=== PATIENT | female | born 1965 | race Caucasian/White ===

== ENCOUNTER 2024-04-13 14:38 | Outpatient (CLI) | payer MEDICARE, OTHER, SELFPAY ==
--- NOTE | ~2024-04-13 | XR_ITS ---
XR abdomen/kub 1V DATE: 04/13/2024 15:11 INDICATION: Calcium kidney stone TECHNIQUE: 2 AP supine views COMPARISON: None FINDINGS: Approximately 5 mm calcification overlies the mid right kidney. At least 2 pinpoint calcifi cations also overlie the lower right renal silhouette. These may be renal calcified calculi or these could be within overlying bowel or other structures. Noncontrast CT abdomen pelvis with the more accu rate and sensitive for detection of urinary tract calculi. Probable splenic calcifications overlie the left upper quadrant. The psoas shadows are intact. No visceromegaly is evident. The bowel gas pattern is unremarkable, without evidence of obstruction. Status post bilateral total hip arthroplasty. IMPRESSION: Cannot exclude right renal calcified calculi; noncontrast CT abdomen pelvis with be more accurate and sensitive for detection of urinary tract calculi. Reviewed, dictated and finalized at [facility]. Reviewed, dictated and finalized at [facility]. PRINT ENGINEER IMPRESSION: Cannot exclude right renal calcified calculi; noncontrast CT abdome n pelvis with be more accurate and sensitive for detection of urinary tract darren culi.
== END 2024-04-13 14:39 | disposition home or self-care (01) ==
PROVIDERS: PCP Family Medicine; Visit Provider Urology
DX: N20.0 Calculus of kidney (principal)
CPT/HCPCS: 74018

== ENCOUNTER 2024-04-17 00:20 | Day surgery (SDC) | payer OTHER, MEDICARE, SELFPAY ==
[2024-04-16 08:49] VITALS: BMI 25.1
--- NOTE | 2024-04-16 08:58 | PC.NURSE ---
Report to the Outpatient Waiting Room, entrance under the green pavilion located off [facility], at time _1045_ on date _[id number]_. Planned Procedure Time: _1245_.? Time changes happen often and if your time is changed the preop area will call you the afternoon before. - You and your visitor will be asked to self-screen and do not enter if you have any COVID symptoms. Please call surgeon if you need to reschedule. - A mask is optional within the hospital at this time. Patients may have clear liquids (water, carbonated beverages, clear teas, apple juice) until 3 hours prior to surgery with a maximum of 20 ounces. - No food from midnight until time of surgery and no smoking. This includes no chewing gum, candy or mints. Take only the following medications with a SIP of water on the morning of surgery: ___Alprazolam and Fluoxetine DO NOT STOP ANY OF YOUR OTHER PRESCRIPTION MEDICATIONS PRIOR TO SURGERY EXCEPT THE FOLLOWING Medications to discontinue per physician Vitamins Date to take last dose____Stop now Please no make-up, nail nepali, hairspray, perfume, deodorant, or body powder the day of surgery.? No jewelry (including any body piercings) or valuables the day of surgery, leave them at home.? Please take a shower or bath the night before, or the morning of, surgery with an antibacterial soap.? Wear comfortable, loose fitting clothing.? - Jewelry must be removed prior to entering the operating room.? Rings and piercings that are not removed may be cut off. - The hospital will not accept responsibility for valuables.? - Please leave all valuables, including medications, at home the day of surgery. If you are going home after surgery, a licensed regional company flatbed truck driver must drive you home.? - NO public transportation without another adult if you receive anesthesia. - We recommend that an adult stay with you for 24 hours following discharge. - We also recommend that you do not drive, make important decision, drink alcoholic beverages, or take any drugs that were not prescribed by your health care provider for at least 24 hours after your discharge time. Follow any additional instructions given to you from your surgeon. Telephone instructions given to _Sri___and asked if any additional questions and then verbalized understanding. Patient advised to call surgeon office or pre surgery nurse liaison [phone] if any additional questions.
[2024-04-17] VITALS (10 sets, daily range): BP systolic 106–138; BP diastolic 66–95; PULSE 60–77; RESP 12–20; TEMP 36.2; O2SAT 92–100; BMI 25.6
--- NOTE | ~2024-04-17 | XR_ITS ---
EXAMINATION: XR retrograde pyelo w/stent RT DATE: 04/17/2024 13:00 ACADEMIC SUPPORT ASSISTANT INDICATION: RIGHT RETRO/STENT . TECHNIQUE: 5 fluoroscopic images of the abdomen and pelvis were obtained during right retrograde pyel ography with stent placement, performed by Kali Mcgee MD. I was not present during the pr ocedure. Fluoroscopy exposure time was 23.3 seconds. Air Kerma 7.39 mGy. DAP 0.60182 mGym2. COMPARISON: X-ray abdomen 04/13/2024 FINDINGS/IMPRESSION: Fluoroscopic documentation of right retrograde pyelography with stent placement. Please refer to the operative note for complete procedural details . Reviewed, dictated and finalized at [facility]. EMIC SUPPORT ASSISTANT
--- NOTE | 2024-04-17 10:46 | ECG_ITS ---
Test Date: 2024-04-17 11:17:45 Measurements Intervals [place] Rate: 61 P: 49 MA: 188 QRS: 0 QRSD: 78 T: 55 QT: 393 QTc: 397 Interpretive Statements SINUS RHYTHM POSSIBLE LEFT ATRIAL ENLARGEMENT [-0.1mV P-WAVE IN V1/V2] LOW QRS VOLTAGE IN PRECORDIAL LEADS [QRS DEFLECTION < 1.0 mV IN CHEST LEADS] No previous ECG available for comparison Electronically Signed On 04-17-2024 15:00:13 WASHERETTE MACHINE OPERATOR by Libby Wong M.D.
[2024-04-17 10:59] LABS: Add Urine Microscopic? YES; Appearance Urine Cloudy (Clear); Bacteria Urine None Seen /hpf; Bilirubin Urine Negative (Negative); Blood Urine 3+ (Negative); Color Urine Yellow (Yellow); Glucose Urine UA Negative (Negative); Ketones Urine Negative (Negative); Leukocyte Esterase Ur 2+ LEU/UL (Negative); Nitrate Urine Negative (Negative); Non Pathogenic Casts 0-2; Protein Urine 2+ mg/dL (Negative); RBC Urine >100 /hpf (0-2); Specific Grav Ur 1.022 (1.001-1.035); Squamous Epithelial Cell Urine Occasional /hpf (Few); Urobilinogen Urine 0.2 mg/dL (<2.0); WBC Urine 51-100 /hpf (0-3)
[2024-04-17] MEDS: LACTATED RINGERS 1,000 ML 30 ML IV CONT (11:00)
--- NOTE | 2024-04-17 11:47 | P.PNAN_ITS ---
Anes - Initial Pre Proc Eval Procedure: Operation Date: 04/17/24 12:45 Proposed Procedures p Cystoscopy, Right Ureteroscopy, Possible Right Retrograde Pyelogram, Possible Right Stone Extraction, Possible Right Stent Placement, Possible Holmium Laser - Kali Mcgee MD Date/Time: 04/17/24 11:47 Surgeon: Kali Mcgee MD Pre Op Diagnosis: right renal stone Patient Data Age: 59 Gender: F Height: 1.73 m Weight: 75 kg Allergies Allergy/AdvReac Type Severity Reaction Status Date / Time No Known Allergies Allergy Verified 04/16/24 08:40 Home Medications ?Medication ?Instructions ?Recorded ?Confirmed ?Type alprazolam 1 mg tablet 1 mg PO TID 04/16/24 04/16/24 History atorvastatin 40 mg tablet 40 mg PO QPM 04/16/24 04/16/24 History calcium 600 mg capsule 600 mg PO DAILY 04/16/24 04/16/24 History cholecalciferol (vitamin D3) 25 25 mcg PO DAILY 04/16/24 04/16/24 History mcg (1,000 unit) capsule (Vitamin D3) estradiol 0.05 mg/24 hr semiweekly 0.05 mg topical 2XW 04/16/24 04/16/24 History transdermal patch fluoxetine 20 mg capsule 20 mg PO DAILY 04/16/24 04/16/24 History lamotrigine 200 mg tablet 200 mg PO HS 04/16/24 04/16/24 History pjjunsdq-mbuu-bhf-folic acid 18 1 tablet PO DAILY 04/16/24 04/16/24 History mg-0.4 mg tablet (One Daily For Women) olanzapine 20 mg tablet 20 mg PO HS 04/16/24 04/16/24 History progesterone micronized 100 mg 100 mg PO HS 04/16/24 04/16/24 History capsule sumatriptan succinate 100 mg tablet 100 mg PO DAILY PRN Migraine 04/16/24 04/16/24 History Headache tamsulosin 0.4 mg capsule 0.4 mg PO QPM 04/16/24 04/16/24 History Laboratory Tests 04/17/24 10:46 Urine Color Yellow (Yellow) Urine Appearance Cloudy H (Clear) Urine pH 6.0 (5.0-9.0) Ur Specific [place] 1.022 (1.001-1.035) Urine Protein 2+ H mg/dL (Negative) Urine Glucose (UA) Negative mg/dL (Negative) Urine Ketones Negative mg/dL (Negative) Ur Blood (Man) 3+ H (Negative) Urine Nitrate Negative (Negative) Urine Bilirubin Negative (Negative) Urine Urobilinogen 0.2 mg/dL (<2.0) Ur Leukocyte Esterase 2+ H [place]/UL (Negative) Urine RBC >100 H /hpf (0-2) Urine WBC 51-100 /hpf (0-3) Ur Squamous Epith Cells Occasional /hpf (Few) Urine Bacteria None seen /hpf Urine Casts 0-2 Patient hx anesthesia problems: none Family hx anesthesia problems: none Results Review: All pre-operative results and documents have been reviewed as part of the pre- operative evaluation. [facility] Social History Social History Smoking status: Never smoker Alcohol intake: current Living arrangements: with family Spiritual care concerns: No Anes - Eval Final PreProcedure Day of Procedure 04/17/24 11:47 Patient weight: normal Heart: regular rate and rhythm Lungs: clear to auscultation Airway: Mallampati scale class II Neurological: alert and oriented Last oral intake: >/= 8 hours ASA classification: III Emergent: no Anesthetic plan: proceed Anesthesia type and monitoring: general LMA and standard monitoring Results Review: All pre-operative results and documents have been reviewed as part of the pre- operative evaluation. Informed Consent: The patient's anesthetic plan and its attendant risks and benefits were discussed with the patient/family/POA. Questions were solicited and answers provided to the satisfaction of the patient/family/POA.
[2024-04-17] MEDS: fentaNYL CITRATE INJ (*CRX) 100 MCG/2 ML VIAL 50 MCG IV PUSH (12:17)
--- NOTE | 2024-04-17 12:36 | WPDHPUPDATE1 ---
History and Physical Update Update Date/Time: 04/17/24 12:36 History and Physical has been reviewed, including an updated exam of the patient. There are NO changes in the patient's condition. Risks, benefits, and alternatives have been discussed and questions answered. Patient agrees to proceed with procedure. Proceed with cystoscopy, right retrograde, right ureteroscopy with stone extraction, possible laser, stent placement
--- NOTE | 2024-04-17 12:49 | PM.IMHP ---
H&P: HPI History of Present Illness Date/Time: 04/17/24 12:49 Chief Complaint: 6 mm right upj calculus Narrative: 59 yr old with 6mm right upj calculus. Here for right ureteroscopy Review of Systems Review of Systems: All systems reviewed & are unremarkable except as noted in HPI and below [facility] Social History Social History Smoking status: Never smoker Alcohol intake: current Living arrangements: with family Spiritual care concerns: No Meds Home Medications and Allergies Home Medications ?Medication ?Instructions ?Recorded ?Confirmed ?Type alprazolam 1 mg tablet 1 mg PO TID 04/16/24 04/17/24 History atorvastatin 40 mg tablet 40 mg PO QPM 04/16/24 04/16/24 History calcium 600 mg capsule 600 mg PO DAILY 04/16/24 04/16/24 History cholecalciferol (vitamin D3) 25 25 mcg PO DAILY 04/16/24 04/16/24 History mcg (1,000 unit) capsule (Vitamin D3) estradiol 0.05 mg/24 hr semiweekly 0.05 mg topical 2XW 04/16/24 04/16/24 History transdermal patch fluoxetine 20 mg capsule 20 mg PO DAILY 04/16/24 04/17/24 History lamotrigine 200 mg tablet 200 mg PO HS 04/16/24 04/16/24 History hprdesya-asds-frw-folic acid 18 1 tablet PO DAILY 04/16/24 04/16/24 History mg-0.4 mg tablet (One Daily For Women) olanzapine 20 mg tablet 20 mg PO HS 04/16/24 04/16/24 History progesterone micronized 100 mg 100 mg PO HS 04/16/24 04/16/24 History capsule sumatriptan succinate 100 mg tablet 100 mg PO DAILY PRN Migraine 04/16/24 04/16/24 History Headache tamsulosin 0.4 mg capsule 0.4 mg PO QPM 04/16/24 04/16/24 History Allergies Allergy/AdvReac Type Severity Reaction Status Date / Time No Known Allergies Allergy Verified 04/17/24 12:00 Vital Signs Vital Signs - 24 hr 04/17/24 09:05 Temperature 36.2 C L Pulse Rate 70 Respiratory Rate 16 Blood Pressure 138/86 Pulse Oximetry 96 Oxygen Delivery Room Air Exam Const: General: cooperative; No comfortable Resp: Effort & Inspection: normal respiratory effort Cardio: Rate: regular rate Rhythm: regular rhythm H&P: Results Labs Labs: Urine 04/17/24 Range/Units 10:46 Urine Color Yellow (Yellow) Urine Appearance Cloudy H (Clear) Urine pH 6.0 (5.0-9.0) Ur Specific [place] 1.022 (1.001-1.035) Urine Protein 2+ H (Negative) mg/dL Urine Glucose (UA) Negative (Negative) mg/dL Assessment and Plan Assessment and plan (1) Right renal stone: Code(s): N20.0 - Calculus of kidney Status: Acute Assessment and Plan: Cystoscopy, right retrograde, right ureteroscopy with laser, stent placement.
[2024-04-17] MEDS: ceFAZolin 2 GM/D5W 50 ML 2 GM/50 ML BAG IVPB (12:55)
--- NOTE | 2024-04-17 13:32 | P.OP_ITS ---
Procedure Note - Detailed Date of Procedure 04/17/24 Pre-op Diagnosis right renal stone-6 mm Post-op Diagnosis Same Procedure Performed Cystoscopy, right retrograde, right ureteroscopy with stone extraction, right ureteral stent placement 4.8 [place] contour Surgeon Kali Mcgee MD Anesthesia General Description of Procedure Patient was taken to the operative suite correctly identified. Once anesthesia was obtained she was placed in dorsal lithotomy position and prepped and draped usual sterile fashion. Nineteen [place] scope was inserted into the urethra. Right ureteral orifice was cannulated with a guidewire. I dilated the orifice with an 810 dilator. Access sheath was then placed. Mini flexible ureteral scope was inserted. The stone was in the renal pelvis. Using escape basket was removed retrieved in 1 piece. Pyelogram was then performed to confirm placement of the stent. 4.8 [place] contour stent was placed with the proximal end coiled in the renal pelvis and the distal in the bladder. 2% viscous lidocaine was inserted urethra patient is taken recovery stable condition. She will follow-up in a week's time for stent removal. We will discuss and schedule lithotripsy of the left renal stones at that time. This completes dictation. Please send a copy of op note to my office Estimated Blood Loss 0 Drains Yes Packing No Pathology Yes Complications No immediate complications Condition Stable Disposition PACU
[2024-04-17] MEDS: oxyCODONE HCL (*CRX) 5 MG TAB IR PO (15:10)
== END 2024-04-17 15:47 | disposition home or self-care (01) ==
PROVIDERS: PCP Family Medicine; Visit Provider Urology
PROC: (CPT 52352; principal; 2024-04-17 12:45)
DX: N20.0 Calculus of kidney (principal)
CPT/HCPCS: 52356; 74420; 81001; 82365; 88300; 93005; A9270; C1758; C1769; C2617; J0690; J2250; J3010; J7120; Q9966

== ENCOUNTER 2024-05-29 13:58 | Outpatient (CLI) | payer OTHER, MEDICARE, SELFPAY ==
--- NOTE | ~2024-05-29 | XR_ITS ---
Exam: Abdomen 2V HISTORY: CALCIUM KIDNEY STONE. F/U. LITHO X 1 MO AGO RT SIDE COMPARISON: 04/13/2024 TECHNIQUE: Supine images of the abdomen and pelvis. FINDINGS: Bowel gas pattern is non-obstructive. There is no free air or deep sulci. Multiple stones are identified within the bilateral kidneys. The larger of many stones which were present in the right kidney are no longer seen on today's examin ation. Remaining stones persists. Lung bases are unremarkable. Bones and soft tissues are unremarkable. IMPRESSION: Nonspecific, nonobstructive bowel gas pattern. Interval resolution of the largest of the right-sided renal calculi, detected on previous examination . Reviewed, dictated and finalized at location [facility]. THESIOLOGY FELLOW IMPRESSION: Nonspecific, nonobstructive bowel gas pattern. Interval resolution of the largest of the right-sided renal calculi, detected o n previous examination.
--- OUTSIDE RECORDS SUMMARY | 2024-05-31 18:41 | XMS_ITS | Referral Summary ---
Author Organization [facility] Address [address] [place] [id number] Care Team Providers Care Director Of Accounts Receivable Name Role Phone Philip Vergara MD Primary Care Provider [phone] Safia Romano MD Unavailable [phone] Allergies Active Allergy Reactions Criticality Noted Date Comments Amitriptyline Hcl Unknown High 11/23/2010 Auditory and visual hallucinations Clindamycin Cough,Hives,Itching, Rash Medium 01/26/2016 Amitriptyline Unknown 08/26/2011 Polysorbate Rash Medium 11/23/2010 Quetiapine Unknown 07/04/2008 Ziprasidone Unknown 10/03/2014 Ziprasidone Hcl Unknown 07/04/2008 Sertraline Unknown 07/04/2008 Medications ALPRAZolam (XANAX) 1 mg tablet Take 1 tablet (1 mg total) by mouth 3 (three) times a day as needed 5 9 Active cholecalciferol (VITAMIN D-3) 2,000 unit tablet Take 1 tablet (2,000 Units total) by mouth incising machine operator before breakfast 9 Active lamoTRIgine (LaMICtal) 200 mg tabletIndicatio ns:Depression associated with Bipolar Disorder Take 1 tablet (200 mg total) by mouth nightly at bedtime. 1 9 Active FLUoxetine (PROzac) 20 mg capsule Take 1 capsule (20 mg total) by mouth incising machine operator before breakfast Active atorvastatin (LIPITOR) 40 mg tablet Take 1 tablet (40 mg total) by mouth nightly 0 Active melatonin tablet Take 20 tablets (20 mg total) by mouth nightly 1 Active pramipexole (MIRAPEX) 1 mg tabletIndicatio ns:Restless Legs Syndrome Take 1 tablet (1 mg total) by mouth 2 (two) times a day with lunch and bedtime 1 Active SUMAtriptan (IMITREX) 100 mg tablet Take 1 tablet (100 mg total) by mouth as needed 1 Active OLANZapine (ZyPREXA) 20 mg tablet Take 1 tablet (20 mg total) by mouth nightly 1 Active amoxicillin 500 mg capsule Take 1 tablet/capsule (500 mg total) by mouth For dental procedures 2 Active HYDROcodone-john taminophen (NORCO) 5-325 mg per tablet Take 1 tablet by mouth 2 Active acetaminophen (TYLENOL) 500 mg tablet Take 1 tablet (500 mg total) by mouth every 6 (six) hours as needed for pain Active dorzolamide-zohra oloL (COSOPT) 22.3-6.8 mg/mL ophthalmic solution 1 drop 2 (two) times a day 3 Active hydrOXYzine (VISTARIL) 50 mg capsule hydroxyzine pamoate 50 mg capsule TAKE 1 CAPSULE (50 MG TOTAL) BY MOUTH EVERY 6 (SIX) HOURS Active montelukast (SINGULAIR) 10 mg tablet Take 1 tablet (10 mg total) by mouth every evening 3 Active phentermine (ADIPEX-P) 37.5 mg tablet Take 1 tablet (37.5 mg total) by mouth daily before breakfast 3 Active predniSONE (DELTASONE) 20 mg tablet TAKE 1 TABLET BY MOUTH TWICE A DAY FOR 5 DAYS AND THEN 1 TABLET DAILY FOR 5 DAYS 3 Active rivaroxaban (Xarelto) 10 mg tablet Xarelto 10 mg tablet TAKE 1 TABLET BY MOUTH EVERY DAY Active terbinafine (LamiSIL) 250 mg tablet terbinafine HCl 250 mg tablet TAKE 1 TABLET (250 MG) BY MOUTH ONCE DAILY Active meloxicam (MOBIC) 15 mg tablet Take 1 tablet (15 mg total) by mouth daily 90 tablet 3 Active Active Problems Problem Noted Date Diagnosed Date Anxiety 06/10/2021 Asthma 06/10/2021 History of migraine headaches 06/10/2021 At risk for obstructive sleep apnea 06/10/2021 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 Overview (05/26/2021): Added automatically from request for surgery [id number] Acute glaucoma of right eye 02/09/2021 Acute kidney injury 02/09/2021 Depression 02/09/2021 Borderline type 2 diabetes mellitus 02/09/2021 Closed dislocation of left hip 02/09/2021 Controlled restless legs syndrome 02/09/2021 Diabetes mellitus with stage 1 chronic kidney disease ([facility]/HCC) 02/09/2021 Fall injury while running 02/09/2021 History of total right hip replacement Hyperleukocytosis 02/09/2021 Increasing frequency of seizure activity 021 Migraine without status migrainosus, not intract able 02/09/2021 Neuropathy of left hand 02/09/2021 Normocytic anemia 02/09/2021 Opioid use 02/09/2021 Well child examination 02/09/2021 Hip joint instability, left 10/27/2020 Overview (10/27/2020): Added automatically from request for surgery [id number] Osteoarthritis of left hip 06/08/2018 Bilateral groin pain 05/04/2018 Myalgia, other site 05/04/2018 CKD (chronic kidney disease) stage 3, GFR 30-59 ml/min 02/27/2018 Serum creatinine raised 09/21/2017 Cellulitis, gluteal, left 09/12/2017 Multiple melanocytic nevi 09/09/2016 Costochondritis 10/09/2015 Dysuria 10/09/2015 Seborrheic keratosis, inflamed 02/21/2015 Compound nevus 02/21/2015 History of malignant melanoma 02/21/2015 Bipolar disorder 10/03/2014 Contact dermatitis 10/03/2014 Viral exanthem 07/22/2014 Actinic keratosis 06/06/2014 Hyperlipidemia 01/11/2012 Benign neoplasm of skin 11/30/2010 Malignant melanoma of skin 11/30/2010 Immunizations Name Administration Dates Next Due Influenza, Quadrivalent, Spl it, Preservative Free, Intramuscular 01/08/2021,01/18/2020 Social History Tobacco Use Types Packs/Day Years Used Date Smoking Tobacco: Never Smokeless Tobacco: Never Tobacco Cessation:Counseling Given: Not Answered Alcohol Use Standard Drinks/Week Comments Yes 0 (1 standard drink = 0.6 oz pur e alcohol) AUDIT-C Answer Date Recorded Q1: How often do you have a drink containing alc ohol? Monthly or less 06/17/2021 Average Number of Drinks Not on file 022 Frequency of Binge Drinking Not on file 01/2022 Comments No Sex and Gender Information Value Date Recorded Sex Assigned at Not on file Legal Sex Female 2:28 AM ENERGY CONTROL OFFICER Gender Identity Female 05/27/2021 1:46 PM ENERGY CONTROL OFFICER Sexual Orientation Not on file Occupation Industry Job Start Date Job End Date disabled Not on file Not on file Not on file Last Filed Vital Signs Vital Sign Reading Time Taken Comments Blood Pressure 127/79 06/18/2021 4:56 PM ENERGY CONTROL OFFICER Pulse 90 06/18/2021 4:56 PM ENERGY CONTROL OFFICER Temperature 36.4 ??C (97.5 ??F) 06/18/2021 4:56 PM CS T Respiratory Rate 16 06/18/2021 4:56 PM ENERGY CONTROL OFFICER Oxygen Saturation 94% 06/18/2021 4:56 PM ENERGY CONTROL OFFICER Inhaled Oxygen Concentration - - Weight 85.8 kg (189 lb 3.2 oz) 06/17/2021 8:08 A M ENERGY CONTROL OFFICER Height 175.3 cm (5' 9 ) 06/17/2021 8:08 AM ENERGY CONTROL OFFICER Body Mass Index 27.94 06/17/2021 8:08 AM ENERGY CONTROL OFFICER Plan of Treatment Not on file Medical Devices Implanted Type Area Big Data Solutions Architect Device Identifier Shelf Expiration Date Model / Serial / Lot Hip Bilateral : Hip Wrist Left: Wrist Description:Screws [employer]/ Ortho [id number] 40mm 22mm 2 Mobility Insert Acetabular Xlpe - [id number] Implanted:Qty: 1 on 06/17/2021 by Nate Little MD at [facility] Left: Hip [employer]/Or tho [id number] 09/30/2030 [id number] / / [id number] [employer]/ Ortho [id number] Or3o 40mm 2 Mobility Liner Acetabular - [id number] Implanted:Qty: 1 on 06/17/2021 by Nate Little MD at [facility] Left: Hip [employer]/Or tho [id number] 10/06/2030 [id number] / / [id number] [employer]/ Ortho [id number] 22mm Hip +8mm 12/14 Head Femoral Oxinium - [id number] Implanted:Qty: 1 on 06/17/2021 by Nate Little MD at [facility] Left: Hip [employer]/Or tho [id number] 01/03/2031 [id number] / / [id number] Procedures Procedure Name Priority Date/Time Associated Diagnosis Comments SCREENING MAMMOGRAM BILATERAL W KP Schedule Routine, Read Routine (OP Routine) 02/20/2024 2:55 PM CDT Encounter for screening mammogram for malignant neoplasm of breast EGFR Routine 06/18/2021 3:01 AM ENERGY CONTROL OFFICER HEMOGLOBIN A1C Routine 10/01/2020 7:34 AM CDT LIPID PANEL Routine 10/01/2020 7:34 AM CDT from Last 3 Months or Most Recently Relevant to Health Maintenance Results * Screening Mammogram Bilateral W Kp (02/20/2024 2:55 PM CDT) Anatomical Region Laterality Modality Breast Bilateral Mammography Impressions 02/20/2024 3:06 PM CDT BI-RADS?? ATLAS category (overall): 1 - Negative There is no mammographic evidence of malignancy. A 1 year screening mammogram is recommended. The patient has been or will be contacted. We recommend annual screening mammography for women at average risk of breast cancer beginning at age 40, based on guidelines of the [place] [employer] (ACR Practice Parameter for the Performance of Screening and Diagnostic Mammography) and [place] [employer]. For women with and elevated risk of breast cancer, please refer to the ACR Practice Parameter for specific screening recommendations. The patient will be entered into a reminder system with a target due date of 1 year for her next screening exam. Narrative 02/20/2024 3:06 PM CDT Screening Mammogram Bilateral W Kp: 02/20/24 The study was acquired using full field digital technology and interpreted from soft copy. 2D digital mammographic views, as well as 3D digital tomosynthesis were performed in the CC and MLO projections. CLINICAL: ??Encounter for screening mammogram for malignant neoplasm of breast. ??No relevant medical history has been documented for this patient. History of breast cancer in Neg Hx. COMPARISONS: 02/15/2023 Screening Mammogram Bilateral W Kp 11/13/2021 Diagnostic Mammogram Right W Kp 10/06/2021 Screening Mammogram Bilateral W Kp 09/25/2020 Screening Mammogram Bilateral W Kp 08/23/2018 Screening Mammogram Bilateral W Kp 08/17/2017 Screening Mammogram Bilateral W Kp BREAST TISSUE: The breasts are heterogeneously dense, which may obscure small masses. FINDINGS: No suspicious masses, suspicious calcifications, or other suspicious findings are seen within either breast. There has been no suspicious change. us Aleshia Winston MD IMG MAMMO PROCEDURES Final Res ult * eGFR (06/18/2021 3:01 AM ENERGY CONTROL OFFICER) eGFR 75 mL/min/1. 73 m2 [facility] Comment: Interpretive Data Reference Interval Normal ?>/= 90 mL/min/1.73m2 Mildly decreased* ? 60 - 89 mL/min/1.73m2 Mildly to moderately decreased ?45 - 59 mL/min/1.73m2 Moderately to severely decreased ??30 - 44 mL/min/1.73m2 Severely decreased ?15 - 29 mL/min/1.73m2 Kidney Failure ?< 15 ??mL/min/1.73m2 *Relative to young adult level Estimated glomerular filtration rate is determined by the 2020 CKD-EPI equation recommended by the National Kidney Foundation (A Unifying Approach to GFR Estimation: Recommendations of the NKF-ASK Task Force on Reassessing the Inclusion of Race in Diagnosing Kidney Disease, JASN 2020). The CKD-EPI equation should not be used for patients with unstable renal function and has not been validated in children and those over 70. Current interpretive data was last reviewed 2021. Blood 06/18/2021 3:01 AM ENERGY CONTROL OFFICER 06/18/2021 3:03 AM ENERGY CONTROL OFFICER us Rik San MD LAB BLOOD ORDERABLES Final Result Performing Organization Address [facility]/ZIP Co de Phone Number [facility] [id number] [facility]. Department [place] [address] * (ABNORMAL) Hemoglobin A1c (10/01/2020 7:34 AM CDT) Pathologist [facility] Hemoglobin A1c % 5.7(H) 4.0 - 5.6 % [facility] Comment: ADA 2016 GUIDELINES: ??Initial Diagnostic Criteria ? HbA1c Result: ?Interpretation: ?<5.7% ? Normal ?5.7-6.4% ?At risk for diabetes mellitus ?>=6.5% ?Consistent with diabetes mellitus ??Diabetes monitoring ? Target value (ADA Recommended) ?? <7% 10/01/2020 7:34 AM CDT 10/01/2020 7:44 AM CDT Narrative Resulting Agency Comment IN us Jaun Evangelista MD LAB BLOOD ORDERABLES Final Result Performing Organization Address [facility]/ZIP Co de Phone Number [facility] [address] [place] [address], [facility] [phone] * Lipid panel (10/01/2020 7:34 AM CDT) Pathologist [facility] Triglycerides 106 0 - 149 mg/dL [facility] Comment: National Lipid Association/NCEP Guidelines: ?? Normal ?< 150 mg/dL ?? Borderline high ?? 150-199 mg/dL ?? High ?200-499 mg/dL ?? Very High ? >=500 mg/dL Cholesterol 133 0 - 199 mg/dL [facility] Comment: National Lipid Association/NCEP Guidelines: Desirable ? < 200 mg/dL Borderline high: ??200-239 mg/dL High Risk: ?>=240 mg/dL HDL Cholesterol 44 mg/dL [facility] Comment: Reference Ranges: ? Males: >=40 mg/dL ? Females: >=50 mg/dL LDL Cholesterol, Calc 68 0 - 129 mg/dL [facility] Comment: National Lipid Association/NCEP Guidelines: ??Optimal ? < 100 mg/dL ??Near Optimal ?100-129 mg/dL ??Borderline high 130-159 mg/dL ??High ?>=160 mg/dL Cholesterol/HDL Ratio 3.0 [facility] Comment: Optimal ??< 3.5:1 High ? > 5:1 10/01/2020 7:34 AM CDT 10/01/2020 7:44 AM CDT Narrative Resulting Agency Comment IN us Jaun Evangelista MD LAB BLOOD ORDERABLES Final Result [facility] [address] [place], [place] [id number] [place] [address] from Last 3 Months or Most Recently Relevant to Health Maintenance Insurance MEDICARE [facility]O Address: [address] [address] [place] [address] MEDICARE [facility]O Address: [address] [address] [place] [address] MEDICARE [facility]O Address: [address] [address] [place] [address] Advance Directives For more information, please contact: [phone] * Full Code (Latest Code Status on File) Date Activated Date Inactivated Comments 06/17/2021 12:53 PM 06/18/2021 9:57 PM Care Teams Director Of Accounts Receivable Relationship Specialty Start Date End Date Philip Vergara MD [phone] [address] PCP - General Family Medicine 10/18/18 Safia Romano MD [address] [address] Consulting Physician Obstetrics and Gynecology 10/06/21
--- OUTSIDE RECORDS SUMMARY | 2024-05-31 18:41 | XMS_ITS | Data Portability ---
Author Organization [facility] , [facility] Address [address] [place] [address] Assessment No assessment recorded. Plan of Treatment Reminders Order Date Submit Date Provider Last Modified By Organization Details Last Modified Time Details Appointments None recorded. Lab HPV E6+E7 mRNA, qualitative PCR, cervix 2021 022 [facility], [address] [place], [address], 2 15:47:18 pap, LB 2021 022 [facility], [address] [place], [address], 2 17:53:52 pap, LB 2023 024 [facility], [address] [place], [address], 4 15:52:32 HPV E6+E7 mRNA, qualitative PCR, cervix 2023 024 [facility] [facility], [address] [place], [address], 4 09:20:56 Referral None recorded. Procedures None recorded. Surgeries None recorded. Imaging MAMMO, screening, digital, bilateral 2021 [facility] Central Counts Include [facility], [address] [place], [address], 2 13:43:56 MAMMO, screening, digital, bilateral [address] [facility] Central Counts Include [address] [facility], [address] [place], [address], 4 16:10:06 Medication Orders Estrace 0.01% (0.1 mg/gram) vaginal cream 2023 024 [id number], [address], [place], [address], 4 15:43:42 Prometrium 100 mg capsule 2023 024 [id number], [address], [place], [address], 4 15:43:41 Vivelle-Dot 0.05 mg/24 hr transdermal patch 2023 024 [id number] [address], [place], [address], 4 15:43:43 Patient TargetsNo targets recorded. Patient Instructions Encounter Date Encounter Id Patient Instructions Last Modified By Organization Details Last Modified Time 03/18/2022 [id number] A healthy lifestyle: care instructions Not available 03/18/2022 13:54:44 substance use disorder: care instructions Not available 03/18/2022 13:54:44 tobacco cessation Not availabl e 03/18/2022 13:54:44 calcium and vitamin D combination Not available 03/18/2022 13:54:44 depression (wome n only) Not available 03/18/2022 13:54:44 eating healthy foods: care instructions Not available 03/18/2022 13:54:44 exercise program : getting started Not available 03/18/2022 13:54:44 12/27/2023 [id number] body mass index: care instructions Not available 12/27/2023 13:57:44 mammogram: about this test Not available 12/27/2023 13:57:44 Reason for Referral None Reported. Results Created Date Observation Date Name Description Value Unit Range Abnormal Flag Note LastModifiedBy Organization Detail LastModifiedTime 03/18/20 22 03/19/2022 HPV HIGH RISK HPV high risk Negati ve negati ve normal The HPV High Risk assay is inten ded for use as co-te sting with cytol ogy and not as a subst itute for regul ar cervi darren cytol ogy scree alayna. This assay is not inten ded for use as a scree alayna devic e for women under age 30 with lawrence l cervi darren cytol ogy. Not Available [facility] [address] [place], [address], 03/19/2022 15:47:18 03/18/2003/23/2022 THINP REP TIS PAP clinical information: normal None given Not Available [facility] [address] [place], [address], 03/23/2022 17:53:52 03/18/20 22 03/23/2022 THINP REP TIS PAP LMP: normal NONE GIVEN Not Available [facility] [address], [address], 03/23/2022 17:53:52 03/18/20 22 03/23/2022 THINP REP TIS PAP prev. Pap: normal NONE GIVEN Not Available [facility] [address] [place], [address], 03/23/2022 17:53:52 03/18/20 22 03/23/2022 THINP REP TIS PAP prev. BX: normal NONE GIVEN Not Available [facility] [address] [place], [address], 03/23/2022 17:53:52 03/18/20 22 03/23/2022 THINP REP TIS PAP source: normal Cervi x Not Available [facility] [address] [place], [address], 03/23/2022 17:53:52 03/18/20 22 03/23/2022 THINP REP TIS PAP statement of adequacy: normal SATIS FACTO RY FOR EVALU ATION Not Available [address] [address] [place], [address], 03/23/2022 17:53:52 03/18/20 22 03/23/2022 THINP REP TIS PAP interpretati on/result: Negat blue for intra epith elial lesio n or malbelen sernacy . [place] boss rn; predo amina galan parab ronda cells Not Available [address] [address] [place], [address], 03/23/2022 17:53:52 03/18/20 22 03/23/2022 THINP REP TIS PAP comment: normal This Pap test has been evalu ated with compu ter jose ramiro techn ology . Not Available [address] [address] [place], [address], 03/23/2022 17:53:52 03/18/20 22 03/23/2022 THINP REP TIS PAP cytotechnolo gist: normal XUAN, CT( CP) CT scree alayna locat ion: [address] [address] [place] [address] Not Available [address] [address] [place], [address], 03/23/2022 17:53:52 03/18/20 22 03/23/2022 THINP REP TIS PAP comment EXPLA NATOR Y NOTE: The Pap is a scree alayna test for cervi darren cance r. It is not a diagn ostic test and is subje ct to false negat blue and false posit blue resul ts. It is most relia ble when a satis facto ry sampl e, regul wilma obtai mnapreet, is submi tted with relev ant clini darren findi ngs and histo ry, and when the Pap resul t is evalu ated along with histo nita and curre nt clini darren infor dilcia n. Not Available [address] [place], [address], 03/23/2022 17:53:52 12/27/19 24 01/01/2024 THINP REP TIS PAP clinical information: normal None given Not Available [address], [address], 01/01/2024 15:52:32 12/27/19 24 01/01/2024 THINP REP TIS PAP LMP: normal NONE GIVEN Not Available [address], [address], 01/01/2024 15:52:32 12/27/19 24 01/01/2024 THINP REP TIS PAP prev. Pap: normal NONE GIVEN Not Available [address], [address], 01/01/2024 15:52:32 12/27/19 24 01/01/2024 THINP REP TIS PAP prev. BX: normal NONE GIVEN Not Available [address], [address], 01/01/2024 15:52:32 12/27/19 24 01/01/2024 THINP REP TIS PAP source: normal None given Not Available [address], [address], 01/01/2024 15:52:32 12/27/19 24 01/01/2024 THINP REP TIS PAP statement of adequacy: normal Satis facto ry for evalu ation . Endoc ervic al/tr ansfo rmati on zone compo nent absen t. Not Available [address] [place], [address], 01/01/2024 15:52:32 12/27/19 24 01/01/2024 THINP REP TIS PAP interpretati on/result: normal Cytol ogy Resul ts: Negat blue for intra epith elial lesio n or malbelen beltran . Not Available [facility] [address] [place], [address], 01/01/2024 15:52:32 12/27/19 24 01/01/2024 THINP REP TIS PAP comment: normal This Pap test has been evalu ated with compu ter jose ramiro techn ology . Not Available [facility] [address] [address], [place], [address], 01/01/2024 15:52:32 12/27/19 24 01/01/2024 THINP REP TIS PAP cytotechnolo gist: normal ESW, CT( CP) CT Scree alayna Locat ion: [facility] [place] [address] [place] [address] Not Available [address] [address] [address], [place], [address], 01/01/2024 15:52:32 12/27/19 24 01/01/2024 THINP REP TIS PAP comment EXPLA NATOR Y NOTE: The Pap is a scree alayna test for cervi darren cance r. It is not a diagn ostic test and is subje ct to false negat blue and false posit blue resul ts. It is most relia ble when a satis facto ry sampl e, regul wilma obtai manpreet, is submi tted with relev ant clini darren findi ngs and histo ry, and when the Pap resul t is evalu ated along with histo nita and curre nt clini darren infor matio n. Not Available [facility] [address] [address], [place], [address], 01/01/2024 15:52:32 12/27/19 24 01/03/2024 HPV HIGH RISK HPV high risk Negati ve negati ve normal The HPV High Risk assay is inten ded for use as co-te sting with cytol ogy and not as a subst itute for regul ar cervi darren cytol ogy scree alayna. This assay is not inten ded for use as a scree alayna devic e for women under age 30 with lawrence l cervi darren cytol ogy. Not Available [facility] [address] [place], [address], 01/04/2024 09:20:56 02/17/20 23 02/15/2023 MAMMO , scree alayna, digit al, bilat eral No observ ation record ed. [address] [facility] [address] [facility], [place], [address], 02/16/2023 09:26:03 02/20/20 24 02/20/2024 MAMMO , scree alayna, digit al, bilat eral No observ ation record ed. [address], [address], 02/20/2024 22:37:33 Result Notes None recorded. Problems Name Problem SNOMED Code Status Onset Date Resolution Date Notes Provider Name and Address Organization Details Recorded Time Breast neoplasm screenin g NOS Completed 201610/01/2016 Screenin g for breast cancer, unspecif ied; Location : None Severity : Moderate Progress : Stable Added By: Samaria Ocampo Add to Current Problems : YES ProblemS tatus: Resolve Not Available [facility] 1 20:40:09 Finding of menstrua l bleeding Completed 201509/29/2015 Oligomen orrhea, unspecif ied; Progress : Stable Added By: Samaria Ocampo Add to Current Problems : NO ProblemS tatus: Resolve Not Available [facility] 2 21:40:[address] Concept Completed 201607/17/2017 Encounte r for follow-u p examinat ion after complete d treatmen t for conditio ns other than malignan t neoplasm ; Progress : Stable Added By: Cris Lin Add to Current Problems : NO ProblemS tatus: Resolve Not Available [facility] 2 21:40:06 Surgical follow-u p - normal [id number] Completed 201607/17/2017 Follow-u p exam followin g surgery; Location : None Severity : Moderate Progress : Stable Added By: Cris Lin Add to Current Problems : YES ProblemS tatus: Resolve Not Available [facility] 1 20:40:09 Breast neoplasm screenin g status [id number] Completed 201610/01/2016 Encounte r for other screenin g for malignan t neoplasm of breast; Progress : Stable Added By: Samaria Ocampo Add to Current Problems : NO ProblemS tatus: Resolve Screenin g for breast cancer, unspecif ied; Location : None Progress : Stable Added By: Samaria Ocampo Add to Current Problems : YES ProblemS tatus: Resolve Not Available [facility] 2 21:40:06 Menometr orrhagia [id number] Completed 201610/02/2017 Menometr orrhagia ; Location : None Progress : Stable Added By: Jackeline Soto Add to Current Problems : YES ProblemS tatus: Resolve Not Available [facility] 2 21:40:05 Oligomen orrhea 16669291 Completed 201509/29/2015 Oligomen orrhea; Location : None Progress : Stable Added By: Samaria Ocampo Add to Current Problems : YES ProblemS tatus: Resolve Not Available [facility] 2 21:40:05 Finding of menstrua l bleeding Completed 201610/02/2017 Excessiv e and frequent menstrua tion with regular cycle; Progress : Stable Added By: Jackeline Soto Add to Current Problems : NO ProblemS tatus: Resolve Not Available [facility] 2 21:40:05 Family planning educatio n done [id number] Completed 201409/20/2014 Family planning advice; Location : None Severity : Moderate Progress : Stable Added By: Fang Huizar Add to Current Problems : YES ProblemS tatus: Resolve Not Available [facility] 1 20:40:10 Herpes simplex 22828489 Completed 201409/20/2014 Herpes simplex, without complica tion; Location : None Progress : Stable Added By: Meckfess el, Fang A Add to Current Problems : YES ProblemS tatus: Resolve Not Available [facility] 21:40:05 Postoper ative follow-u p visit Completed 201607/17/2017 Follow-u p exam followin g surgery; Location : None Progress : Stable Added By: Cris Lin Add to Current Problems : YES ProblemS tatus: Resolve Not Available [facility] 21:40:05 Problem Notes None recorded. Procedures Surgical History Date Name Laterality Status Provider Name and Address Organization Details Recorded Time 02/16/20 23 Most Recent Mammogram completed Safia Romano MD [address] [facility], [place], [address], [facility] 02/16/2023 09:25:43 03/18/20 22 Date of Last [facility] 10/25/2023 15:15:31 05/09/19 14 Date of Last Colonoscopy completed [facility] 03/18/2022 13:40:01 tonsillectomy completed Isabel [facility] 03/18/2022 13:41:08 hernia repair completed [facility] 03/18/2022 13:41:19 total replacement of right hip joint completed Isabel [facility] [facility] IV 03/18/2022 13:41:45 total replacement of left hip joint completed [facility] IV 11/21/2023 15:11:07 Imaging Results Imaging Date Name Status LastModified by Organiz ation Details LastModified Time 02/15/2023 MAMMO, screening, digital, bilateral completed [address] [facility] [address] [facility], [place], [address], 02/16/2023 09:26:03 02/20/2024 MAMMO, screening, digital, bilateral completed [address], [address], 02/20/2024 22:37:33 Procedure Notes None recorded. Medical Equipment None Reported. Allergies No known drug allergies Medications Name Sig Start Date Stop Date Status Note LastModified by Organization Details LastModified Time amoxicill in 500 mg capsule TAKE 4 CAPSULES BY MOUTH 1 HOUR PRIOR TO DENTAL APPOINTM ENT 11/20 completed Not Available Not Available Not Available pramipexo le 1 mg tablet TAKE 1 TABLET BY MOUTH THREE TIMES A DAY active Not Available Not Available No t Available atorvasta tin 40 mg tablet TAKE 1 TABLET BY MOUTH EVERY DAY active Not Available Not Available No t Available metformin 500 mg tablet 1 po BID 03/18 completed metFORMI N 500 mg oral tablet RxNorm: 064263 Allow Substitu tion: True Refill Denied: No Refill DateOccu rred: 07/23/19 15 Edited by: Anabel Rahman) on 02/18/20 21 Stopped by: Anabel Rahman) on Not Available Not Available Not Available lamotrigi ne 200 mg tablet TAKE 1 TABLET BY MOUTH EVERYDAY AT BEDTIME active Not Available Not Available No t Available azithromy db 250 mg tablet TAKE 1 TABLET (250 MG) BY MOUTH ONCE DAILY 03/18 completed Not Available Not Available Not Available Prozac 40 mg capsule Take 2 capsule( s) by mouth qam 12/26 completed Prozac 40 mg oral capsule RxNorm: 019061 Allow Substitu tion: True Refill Denied: No Refill DateOccu rred: 07/23/19 15 Edited by: Anabel Rahman) on 02/18/20 21 Stopped by: nAabel Rahman) on Not Available Not Available Not Available alprazola m 1 mg tablet TAKE 1 TABLET BY MOUTH THREE TIMES A DAY active Not Available Not Available No t Available fluconazo le 150 mg tablet TAKE 1 TABLET BY MOUTH NOW AND MAY REPEAT IN 3 TO 5 DAYS IF NEEDED 11/20 completed Not Available Not Available Not Available Xanax 2 mg tablet Take 1 tablet(s ) by mouth tid prn 2014 active Xanax 2 mg oral tablet RxNorm: 964813 Allow Substitu tion: True Refill Denied: No Refill DateOccu rred: 07/23/19 15 Edited by: Anabel Rahman) on 02/18/20 21 Stopped by: Anabel Rahman) on Not Available Not Available Not Available sumatript an 100 mg tablet PLEASE SEE ATTACHED FOR DETAILED DIRECTIO NS active Not Available Not Available No t Available hydrocodo ne 5 mg-acetam inophen 325 mg tablet TAKE 1 TABLET BY MOUTH EVERY 6 TO 8 HOURS NEEDED FOR PAIN 03/18 completed Not Available Not Available Not Available meloxicam 15 mg tablet TAKE 1 TABLET (15 MG) BY MOUTH DAILY. 11/20 completed Not Available Not Available Not Available prednison e 20 mg tablet TAKE 2 TABLETS BY MOUTH EVERY DAY FOR 5 DAYS 11/20 completed Not Available Not Available Not Available permethri n 5 % topical cream APPLY TOPICALL Y FROM NECK TO FEET AT NIGHT AND RINSE OFF IN MORNING AND REPEAT IN 1 WEEK 11/20 completed Not Available Not Available Not Available sumatript an 50 mg tablet PRN 03/18 completed SUMAtrip freeman succinat e 50 mg oral tablet RxNorm: 454121 Allow Substitu tion: True Refill Denied: No Refill DateOccu rred: 07/31/19 16 Edited by: Anabel Rahman) on 02/18/20 21 Stopped by: Anabel Rahman) on Not Available Not Available Not Available hydroxyzi ne pamoate 50 mg capsule TAKE 1 CAPSULE (50 MG TOTAL) BY MOUTH EVERY 6 (SIX) HOURS 11/20 completed Not Available Not Available Not Available phentermi ne 37.5 mg tablet TAKE 1 TABLET BY MOUTH EVERY DAY BEFORE BREAKFAS T 11/20 completed Not Available Not Available Not Available acyclovir 400 mg tablet 1 p.o. qd 08/15 completed Acyclovi r 400mg Tablet RxNorm: 206565 Allow Substitu tion: True Refill Denied: No For Problem: Herpes simplex, without complica tion Not Available Not Available Not Available estradiol 0.05 mg/24 hr semiweekl y transderm al patch APPLY 1 PATCH TO SKIN TWICE WEEKLY DIRECTED active Not Available Not Available No t Available sulfameth oxazole 800 mg-trimet hoprim 160 mg tablet TAKE 1 TABLET BY ORAL ROUTE TWICE A DAY FOR TEN DAYS 12/26 completed Not Available Not Available Not Available ciclopiro x 8 % topical solution APPLY TO THE AFFECTED AREA(S) TOPICALL Y ONCE DAILY PREFERAB LY AT BEDTIME OR 8 HOURS BEFORE WASHING 11/20 completed Not Available Not Available Not Available oxycodone -acetamin ophen 5 mg-325 mg tablet TAKE 1 TABLET BY MOUTH EVERY 6 HOURS NEEDED FOR PAIN 03/18 completed Not Available Not Available Not Available terbinafi ne HCl 250 mg tablet TAKE 1 TABLET (250 MG) BY MOUTH ONCE DAILY 11/20 completed Not Available Not Available Not Available imiquimod 5 % topical cream packet APPLY THIN LAYER TO AFFECTED AREAS ON RIGHT PRETIBIA L REGION 5X/WEEK X6 WEEKS. 11/20 completed Not Available Not Available Not Available dorzolami de 22.3 mg-timolo l 6.8 mg/mL eye drops INSTILL 1 DROP INTO BOTH EYES TWICE A DAY active Not Available Not Available No t Available monteluka st 10 mg tablet TAKE 1 TABLET BY MOUTH EVERY DAY IN THE EVENING 11/20 completed Not Available Not Available Not Available hydroxyzi ne HCl 25 mg tablet TAKE ONE TABLET NIGHTLY FOR ITCHING. 11/20 completed Not Available Not Available Not Available mupirocin 2 % topical ointment APPLY A SMALL AMOUNT TO AFFECTED AREA 3 TIMES A DAY 11/20 completed Not Available Not Available Not Available estradiol 0.01% (0.1 mg/gram) vaginal cream INSERT 1 GRAM BY VAGINAL ROUTE TWICE A WEEK DIRECTED . active Not Available Not Available No t Available albuterol sulfate HFA 90 mcg/actua tion aerosol inhaler INHALE 1 TO 2 PUFFS BY MOUTH EVERY 4 HOURS NEEDED 11/20 completed Not Available Not Available Not Available fexofenad ine 60 mg-pseudo ephedrine ER 120 mg tablet,ex t.release ,12 hr take 1 tablet by oral route 2 times per day 03/18 completed fexofena dine-pse udoephed rine 60-120 mg oral Tablet, Extended Release 12 hr RxNorm: 300392 Refill Denied: No Refill DateOccu rred: 02/18/20 Edited by: Anabel Rahman) on 02/18/20 21 Stopped by: [email or web address]( Anabel Borrero) on Not Available Not Available Not Available fluoxetin e 20 mg capsule TAKE 1 CAPSULE BY MOUTH EVERY DAY active Not Available Not Available No t Available olanzapin e 20 mg tablet TAKE 1 TABLET BY MOUTH EVERY DAY active Not Available Not Available No t Available progester one micronize d 100 mg capsule TAKE 1 CAPSULE BY MOUTH EVERY DAY active Not Available Not Available No t Available amoxicill in 875 mg-potass ium clavulana te 125 mg tablet TAKE 1 TABLET BY MOUTH TWICE A DAY 11/20 completed Not Available Not Available Not Available cyclobenz aprine 5 mg tablet TAKE 1 TABLET BY MOUTH THREE TIMES A DAY NEEDED FOR MUSCLE SPASMS 03/18 completed Not Available Not Available Not Available Jolivette 0.35 mg tablet Take 1 tablet(s ) by mouth daily as directed . 09/06 completed Jolivett e 0.35mg Tablet Allow Substitu tion: True Refill Denied: No Not Available Not Available Not Available metformin ER 1,000 mg tablet,ex tended release 24hr (osmotic) 1 po BID 11/20 completed Metformi n HCl 500mg Tablet RxNorm: 568675 Allow Substitu tion: True Refill Denied: No Refill DateOccu rred: 07/23/19 15 Not Available Not Available Not Available sumatript an PRN 03/18 completed Sumatrip freeman 50mg Tablet RxNorm: 198051 Allow Substitu tion: True Refill Denied: No Refill DateOccu rred: 07/31/19 16 Not Available Not Available Not Available acyclovir 1 p.o. qd 07/22 completed Acyclovi r 400mg Tablet RxNorm: 597077 Allow Substitu tion: True Refill Denied: No Not Available Not Available Not Available Zyprexa Take 1 tablet(s ) by mouth daily 2014 active Zyprexa 20mg Tablet RxNorm: 034483 Allow Substitu tion: True Refill Denied: No Refill DateOccu rred: 07/23/19 15 Not Available Not Available Not Available Prozac Take 2 capsule( s) by mouth qam 2014 active Prozac 40mg Capsules RxNorm: 496357 Allow Substitu tion: True Refill Denied: No Refill DateOccu rred: 07/23/19 15 Not Available Not Available Not Available Lamictal Take 1 tablet(s ) by mouth daily 2014 active Lamictal 200mg Tablet RxNorm: 076646 Allow Substitu tion: True Refill Denied: No Refill DateOccu rred: 07/23/19 15 Not Available Not Available Not Available Xanax Take 1 tablet(s ) by mouth tid prn 12/26 completed Xanax 2mg Tablet RxNorm: 897763 Allow Substitu tion: True Refill Denied: No Refill DateOccu rred: 07/23/19 15 Edited by: Migdalia Nix) on 07/31/19 16 Stopped by: cr pedraza(Migdalia Lopez) on Not Available Not Available Not Available Cedric 07/08 completed Sarah Beth muñiz 0.35mg Tablet Allow Substitu tion: True Refill Denied: No Not Available Not Available Not Available Xarelto 10 mg tablet TAKE 1 TABLET BY MOUTH EVERY DAY 11/20 completed Not Available Not Available Not Available Vitals Date Recorded Body height Provider Name an d Address Organization Details Last Updated DateTime 03/18/2022 175.26 cm [facility] [employer] 03/18/2022 13:38:47 Date Recorded Body mass index (BMI) Body weight Provider Name and Address Organization Details Last Updated DateTime 03/18/2022 28.2 kg/m2 56588.86 g [facility] [employer] [place] [employer] 03/18/2022 13:38:52 Date Recorded Body height Provider Name an d Address Organization Details Last Updated DateTime 11/21/2023 172.72 cm [facility] [employer] [employer] 11/21/2023 15:12:35 Date Recorded Body mass index (BMI) Provider Name and Address Organization Details Last Updated DateTime 11/21/2023 24.3 kg/m2 [facility] 11/21/2023 15:12:41 Date Recorded Body weight Provider Name an d Address Organization Details Last Updated DateTime 11/21/2023 34433.78 g [facility]a [place] [facility] 11/21/2023 15:12:42 Date Recorded Body temperature Provider Name a nd Address Organization Details Last Updated DateTime 11/21/2023 94.9 [degF] Pippa [place] [employer] [facility] 11/21/2023 15:12:49 Date Recorded Body height Provider Name an d Address Organization Details Last Updated DateTime 12/27/2023 172.72 cm [facility]alexx Lemons [facility] 12/27/2023 13:34:34 Date Recorded Body mass index (BMI) Body weight Provider Name and Address Organization Details Last Updated DateTime 12/27/2023 24.8 kg/m2 94786.84 g Isabel Lemons [facility] [employer] [employer] [facility] 12/27/2023 13:34:52 Date Recorded Systolic blood pressure Diastolic blood pressure Provider Name and Address Organization Details Last Updated DateTime 11/21/2023 104 mm[Hg] 64 mm[Hg] Pippa [facility] [facility] 11/21/2023 15:12:30 Date Recorded Systolic blood pressure Diastolic blood pressure Provider Name and Address Organization Details Last Updated DateTime 12/27/2023 110 mm[Hg] 70 mm[Hg] Isabelalexx Lemons [facility] [employer] 12/27/2023 13:34:43 Social History Question Answer Notes LastModified by Organizat ion Details LastModified Time Tobacco Smoking Status Never Smoker Isabel Lemons [facility] 03/18/2022 13:40:50 What Is Your Level Of Alcohol Consumption? Occasional [email or web address] Information not available 03/18/2022 How Many Times Per Week Do You Consume Alcohol? 1-2 Times Per Week [email or web address] Information not available 11/21/2023 Are You Blind Or Do You Have Difficulty Seeing? No [email or web address] Information not available 03/18/2022 Are You Deaf Or Do You Have Serious Difficulty Hearing? No [email or web address] Information not available 03/18/2022 What Type Of Diet Are You Following? REGULAR [email or web address] Information not available 03/18/2022 How Many Children Do You Have? 0 [email or web address] Information not available 11/21/2023 What Is Your Relationship Status? 30 Years [email or web address] Information not available 11/21/2023 Are You Sexually Active? Yes [email or web address] Information not available 03/18/2022 Do You Use Any Illicit Or Recreational Drugs? No [email or web address] Information not available 03/18/2022 Do You Or Have You Ever Used Any Other Forms Of Tobacco Or Nicotine? No [email or web address] Information not available 03/18/2022 Sex: Unknown Functional Status Question Answer Note LastModified by Organization D etails LastModified Time What is your exercise level? None [email or web address] Information not available 11/21/2023 Mental Status None recorded. Family History Relationship Description Onset Age of this Age Resolved Age Notes LastModified by Organization Details LastModified Time Father No current problems or disability [email or web address] Not available 03/09 13:40:19 Mother No current problems or disability [email or web address] Not available 03/09 13:40:19 Medical History Condition Response Other Cancer N High Blood Pressure N Colon Cancer N Cytomegalovirus N Hyperthyroidism N Breast Cancer N Herpes (HSV) N Blood Transfusion N MRSA N Lung Cancer N Hypothyroidism N Depression N Incontinence N Panic Attacks N Neurological Disorder N Deep Vein Thrombosis N Anxiety Disorder N Autoimmune disease N Arthritis N Tuberculosis/Positive PPD N Shingles N Polycystic Ovarian Syndrome N Cervical Cancer N Hematuria N Chlamydia N Varicosities N Stroke N Crohn's Disease N Seasonal allergies N Alzheimer's/Dementia N COPD/Emphysema N HPV/Genital Warts N Endometriosis N IBS (Irritable Bowel Syndrome) N History of Abnormal Pap N High Cholesterol N Liver Disease N Kidney Infection N Fibromyalgia N Ulcer N Kidney Disease N HIV N Gallbladder disease N Sickle Cell Disease/Trait N Von Willebrand disease N ADD/ADHD N Eating Disorder N Diabetes Mellitus (non-insulin dependent ) N Anemia N Ovarian Problems N Multiple Sclerosis N Gonorrhea N Frequent Urinary Tract infections N Osteopenia N Headaches/migraines N GERD (reflux) N Ovarian Cancer N Diabetes (insulin dependent) N Seizures/Epilepsy N Fibroids N Asthma N Heart Attack N Lupus N Endometrial Cancer N Rubella N Blood Clotting Disorder N Bipolar Disorder N Diabetes Mellitus (during ) N Ulcerative Colitis N Hepatitis N Heart Disease N Pulmonary Embolism N RPR N Chicken Pox N Osteoporosis N Gynecological History Statement/Question Response If Post Menopausal, Age at Menopause 49 Date of last HPV 03/19/2022 Date of Last Colonoscopy 05/09/2013 Date of Last Pap Smear 03/18/2022 Most Recent Mammogram 02/15/2023 Current Control Method Menopause Obstetrics History GPAL:G 0 P 0 0 0 0 Type Value Living 0 Total 0 Past Encounters Encounter ID Performer Location Encounter Start Date Encounter Closed Date Diagnosis/Indication Diagnosis SNOMED-CT Code Diagnosis ICD10 Code Diagnosis Note [id number] Safia Romano MD [address] [address] 03/18/2022 13:22:21 03/18/2022 14:06:05 Gynecologic examination 15383036 Z01.419 Screening for malignant neoplasm of cervix 113272472 Z12.4 Screening for malignant neoplasm of breast 398576265 Z12.39 [id number] Jesús Fagan MD [address] [address] 11/21/2023 14:07:05 11/21/2023 15:52:07 Menopausal symptom 03011923 N95.1 discussed any form of transderma l estrogen and prometrium 100mg daily orally or proogester one 50mg transderma lly daily or prometrium 200mg days 1-10 q 1 to 4th month or no progestron e and us in 6 months x 2 then yearly after unoppsed HRT aswell as possibly osphena and vagifem... .can do any combinatio n and will call [facility] pharmacy for any hormone regimen if desires to [facility] in [facility] for estrogen cream vaginally or E,P,and or Testostero ne cream combinatio n and we would use estriol only as a form of estrogen for least amt of stimulatio n to the breast if desiresFOL LOW-UP: Schedule follow-up appointmen ts on a p.r.n. basis. .Additiona l diagnosis detail: Menopausal symptoms Atrophic vaginitis 52665 000 N95.2 [id number] Safia Romano MD [facility] [address] [place] [address] 12/27/2023 13:12:53 12/27/2023 13:59:29 Gynecologic examination 23348713 Z01.419 Screening for malignant neoplasm of cervix 351722945 Z12.4 Screening for malignant neoplasm of breast 267630318 Z12.31 Depression screening 171 020675 Z13.31 refer to intake screening Health Concerns Section Related Observation LastModified by Organization Detai ls LastModified Time None Recorded Concern Status LastModified by Organization Details LastModified Time None Recorded Advance Directives Directive None Recorded Payers Encounter Date Sequence Insurance Name Policy Number Policy Dobson Covered Member ID Dobson Member ID Guarantor Name 03/18/2022 2 [place] Abby E Mert [id number] Abby Rudd Mert 03/18/2022 2 [facility] [employer] [id number] Abby Rudd Mert 11/21/2023 2 [place] Abby E Mert [id number] Abby Rudd Mert 12/27/2023 2 [place] Abby E Mert [id number] Abby Rudd Mert Notes Date Note Type Note Provider Name and Address Organization Details Recorded Time 03/18/2022 text/html Annual Cytology Technologist Post-MenopausalRep orted bypatient.Menopaus al Symptoms:no menopausal symptoms Vaginal Bleeding:history of menopause having occurred Urinary Symptoms:no hematuria; no incontinence; no nocturia; no urinary frequency Vulva:no genital lesion; no vulvar atrophy Vagina:normal vaginal discharge; no vaginal atrophy Breast:no breast lump; no nipple discharge; no breast pain Sexual Complaints:no sexual complaints Psychological Symptoms:no depression; no anxiety Preventive Measures:encourage self breast examination; encourage regular exercise; mammogram performed within the past year; history of recent colonoscopy Sri here for annual well women visit Safia Romano MD [address] [facility], [place], [address], [facility] [place] 03/18/2022 13:55:06 11/21/2023 text/html Annual GYNReport ed bypatient.Menstrua l cycle:Normal menses Urinary symptoms:No hematuria; No incontinence Vulva:No genital lesion Vagina:Normal vaginal discharge Breast:No breast pain; No breast lump; No nipple discharge Sexual complaints:No sexual complaints; No pain during intercourse; Normal libido Menopausal Symptoms:No menopausal symptoms; Normal vaginal lubrication Psychological symptoms:No depression; No anxiety; No PMDD hot flashes in the past and had been on HRT Jesús Fagan MD [facility] [place], [address], [facility] [place] 11/21/2023 15:50:37 12/27/2023 text/html Annual Cytology Technologist Post-MenopausalRep orted bypatient.Menopaus al Symptoms:hot flashes Vaginal Bleeding:history of menopause having occurred Urinary Symptoms:no hematuria; no incontinence; no nocturia; no urinary frequency Vulva:no genital lesion Vagina:normal vaginal discharge Breast:no breast lump; no nipple discharge; no breast pain Sexual Complaints:no sexual complaints Preventive Measures:encourage self breast examination; encourage regular exercise; needs to schedule mammogram; needs to schedule colonoscopy Sri 58 y/o here for annual well women visit, she is post menopausal, Last WWE 11/20/2022, Last pap 03/18/2022, Last mammogram 02/15/2023, Last colonoscopy 2013 Safia Romano MD [address] [place] [address], [place], [address], [facility] 12/27/2023 13:58:56 OBGyn Episode No OBEpisode recorded.
--- OUTSIDE RECORDS SUMMARY | 2024-05-31 18:41 | XMS_ITS | Clinical Summary ---
Author Organization [facility] Care Team Providers Care Sas Programmer Remote Name Role Phone Unavailable Primary Care Provider Unavailabl e Social History Tobacco Use Types Packs/Day Years Used Date Smoking Tobacco: Never Assessed Comments Unknown Sex and Gender Information Value Date Recorded Sex Assigned at Not on file Legal Sex Female 8:41 PM CDT Gender Identity Not on file Sexual Orientation Not on file Plan of Treatment Health Maintenance Due Date Last Done Comments Hepatitis C Virus (HCV) Screening 1965 TdaP Immunization 1965 Pap Smear 01/21/1985 Cervical Cancer Screening (CCS) 01/21/1994 HPV/Cotest 01/21/1994 Colonoscopy 01/21/2009 Colorectal Cancer Screening 01/21/2009 Cologuard 01/21/2014 Immunochemical Fecal Occult Blood 01/21/2014 Mammogram 01/21/2014 Pneumococcal Immunization (5 0+ years) (1 of 1 - PCV) 01/21/2014 Zoster Immunization (1 of 2) 01/21/2014 Influenza Immunization (#1) 2024 SARS-COV-2 Immunization ( - 2023-25 season) 2024 Respiratory Syncytial Virus (RSV) Immunization (Adult) (1 - 1-dose 75+ series) 01/21/2039 Hepatitis B Immunization Aged Out No longer eligible based on patient's age to complete this topic Meningococcal Immunization (ACWY) Aged Out No longer eligible based on patient's age to complete this topic Pneumococcal Immunization Combined Aged Out No longer eligible based on patient's age to complete this topic Rotavirus Immunization Aged Out No lo nger eligible based on patient's age to complete this topic
--- OUTSIDE RECORDS SUMMARY | 2024-05-31 18:41 | XMS_ITS | Clinical Summary ---
Author Organization [facility] Address [facility] [place] [address] [place] [address] Care Team Providers Care Theatre Arts Professor Name Role Phone Aleshia Winston MD Primary Care Provider Allergies Active Allergy Reactions Criticality Noted Date Comments Clindamycin Cough,Hives,Itching,Rash Low 01/26/2016 Polysorbate Rash Medium 11/23/2010 Quetiapine Unknown 10/03/2014 Sertraline Unknown 10/03/2014 Ziprasidone Unknown 10/03/2014 Medications SUMATRIPTAN 100 MG tabletIndications: Migraine TAKE 1 TABLET AT ONSET OF MIGRAINE HEADACHE. MAY REPEAT IN 2 HOURS IF NEEDED. 9 tablet 3 04/13/20 18 Active cetirizine-pseudoe phedrine ER (ZYRTEC-D ALLERGY & CONGESTION) 5mg-120mg 12 hr tablet Take 1 tablet by mouth 2 (two) times daily. 10/06/19 18 Active lamoTRIgine 200 MG tablet TAKE 1 TABLET BY MOUTH AT EVERY BEDTIME 1 01/26/20 18 Active fluoxetine 40 MG capsule Take 40 mg by mouth daily. 1 01/26/20 18 Active metFORMIN 500 MG tablet Take 500 mg by mouth 2 (two) times daily. 1 12/15/19 18 Active OLANZapine 20 MG tablet TAKE 1 TABLET BY MOUTH AT EVERY BEDTIME 1 01/14/20 18 Active ALPRAZolam 1 MG tablet Take 1 tablet by mouth 3 (three) times daily as needed. 5 06/07/19 19 Active meloxicam 7.5 MG tablet Take 7.5 mg by mouth daily. Tuesday Active meloxicam 7.5 MG tabletIndications: Hip pain, right,Hip pain, acute, left TAKE 1 TABLET BY MOUTH ON TUESDAY, TUESDAY AND TUESDAY 20 tablet 3 08/29/19 19 Active azelastine (AZELASTINE) 0.1 % nasal sprayIndications:N on-seasonal allergic rhinitis, unspecified trigger 1 spray by Nasal route 2 (two) times daily. Use in each nostril as directed 30 mL 3 09/21/19 19 Active gabapentin 300 MG capsuleIndications :Bilateral groin pain Take one capsule po bid 60 capsule 1 09/28/19 19 Active atorvastatin 40 MG tabletIndications: Mixed hyperlipidemia Take 1 tablet (40 mg total) by mouth nightly at bedtime. 90 tablet 1 10/15/19 20 Active HYDROcodone-acetam inophen (NORCO) 5-325 MG tabletIndications: Acute Pain < 3 Day Supply Take 1 tablet by mouth every 6 (six) hours as needed (pain not relieved by naproxen). Indications: Acute Pain < 3 Day Supply 10 tablet 04/14/20 24 Active naloxone (NARCAN) 4 MG/0.1ML nasal spray 1 spray by Nasal route as needed for Opioid reversal. may repeat every 2 to 3 minutes in alternating nostrils until medical assistance becomes available 1 each 04/14/20 24 025 Active naproxen (NAPROSYN) 500 MG tablet Take 1 tablet (500 mg total) by mouth 2 (two) times daily with meals. 20 tablet 04/14/20 24 Active Active Problems Problem Noted Date Diagnosed Date Primary localized osteoarthritis of left hip Primary osteoarthritis of right hip 05/25/2018 Left hip pain 05/18/2018 Myalgia, other site 05/04/2018 Bilateral groin pain 05/04/2018 CKD (chronic kidney disease) stage 3, GFR 30-59 ml/min ([facility]) 02/27/2018 Hip pain, right 11/30/2017 Serum creatinine raised 09/21/2017 Cellulitis, gluteal, left 09/12/2017 Costochondritis 10/09/2015 Dysuria 10/09/2015 Bipolar disorder ([facility]) 10/03/2014 Contact dermatitis 10/03/2014 Hyperlipidemia 01/11/2012 Encounters Date Type Department Care Team Description 04/13/2024 9:51 PM MARKETING CAMPAIGN ANALYST - 04/14/2024 1:49 AM MARKETING CAMPAIGN ANALYST Emergency [facility] [place] [address] Demetrius Todd MD,PHD Flank Pain Discharge Disposition: Home or Self Care (Routine Discharge) 04/13/2024 Travel 03/19/2024 5:15 PM MARKETING CAMPAIGN ANALYST - 03/19/2024 10:15 PM MARKETING CAMPAIGN ANALYST Emergency [facility] [place] [address] Cindy John PA Abdominal Pain Discharge Disposition: Home or Self Care (Routine Discharge) 03/19/2024 Travel from Last 3 Months Immunizations Name Administration Dates Next Due Flucelvax 6 Months+ (Prefilled Syringe) 01/30/20 18,02/17/2017 Influenza (Generic) 02/06/2017,03/23/2015,2012 Influenza Adult (Generic) 02/06/2017 Tdap (Generic) 12/12/2016 Family History Medical History Relation Comments Diabetes Brother Relation Status Comments Brother Social History Tobacco Use Types Packs/Day Years Used Date Smoking Tobacco: Never Smokeless Tobacco: Never Alcohol Use Standard Drinks/Week Comments Yes 0 (1 standard drink = 0.6 oz pur e alcohol) rare Comments No Sex and Gender Information Value Date Recorded Sex Assigned at Not on file Legal Sex Female 5:20 PM CDT Gender Identity Not on file Sexual Orientation Not on file Last Filed Vital Signs Vital Sign Reading Time Taken Comments Blood Pressure 139/98 04/14/2024 1:46 AM MARKETING CAMPAIGN ANALYST Pulse 89 04/14/2024 1:46 AM MARKETING CAMPAIGN ANALYST Temperature 36.8 ??C (98.2 ??F) 04/13/2024 9:27 PM CS T Respiratory Rate 16 04/13/2024 9:27 PM MARKETING CAMPAIGN ANALYST Oxygen Saturation 94% 04/14/2024 1:46 AM MARKETING CAMPAIGN ANALYST Inhaled Oxygen Concentration - - Weight 74.4 kg (164 lb) 04/13/2024 9:27 PM MARKETING CAMPAIGN ANALYST Height 172.7 cm (5' 8 ) 04/13/2024 9:27 PM MARKETING CAMPAIGN ANALYST Body Mass Index 24.94 04/13/2024 9:27 PM MARKETING CAMPAIGN ANALYST Plan of Treatment Health Maintenance Due Date Last Done Comments Cervical Cancer Screening Pap Smear (Age 30 to 64) Every 3 Years 1964 Annual Physical 01/21/1967 Hepatitis C 01/21/1982 Cervical Cancer Screening Pap with HPV Testing (Age 30 to 64) Every 5 Years 01/21/1994 Cervical Cancer Screening with HPV 01/21/1994 Zoster Vaccines (1 of 2) 01/21/2014 COVID-19 Vaccine ( - season) 2024 Influenza Adult (#1) 2024 01/08/2021, 01/18/2020, 01/29/2018, Additional history exists Mammogram Screening 02/19/2026 02/20/2024, 02/15/2023, 11/13/2021, Additional history exists DTaP, Tdap and Td Vaccines (2 - Td or Tdap) 12/12/2026 12/12/2016 Colorectal Cancer Screening Colonoscopy (10 Years) 10/18/2027 10/17/2017, RSV Immunization or 60+ Years (1 - 1-dose 75+ series) 01/21/2039 Meningococcal Vaccine Aged Out No terry abelino eligible based on patient's age to complete this topic Pneumococcal Vaccine: Pediatrics (0 to 5 Years) and At-Risk Patients (6 to 64 Years) Aged Out No longer eligible based on patient's age to complete this topic RSV Immunizations Under 20 Months Aged Out No longer eligible based on patient's age to complete this topic Procedures Procedure Name Priority Date/Time Associated Diagnosis Comments COMPREHENSIVE METABOLIC PANEL STAT 04/13/2024 10:24 PM MARKETING CAMPAIGN ANALYST CBC W/DIFF AUTOMATED STAT 04/13/2024 10:24 [address]ING [address]PAIGN [address] ABD+PEL KIDNEY STONE STAT 04/13/2024 10:23 PM MARKETING CAMPAIGN ANALYST HC URINALYSIS AUTO W/O MICRO STAT 04/13/2024 10:23 PM MARKETING CAMPAIGN ANALYST XR ABD KUB STAT 03/19/2024 9:25 PM MARKETING CAMPAIGN ANALYST URINE BACTERIA CULTURE Routine 8:00 PM MARKETING CAMPAIGN ANALYST HC URINALYSIS AUTO W/O MICRO STAT 03/19/2024 8:00 PM MARK[address]ING CAMPAIGN A[address]LYST CT ABD+PEL W CON STAT 03/19/2024 7:04 PM MARKETING CAMPAIGN ANALYST LIPASE STAT 03/19/2024 5:23 PM MARKETING CAMPAIGN ANALYST COMPREHENSIVE METABOLIC PANEL STAT 03/19/2024 5:23 PM MARKETING CAMPAIGN ANALYST CBC W/DIFF AUTOMATED STAT 03/19/2024 5:23 PM MARKETING CAMPAIGN ANALYST COLONOSCOPY GENERIC (SCAN ORDER) Routine 10/17/2017 MAMMOGRAM GENERIC (SCAN ORDER) Routine 08/17/2017 from Last 3 Months or Most Recently Relevant to Health Maintenance Results * (ABNORMAL) COMPREHENSIVE METABOLIC PANEL (04/13/2024 10:24 PM MARKETING CAMPAIGN ANALYST) Only the most recent of2 resultswithin the time period is included. GLUCOSE 97 70 - 99 MG/DL 04/13/2024 11:02 PM MARKETING CAMPAIGN ANALYST [facility] BUN 15 7 - 18 MG/DL 04/13/2024 11:02 PM MARKETING CAMPAIGN ANALYST [facility] CREATININE S/P/B 0.92 0.55 - 1.02 MG/DL 04/13/2024 11:02 PM MARKETING CAMPAIGN ANALYST [facility] SODIUM S/P/B 138 136 - 145 MMOL/L 04/13/2024 11:02 PM MARKETING CAMPAIGN ANALYST [facility] POTASSIUM S/P/B 3.7 3.5 - 5.1 MMOL/L 04/13/2024 11:02 PM MARKETING CAMPAIGN ANALYST [facility] CHLORIDE S/P/B 106 97 - 115 MMOL/L 04/13/2024 11:02 PM MARKETING CAMPAIGN ANALYST [facility] CO2 28.4 21 - 32 MMOL/L 04/13/2024 11:02 PM MARKETING CAMPAIGN ANALYST [facility] CALCIUM S/P/B 9.4 8.5 - 10.1 MG/DL 04/13/2024 11:02 PM [facility] BILIRUBIN TOTAL S/P/B 1.3(H) 0.2 - 1.2 MG/DL 04/13/2024 11:02 PM [facility] Comment: THIS ASSAY IS NOT RECOMMENDED FOR PATIENTS UNDERGOING TREATMENT WITH ELTROMBOPAG DUE TO THE POTENTIAL FOR FALSELY ELEVATED RESULTS. TOTAL PROTEIN S/P/B 7.4 6.4 - 8.2 G/DL 04/13/2024 11:02 PM [facility] ALBUMIN S/P/B 4.1 3.4 - 5.0 G/DL 04/13/2024 11:02 PM [facility] AST 20 15 - 37 U/L 04/13/2024 11:02 PM [facility] ALT 23 14 - 55 U/L 04/13/2024 11:02 PM [facility] ALKALINE PHOSPHATASE S/P/B 66 50 - 136 U/L 04/13/2024 11:02 PM [facility] ANION GAP 3.6 2 - 10 MMOL/L 04/13/2024 11:02 PM [facility] BUN CREATININE RATIO 16.3 6 - 26 04/13/2024 11:02 PM [facility] A/G RATIO 1.2 1.0 - 2.0 RATIO 04/13/2024 11:02 PM [facility] GFR ESTIMATE 71(L) >90 ML/MIN/1.7 3 M2 04/13/2024 11:02 PM [facility] Comment: NOTE: eGFR is not calculated for patients <18 years of age or gender unknown. This is an estimated GFR calculation using the new CKD EPI creatinine equation without race and so does not require a correction factor for race. This estimated GFR should not be used for calculating drug doses. 04/13/2024 10:2 4 PM MARKETING CAMPAIGN ANALYST us Demetrius Todd MD,PHD LABORATORY Final Resu lt [facility] [address] [place] [address], [place] [phone] * (ABNORMAL) CBC W/DIFF AUTOMATED (04/13/2024 10:24 PM MARKETING CAMPAIGN ANALYST) Only the most recent of2 resultswithin the time period is included. WBC 14.64(H) 4.5 - 11.0 x10'3/uL 04/13/2024 10:46 PM MARKETING CAMPAIGN ANALYST [facility] RBC 4.64 4.20 - 5.40 x10'6/uL 04/13/2024 10:46 PM MARKETING CAMPAIGN ANALYST [facility] HGB 14.3 12.0 - 16.0 G/DL 04/13/2024 10:46 PM MARKETING CAMPAIGN ANALYST [facility] HCT 43.7 38.0 - 48.0 % 04/13/2024 10:46 PM MARKETING CAMPAIGN ANALYST [facility] MCV 94.2 81.0 - 99.0 FL 04/13/2024 10:46 PM MARKETING CAMPAIGN ANALYST [facility] MCH 30.8 27.0 - 31.0 PG 04/13/2024 10:46 PM MARKETING CAMPAIGN ANALYST [facility] MCHC 32.7 32.0 - 36.0 G/DL 04/13/2024 10:46 PM MARKETING CAMPAIGN ANALYST [facility] RDW 13.2 11.5 - 14.5 % 04/13/2024 10:46 PM MARKETING CAMPAIGN ANALYST [facility] PLT 284 130 - 400 x10'3/uL 04/13/2024 10:46 PM MARKETING CAMPAIGN ANALYST [facility] MPV 10.6 9.3 - 12.2 FL 04/13/2024 10:46 PM MARKETING CAMPAIGN ANALYST [facility] DIFFERENTIAL TYPE AUTOMATED DIFFERENTIAL 04/13/2024 10:46 PM MARKETING CAMPAIGN ANALYST [facility] NEUTROPHILS % 72.3 % 04/13/2024 10:46 PM MARKETING CAMPAIGN ANALYST [facility] LYMPHOCYTES % 19.8 % 04/13/2024 10:46 PM [facility] MONOCYTES % 5.9 % 04/13/2024 10:46 PM MARKETING CAMPAIGN ANALYST [facility] EOSINOPHILS 1.0 % 04/13/2024 10:46 PM [facility] BASOPHILS 0.6 % 04/13/2024 10:46 PM [facility] IMMATURE GRANS % 0.4 % 04/13/20 24 10:46 PM [facility] ABS. NEUTROPHILS 10.58(H) 1.80 - 7.70 x10'3/uL 04/13/2024 10:46 PM [facility] ABS. LYMPHOCYTES 2.90 1.00 - 4.80 x10'3/uL 04/13/2024 10:46 PM MARKETING CAMPAIGN ANALYST [facility] ABS. MONOCYTES 0.87(H) 0.24 - 0.86 x10'3/uL 04/13/2024 10:46 PM [facility] ABS. EOSINOPHILS 0.14 0.04 - 0.36 x10'3/uL 04/13/2024 10:46 PM [facility] ABS. BASOPHILS 0.09(H) 0.01 - 0.08 x10'3/uL 04/13/2024 10:46 PM [facility] ABS. IMMATURE GRANULOCYTES 0.06 0.00 - 0.49 x10'3/uL 04/13/2024 10:46 PM [facility] 04/13/2024 10:2 4 PM MARKETING CAMPAIGN ANALYST us Demetrius Todd MD,PHD LABORATORY Final Resu lt [facility] [address] [place] [address], * CT ABD+PEL KIDNEY STONE (04/13/2024 10:23 PM MARKETING CAMPAIGN ANALYST) Anatomical Region Laterality Modality Abdomen Computed Tomogra phy 04/13/2024 11:1 4 PM MARKETING CAMPAIGN ANALYST Impressions 04/13/2024 11:23 PM MARKETING CAMPAIGN ANALYST IMPRESSION: Obstructing 6 mm calculus at the right renal pelvis resulting in mild calyectasis, no interval transit when compared to prior exam of 03/19/2024. ??Additional bilateral sub-9 mm nonobstructing renal calculi. Referred By: ?? Interpreted By: Inge Guzman MD, 04/13/2024 11:14 PM Narrative 04/13/2024 11:23 PM MARKETING CAMPAIGN ANALYST [facility] [address] [place], [place] [address] EXAMINATION: CT Abdomen/Pelvis without INDICATION: Patient complains of right flank pain. COMPARISON: CT abdomen/pelvis 03/19/2024. TECHNIQUE: Axial images were obtained through the abdomen and pelvis without intravenous and oral contrast. Additional images were reconstructed in the coronal and sagittal planes. DOSE OPTIMIZATION: This facility uses dose optimization techniques as appropriate to perform exams, including at least one of the following techniques: 1. Automated exposure control. 2. Adjustment of the mA and/or kV according to patient size (this includes techniques or standardized protocols for targeted exams where dose is matched to the indication/reason for exam, i.e. extremities or head). 3. Use of iterative reconstructive technique. FINDINGS: Lung Bases: Bibasilar atelectatic changes. ??Coronary atherosclerosis. Liver: Within normal limits given noncontrast technique. Gallbladder: Normal. Pancreas: Within normal limits given noncontrast technique. Spleen: Hypoattenuating and slightly exophytic splenic lesion is again noted, indeterminate. Adrenal Glands: Normal. Kidneys: Obstructing 6 mm calculus at the right renal pelvis resulting in mild calyectasis. ??Additional bilateral sub-9 mm nonobstructing renal calculi. Abdominal Wall: Normal. Stomach: Normal. Large and Small Bowel: No abnormally distended loops of bowel to suggest bowel obstruction. ??Overall mild-moderate stool burden. Appendix: Normal. Mesentery: Normal. Free Fluid: None. Lymph Nodes: No adenopathy by imaging size criteria. Vasculature: Aortobiiliac atherosclerosis without aneurysmal dilatation. Urinary Bladder: Normal. Uterus and Adnexa: Beam hardening artifact from hip prostheses limits evaluation. ??No gross abnormality. Visualized Osseous Structures: Prior bilateral total hip arthroplasties with hardware producing beam hardening artifact limiting evaluation of adjacent structures. ??Vertebral body hemangiomas at T10 and T12. Procedure Note Inge Guzman MD - 04/13/[address] [address] EXAMINATION: CT Abdomen/Pelvis without INDICATION: Patient complains of right flank pain. COMPARISON: CT abdomen/pelvis 03/19/2024. TECHNIQUE: Axial images were obtained through the abdomen and pelviswithout intravenous and oral contrast. Additional images werereconstructed in the coronal and sagittal planes. DOSE OPTIMIZATION: This facility uses dose optimization techniques asappropriate to perform exams, including at least one of the followingtechniques: 1. Automated exposure control. 2. Adjustment of the mA and/or kV according to patient size (this includestechniques or standardized protocols for targeted exams where dose ismatched to the indication/reason for exam, i.e. extremities or head). 3. Use of iterative reconstructive technique. FINDINGS: Lung Bases: Bibasilar atelectatic changes. Coronary atherosclerosis. Liver: Within normal limits given noncontrast technique. Gallbladder: Normal. Pancreas: Within normal limits given noncontrast technique. Spleen: Hypoattenuating and slightly exophytic splenic lesion is againnoted, indeterminate. Adrenal Glands: Normal. Kidneys: Obstructing 6 mm calculus at the right renal pelvis resulting inmild calyectasis. Additional bilateral sub-9 mm nonobstructing renalcalculi. Abdominal Wall: Normal. Stomach: Normal. Large and Small Bowel: No abnormally distended loops of bowel to suggestbowel obstruction. Overall mild-moderate stool burden. Appendix: Normal. Mesentery: Normal. Free Fluid: None. Lymph Nodes: No adenopathy by imaging size criteria. Vasculature: Aortobiiliac atherosclerosis without aneurysmal dilatation. Urinary Bladder: Normal. Uterus and Adnexa: Beam hardening artifact from hip prostheses limitsevaluation. No gross abnormality. Visualized Osseous Structures: Prior bilateral total hip arthroplastieswith hardware producing beam hardening artifact limiting evaluation ofadjacent structures. Vertebral body hemangiomas at T10 and T12. IMPRESSION: Obstructing 6 mm calculus at the right renal pelvis resultingin mild calyectasis, no interval transit when compared to prior exam of03/19/2024. Additional bilateral sub-9 mm nonobstructing renal calculi. Referred By: Interpreted By: Inge Guzman MD, 04/13/2024 11:14 PM us Demetrius Todd MD,PHD CT Final Resu lt * (ABNORMAL) URINALYSIS (04/13/2024 10:23 PM MARKETING CAMPAIGN ANALYST) Only the most recent of2 resultswithin the time period is included. SPECIMEN TYPE URINE CLEAN CATCH 04/13/2024 10:23 PM MARKETING CAMPAIGN ANALYST [facility] COLOR (U) LIGHT YELLOW 04/13/2024 10:48 PM [facility] TRANSPARENCY CLEAR 04/13/2024 10:48 PM [facility] SPECIFIC GRAVITY (U) 1.013 1.001 - 1.030 04/13/2024 10:48 PM [facility] U PH 7.0 5.0 - 9.0 04/13/2024 10:48 PM [facility] LEUKOCYTES (U) 250(A) NEGATIVE 04/13/2024 10:48 PM [facility] NITRITES NEGATIVE NEGATIVE 04/13/2024 10:48 PM MARKETING CAMPAIGN ANALYST [facility] PROTEIN RANDOM (U) NEGATIVE <30 MG/DL 04/13/2024 10:48 PM MARKETING CAMPAIGN ANALYST [facility] GLUCOSE (U) NORMAL NORMAL MG/DL 04/13/2024 10:48 PM MARKETING CAMPAIGN ANALYST [facility] KETONES MG/DL (U) NEGATIVE NEGATIVE MG/DL 04/13/2024 10:48 PM MARKETING CAMPAIGN ANALYST [facility] UROBILINOGEN NORMAL NORMAL MG/DL 04/13/2024 10:48 PM MARKETING CAMPAIGN ANALYST [facility] BILIRUBIN (U) NEGATIVE NEGATIVE MG/DL 04/13/2024 10:48 PM MARKETING CAMPAIGN ANALYST [facility] BLOOD (U) TRACE(A) NEGATIVE 04/13/2024 10:48 PM MARKETING CAMPAIGN ANALYST [facility] MUCUS RARE /LPF 04/13/2024 10:48 PM MARKETING CAMPAIGN ANALYST [facility] WBC/HPF 19(H) <6 /HPF 04/13/2024 10:48 PM MARKETING CAMPAIGN ANALYST [facility] RBC/HPF 10(H) <6 /HPF 04/13/2024 10:48 PM MARKETING CAMPAIGN ANALYST [facility] SQUAMOUS EPITHELIALS RARE /HPF 04/13/2024 10:48 PM MARKETING CAMPAIGN ANALYST [facility] URINE SPECIMEN OBTAINED BY CLEAN CATCH PROCEDURE / Unknown 04/13/2024 10:23 PM MARKETING CAMPAIGN ANALYST us Demetrius Todd MD,PHD URINE ORDERABLES Final Res ult [facility] [address] [place] [address], [place] [phone] * XR ABD KUB (03/19/2024 9:25 PM MARKETING CAMPAIGN ANALYST) Anatomical Region Laterality Modality Abdomen Radiographic Angelica ging 03/19/2024 9:45 PM MARKETING CAMPAIGN ANALYST Impressions 03/19/2024 9:47 PM MARKETING CAMPAIGN ANALYST IMPRESSION: Negative for hydronephrosis. Referred By: ?? Interpreted By: Thom Bunch MD, 03/19/2024 9:45 PM Narrative 03/19/2024 9:47 PM MARKETING CAMPAIGN ANALYST [address] [address] KUB abdomen single view INDICATION: Abdominal pain. COMPARISON: Abdomen CT performed today, March 19, 2024. TECHNIQUE: Single AP abdomen view. FINDINGS: Contrast is seen throughout the urinary tract following the CT study. ??This film does not show any evidence of hydronephrosis, despite the right renal pelvis calculus shown on the CT study. ??Calculi are not visible due to the presence of the contrast material. ??There is mild bladder trabeculation. ??Abdominal bowel gas pattern is unremarkable. ??Bilateral hip replacements noted. Procedure Note Thom Bunch MD - 03/19/[address] [address] KUB abdomen single view INDICATION: Abdominal pain. COMPARISON: Abdomen CT performed today, March 19, 2024. TECHNIQUE: Single AP abdomen view. FINDINGS: Contrast is seen throughout the urinary tract following the CTstudy. This film does not show any evidence of hydronephrosis, despitethe right renal pelvis calculus shown on the CT study. Calculi are notvisible due to the presence of the contrast material. There is mildbladder trabeculation. Abdominal bowel gas pattern is unremarkable.Bilateral hip replacements noted. IMPRESSION: Negative for hydronephrosis. Referred By: Interpreted By: Thom Bunch MD, 03/19/2024 9:45 PM us [facility] Final Result * CULTURE URINE (03/19/2024 8:00 PM MARKETING CAMPAIGN ANALYST) SPEC DESCRIPTION URINE CLEAN CATCH 03/19/2024 9:16 PM MARKETING CAMPAIGN ANALYST [facility] SPECIAL REQUESTS NO SPECIAL REQUEST 03/19/2024 9:16 PM MARKETING CAMPAIGN ANALYST [facility] CULTURE RESULT POLYMICROBIAL GROWTH CONSISTENT WITH NORMAL GENITAL ARNEL. ?? SUSCEPTIBILITIES NOT ROUTINELY PERFORMED. 03/21/2024 6:55 AM MARKETING CAMPAIGN ANALYST [facility] URINE SPECIMEN OBTAINED BY CLEAN CATCH PROCEDURE / Unknown 03/19/2024 8:00 PM MARKETING CAMPAIGN ANALYST 03/19/2024 10:16 PM MARKETING CAMPAIGN ANALYST us [facility] - GENERAL ORDERAB LES Final Result [facility] [address] [place] [address], * CT ABD+PEL W IV CON ONLY (03/19/2024 7:04 PM MARKETING CAMPAIGN ANALYST) Anatomical Region Laterality Modality Abdomen Computed Tomogra phy 03/19/2024 7:20 PM MARKETING CAMPAIGN ANALYST Impressions 03/19/2024 7:29 PM MARKETING CAMPAIGN ANALYST IMPRESSION: ?? 1. ??No CT evidence of bowel obstruction or acute appendicitis. 2. ??Mild right hydronephrosis, likely secondary to partially obstructing 6 mm renal pelvic stone. Complete evaluation of the distal right ureteral is limited due to streak artifact from the hip arthroplasty hardware. 3. ??Bilateral nonobstructing renal stones measuring up to 7 mm. Ordered By: CINDY JOHN Interpreted By: Dex Mary MD, 03/19/2024 7:20 PM Narrative 03/19/2024 7:29 PM MARKETING CAMPAIGN ANALYST [facility] [address] [place], [place] [address] PROCEDURE: ??CT ABD+PEL W CON HISTORY: ??Right upper quadrant and right lower quadrant pain. TECHNIQUE: ??Helical CT of the abdomen and pelvis was performed using non-ionic intravenous contrast. No oral contrast was administered. A dose lowering technique was used for this procedure, which may include, but is not limited to, dose reduction technique, automated exposure control, the use of iterative reconstruction, and ALARA (As Low As Reasonably Achievable) / Image Gently techniques.. ?? COMPARISON: ??None. FINDINGS CT ABDOMEN/PELVIS: Lower thorax: ??There is subsegmental atelectasis in the lower lobes. The heart is normal in size. Liver: The liver is normal in size. There is no intrahepatic mass. Biliary tree: The gallbladder is present. There is no biliary ductal dilatation. Spleen: The spleen is normal in size. There is a nonspecific 2.1 cm hypodense posterior splenic lesion (series 2, image 29) which represent a splenic hemangioma. Pancreas: ??The pancreas is normal in size and enhances homogenously. Adrenal glands: ??Unremarkable. Kidneys: ??There is mild right hydronephrosis with a 6 mm right renal pelvic stone. Multiple bilateral nonobstructing renal stones measuring up to 7 mm PET there is no left hydronephrosis Small low density foci in the kidneys are too small to characterize. There is bilateral renal cortical atrophy. Lymph nodes: Abdomen: There is no abdominal adenopathy. Pelvis: There is no pelvic adenopathy. Vasculature: ??There is no abdominal aortic aneurysm. Atherosclerotic calcification is seen. Peritoneum/mesentery/omentum: ??There is no free fluid or free air. GI tract: ??There is no bowel obstruction. The appendix is normal. There is no abnormal bowel wall thickening to suggest acute inflammation. The rectosigmoid colon is underdistended. Pelvic urogenital structures:The bladder is grossly unremarkable within limitation of streak artifact from the hip arthroplasty hardware.. ??The uterus is present. There is no adnexal mass within limitation of streak artifact from the hip arthroplasty hardware.. Body wall: ??There are degenerative changes in the spine. No aggressive osseous lesions identified. Partially imaged bilateral imaged hip arthroplasty hardware. T10 and T12 vertebral body hemangiomas. Small fat-containing paraumbilical hernia. Hunter: (S/I) = series number / image number Procedure Note Dex Mary MD - 03/19/2024 [facility] [address] [place], [place] [address] PROCEDURE: CT ABD+PEL W CON HISTORY: Right upper quadrant and right lower quadrant pain. TECHNIQUE: Helical CT of the abdomen and pelvis was performed usingnon-ionic intravenous contrast. No oral contrast was administered. A dose lowering technique was used for this procedure, which may include,but is not limited to, dose reduction technique, automated exposurecontrol, the use of iterative reconstruction, and ALARA (As Low AsReasonably Achievable) / Image Gently techniques.. COMPARISON: None. FINDINGS CT ABDOMEN/PELVIS: Lower thorax: There is subsegmental atelectasis in the lower lobes. Theheart is normal in size. Liver: The liver is normal in size. There is no intrahepatic mass. Biliary tree: The gallbladder is present. There is no biliary ductaldilatation. Spleen: The spleen is normal in size. There is a nonspecific 2.1 cmhypodense posterior splenic lesion (series 2, image 29) which represent asplenic hemangioma. Pancreas: The pancreas is normal in size and enhances homogenously. Adrenal glands: Unremarkable. Kidneys: There is mild right hydronephrosis with a 6 mm right renalpelvic stone. Multiple bilateral nonobstructing renal stones measuring upto 7 mm PET there is no left hydronephrosis Small low density foci in thekidneys are too small to characterize. There is bilateral renal corticalatrophy. Lymph nodes: Abdomen: There is no abdominal adenopathy. Pelvis: There is no pelvic adenopathy. Vasculature: There is no abdominal aortic aneurysm. Atheroscleroticcalcification is seen. Peritoneum/mesentery/omentum: There is no free fluid or free air. GI tract: There is no bowel obstruction. The appendix is normal. There isno abnormal bowel wall thickening to suggest acute inflammation. Therectosigmoid colon is underdistended. Pelvic urogenital structures:The bladder is grossly unremarkable withinlimitation of streak artifact from the hip arthroplasty hardware.. Theuterus is present. There is no adnexal mass within limitation of streakartifact from the hip arthroplasty hardware.. Body wall: There are degenerative changes in the spine. No aggressiveosseous lesions identified. Partially imaged bilateral imaged hiparthroplasty hardware. T10 and T12 vertebral body hemangiomas. Smallfat-containing paraumbilical hernia. Hunter: (S/I) = series number / image number IMPRESSION: 1. No CT evidence of bowel obstruction or acute appendicitis. 2. Mild right hydronephrosis, likely secondary to partially obstructing 6mm renal pelvic stone. Complete evaluation of the distal right ureteral islimited due to streak artifact from the hip arthroplasty hardware. 3. Bilateral nonobstructing renal stones measuring up to 7 mm. Ordered By: CINDY JOHN Interpreted By: Dex Mary MD, 03/19/2024 7:20 PM us Cindy [facility] Final Result * LIPASE (03/19/2024 5:23 PM MARKETING CAMPAIGN ANALYST) LIPASE 52 13 - 75 UNITS/L 03/19/2024 5:53 PM MARKETING CAMPAIGN ANALYST [facility] 03/19/2024 5:23 PM MARKETING CAMPAIGN ANALYST us [facility] Final Result [facility] [address] [place] [address], [place] [phone] * COLONOSCOPY (10/17/2017) us Documents Scanned SCANNING Final Result * MAMMOGRAM (08/17/2017) Anatomical Region Laterality Modality Other us Documents Scanned SCANNING Final Result from Last 3 Months or Most Recently Relevant to Health Maintenance Insurance MEDICARE [facility] Care Teams Theatre Arts Professor Relationship Specialty Start Date End Date Aleshia Winston MD [address] [address] PCP - General FAMILY PRACTICE 03/19/24
--- OUTSIDE RECORDS SUMMARY | 2024-05-31 18:41 | XMS_ITS | Clinical Summary ---
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 Active atorvastatin (LIPITOR) [...] (05/26/2021): Added automatically from request for surgery [id number] Acute glaucoma of right eye 02/09/2021 Acute kidney injury 02/09/2021 Depression 02/09/2021 Borderline type 2 diabetes mellitus 02/09/2021 Closed dislocation of left hip 02/09/2021 Controlled restless legs syndrome 02/09/2021 Diabetes mellitus with stage 1 chronic kidney disease ([facility]/HCC) 02/09/2021 Fall injury while running 02/09/2021 History of total right hip replacement Hyperleukocytosis 02/09/2021 Increasing frequency of seizure activity 021 Migraine without status migrainosus, not intract able 02/09/2021 Neuropathy of left hand 02/09/2021 Normocytic anemia 02/09/2021 Opioid use 02/09/2021 Well child examination 02/09/2021 Hip joint instability, left 10/27/2020 Overview (10/27/2020): Added automatically from request for surgery [id number] Osteoarthritis of left hip 06/08/2018 Bilateral groin [...] Quadrivalent, Spl it, Preservative Free, Intramuscular 01/08/2021,01/18/2020 Surgical History Surgery Date Site/Laterality Comments WRIST FRACTURE SURGERY HERNIA REPAIR TONSILLECTOMY SKIN CANCER EXCISION HIP SURGERY 11/07/2019 - 12/07/2019 Left TOTAL HIP ARTHROPLASTY 07/09/2019 Right Medical History Medical History Date Comments Personal history of malignan t melanoma of skin History of malignant melanom a of skin - (Added by TW Conv) Asthma Cancer (CMS/HCC) (HCC) Depression Hypercholesteremia Hypertension Migraines Osteoarthritis Closed nondisplaced fracture of fifth left metatarsal bone 03/2021 Family History Medical History Relation Name Comments Cancer Father Arthritis Mother Clotting disorder Mother Anesthesia problems Neg Hx Breast cancer Neg Hx Relation Name Status Comments Father Mother Alive Social History Tobacco Use Types Packs/Day Years [...] on file Legal Sex Female 2:28 AM BLEACHER LARD Gender Identity Female 05/27/2021 1:46 PM BLEACHER LARD Sexual Orientation Not on file Occupation Industry Job Start Date Job End Date disabled Not on file Not on file Not on file Obstetrics History Para Term AB IAB SAB Ectopic Multiple Livin g Live Births 0 0 0 0 0 0 0 0 0 0 0 Last Filed Vital Signs Vital Sign Reading Time Taken Comments Blood Pressure 127/79 06/18/2021 4:56 PM BLEACHER LARD Pulse 90 06/18/2021 4:56 PM BLEACHER LARD Temperature 36.4 ??C (97.5 ??F) 06/18/2021 4:56 PM CS T Respiratory Rate 16 06/18/2021 4:56 PM BLEACHER LARD Oxygen Saturation 94% 06/18/2021 4:56 PM BLEACHER LARD Inhaled Oxygen Concentration - - Weight 85.8 kg (189 lb 3.2 oz) 06/17/2021 8:08 A M BLEACHER LARD Height 175.3 cm (5' 9 ) 06/17/2021 8:08 AM BLEACHER LARD Body Mass Index 27.94 06/17/2021 8:08 AM BLEACHER LARD Plan of Treatment Health Maintenance Due Date Last Done Comments Albumin Creatinine Ratio, Urine 1964 Cervical Cancer Screening 1964 Colon Cancer Screening-Colonoscopy 1964 Depression Screening 1964 Hepatitis C Screening 1964 Dilated Eye Exam 1964 Foot Exam 1964 Pneumococcal vaccine <65 (1 of 2 - PCV) 01/21/1970 DTaP/Tdap/Td Vaccine (1 - Tdap) 01/21/1975 Hepatitis B Screening 01/21/1982 Regular Well Visit/Exam 18-64 01/21/1982 Zoster Vaccine (1 of 2) 01/21/2014 Hemoglobin A1C 04/03/2021 10/01/2020, 10/2019, 09/07/2015 Lipid Panel 10/01/2021 10/01/2020, 02/08, 09/07/2015 eGFR 06/18/2022 06/18/2021, 06/04/2021 Covid-19 Vaccine (2023-2 5 season) 2024 05/19/2021, 09/01/2020, 08/11/2020 Influenza Vaccine (#1) 2024 01/08/2021, 2019 Breast Cancer Screening-Mammogram 02/19/2025 02/20/2024, 02/15/2023, 10/06/2021, Additional history exists Medical Devices Implanted Type Area Issuer Device Identifier Shelf Expiration Date Model / Serial / Lot Hip Bilateral : Hip Wrist Left: Wrist Description:Screws [employer]/ Ortho [id number] 40mm 22mm 2 Mobility Insert Acetabular Xlpe - [id number] Implanted:Qty: 1 on 06/17/2021 by Nate Little MD at [facility] Left: Hip [employer]/Or tho [id number] 09/30/2030 [id number] / / [id number] [employer]/ Ortho [id number] Or3o 40mm 2 Mobility Liner Acetabular - [id number] Implanted:Qty: 1 on 06/17/2021 by Nate Little MD at [facility] Left: Hip [employer]/Or tho [id number] 10/06/2030 [id number] / / [id number] [employer]/ Ortho [id number] 22mm Hip +8mm 04/21 Head Femoral Oxinium - [id number] Implanted:Qty: 1 on 06/17/2021 by Nate Little MD at [facility] Left: Hip [employer]/Or tho [id number] 01/03/2031 [id number] / / [id number] Procedures Procedure Name Priority Date/Time Associated Diagnosis Comments SCREENING MAMMOGRAM BILATERAL W KP Schedule Routine, Read Routine (OP Routine) 02/20/2024 2:55 PM CDT Encounter for screening mammogram for malignant neoplasm of breast EGFR Routine 06/18/2021 3:01 AM BLEACHER LARD HEMOGLOBIN A1C Routine 10/01/2020 7:34 AM CDT [...] age 40, based on guidelines of the [place] [employer] (ACR Practice Parameter for the Performance of Screening and Diagnostic Mammography) and [place] [employer]. For women [...] Res ult * eGFR (06/18/2021 3:01 AM BLEACHER LARD) eGFR 75 mL/min/1. 73 m2 [facility] Comment: Interpretive Data Reference Interval Normal ?>/= [...] last reviewed 2021. Blood 06/18/2021 3:01 AM BLEACHER LARD 06/18/2021 3:03 AM BLEACHER LARD us Rik San MD LAB BLOOD ORDERABLES Final Result Performing Organization Address City/[facility]/ZIP Co de Phone Number [facility] [address] [facility]. [place] [address] * (ABNORMAL) Hemoglobin A1c (10/01/2020 7:34 AM CDT) Hemoglobin A1c % 5.7(H) 4.0 - 5.6 % [facility] Comment: ADA 2016 GUIDELINES: ??Initial Diagnostic Criteria ? HbA1c Result: ?Interpretation: ?<5.7% ? Normal ?5.7-6.4% ?At risk for diabetes mellitus ?>=6.5% ?Consistent with diabetes mellitus ??Diabetes monitoring ? Target value (ADA Recommended) ?? <7% 10/01/2020 7:34 AM CDT 10/01/2020 7:44 AM CDT Narrative Resulting Agency Comment IN us Jaun Evangelista MD LAB BLOOD ORDERABLES Final Result Performing Organization Address [facility] Co de Phone Number [facility] [address] [place] [address], [facility] [phone] * Lipid panel (10/01/2020 7:34 AM CDT) Triglycerides 106 0 - 149 mg/dL [facility] Comment: National Lipid Association/NCEP Guidelines: ?? Normal ?< 150 mg/dL ?? Borderline high ?? 150-199 mg/dL ?? High ?200-499 mg/dL ?? Very High ? >=500 mg/dL Cholesterol 133 0 - 199 mg/dL [facility] Comment: National Lipid Association/NCEP Guidelines: Desirable ? < 200 mg/dL Borderline high: ??200-239 mg/dL High Risk: ?>=240 mg/dL HDL Cholesterol 44 mg/dL [facility] Comment: Reference Ranges: ? Males: >=40 mg/dL ? Females: >=50 mg/dL LDL Cholesterol, Calc 68 0 - 129 mg/dL [facility] Comment: National Lipid Association/NCEP Guidelines: ??Optimal ? < 100 mg/dL ??Near Optimal ?100-129 mg/dL ??Borderline high 130-159 mg/dL ??High ?>=160 mg/dL Cholesterol/HDL Ratio 3.0 [facility] Comment: Optimal ??< 3.5:1 High ? > 5:1 10/01/2020 7:34 AM CDT 10/01/2020 7:44 AM CDT Narrative Resulting Agency Comment IN Jaun Evangelista MD LAB BLOOD ORDERABLES Final Result [facility] [address] [place] [address], [facility] [phone] from Last 3 Months or Most Recently Relevant to Health Maintenance Insurance MEDICARE [facility] CHOICE PLUS MEDICARE [facility] CHOICE PLUS MEDICARE [facility] CHOICE PLUS Advance Directives For more information, please contact: [phone] * Full Code (Latest Code Status on File) Date Activated Date Inactivated Comments 06/17/2021 12:53 PM 06/18/2021 9:57 PM Care Teams Utility Bill Collection Clerk Relationship Specialty Start Date End Date Philip Vergara MD [address] [address] PCP - General Family Medicine 10/18/18 Safia Romano MD [address] [address] Consulting Physician Obstetrics and Gynecology 10/06/21
== END 2024-05-29 13:59 | disposition home or self-care (01) ==
PROVIDERS: PCP Family Medicine; Visit Provider Urology
DX: N20.0 Calculus of kidney (principal)
CPT/HCPCS: 74018

== ENCOUNTER 2024-06-29 12:25 | Outpatient (CLI) | payer OTHER, MEDICARE, SELFPAY ==
--- OUTSIDE RECORDS SUMMARY | 2024-06-29 12:32 | XMS_ITS | Data Portability ---
Author Organization [employer] , [facility] Address [address] [place] [address] Assessment No assessment recorded. Plan of Treatment Reminders Order Date Submit Date Provider Last Modified By Organization Details Last Modified Time Details Appointments None recorded. Lab pap, LB 2023 024 [facility], [address] [place], [address], 4 15:52:32 HPV E6+E7 mRNA, qualitative PCR, cervix 2023 024 [facility], [address] [place], [address], 4 09:20:56 HPV E6+E7 mRNA, qualitative PCR, cervix 2021 022 [facility], [address] [place], [address], 2 15:47:18 pap, LB 2021 022 [facility], [address] [place], [address], 2 17:53:52 Referral None recorded. Procedures None recorded. Surgeries None recorded. Imaging MAMMO, screening, digital, bilateral 2023 024 [facility], [address] [place], [address], 4 16:10:06 MAMMO, screening, digital, bilateral [address] [facility] [place] [facility], [address] , [place], [address], 13:43:56 Medication Orders Estrace 0.01% (0.1 mg/gram) vaginal cream 2023 024 [id number], [address], [place], [address], 4 15:43:42 Prometrium 100 mg capsule 2023 024 [id number], [address], [place], [address], 4 15:43:41 Vivelle-Dot 0.05 mg/24 hr transdermal patch 2023 024 [id number], [address], [place], [address], 4 15:43:43 Patient TargetsNo targets recorded. Patient Instructions Encounter Date Encounter Id Patient Instructions Last Modified By Organization Details Last Modified Time 03/18/2022 [id number] A healthy lifestyle: care instructions Not available 03/18/2022 13:54:44 substance use disorder: care instructions Not available 03/18/2022 13:54:44 tobacco cessation Not availabl e 03/18/2022 13:54:44 calcium and vitamin D combination Not available 03/18/2022 13:54:44 depression (wome n only) Not available 03/18/2022 13:54:44 eating healthy foods: care instructions Not available 03/18/2022 13:54:44 exercise program : getting started Not available 03/18/2022 13:54:44 12/27/2023 [id number] body mass index: care instructions Not available [...] l cervi darren cytol ogy. Not Available [facility] [address] [place], [address], 03/19/2022 15:47:18 03/18/2003/23/2022 THINP REP TIS PAP clinical information: normal None given Not Available [employer] [address] [place], [address], 03/23/2022 17:53:52 03/18/20 22 03/23/2022 THINP REP TIS PAP LMP: normal NONE GIVEN Not Available [employer] [address], [address], 03/23/2022 17:53:52 03/18/20 22 03/23/2022 THINP REP TIS PAP prev. Pap: normal NONE GIVEN Not Available [facility] [address] [place], [address], 03/23/2022 17:53:52 03/18/20 22 03/23/2022 THINP REP TIS PAP prev. BX: normal NONE GIVEN Not Available [facility] [address] [place], [address], 03/23/2022 17:53:52 03/18/20 22 03/23/2022 THINP REP TIS PAP source: normal Cervi x Not Available [facility] [address] [place], [address], 03/23/2022 17:53:52 03/18/20 22 03/23/2022 THINP REP TIS PAP statement of adequacy: normal SATIS FACTO RY FOR EVALU ATION Not Available [address] [address] [place], [address], 03/23/2022 17:53:52 03/18/20 22 03/23/2022 THINP REP TIS PAP interpretati on/result: Negat blue for intra epith elial lesio n or malbelen sernacy . Atrop [place] boss rn; predo amina galan parab ronda cells Not Available [address] [address] [place], [address], 03/23/2022 17:53:52 03/18/20 22 03/23/2022 THINP REP TIS PAP comment: normal This Pap test has been evalu ated with compu ter jose ramiro techn ology . Not Available [address] [address] [place], [address], 03/23/2022 17:53:52 03/18/20 22 03/23/2022 THINP REP TIS PAP cytotechnolo gist: normal XUAN, CT( CP) CT scree alayna locat ion: [address] [address] [place] [address] Not Available [address] [address] [place], [address], 03/23/2022 17:53:52 03/18/20 22 03/23/2022 THINP REP [...] clini darren infor dilcia n. Not Available [address] [place], [address], 03/23/2022 17:53:52 12/27/19 24 01/01/2024 THINP REP TIS PAP clinical information: normal None given Not Available [address], [address], 01/01/2024 15:52:32 12/27/19 24 01/01/2024 THINP REP TIS PAP LMP: normal NONE GIVEN Not Available [address], [address], 01/01/2024 15:52:32 12/27/19 24 01/01/2024 THINP REP TIS PAP prev. Pap: normal NONE GIVEN Not Available [address], [address], 01/01/2024 15:52:32 12/27/19 24 01/01/2024 THINP REP TIS PAP prev. BX: normal NONE GIVEN Not Available [address], [address], 01/01/2024 15:52:32 12/27/19 24 01/01/2024 THINP REP TIS PAP source: normal None given Not Available [address], [address], 01/01/2024 15:52:32 12/27/19 24 01/01/2024 THINP REP TIS PAP statement of adequacy: normal Satis facto ry for evalu ation . Endoc ervic al/tr ansfo rmati on zone compo nent absen t. Not Available [address] [place], [address], 01/01/2024 15:52:32 12/27/19 24 01/01/2024 THINP REP TIS PAP interpretati on/result: normal Cytol ogy Resul ts: Negat blue for intra epith elial lesio n or malbelen beltran . Not Available [facility] [address] [place], [address], 01/01/2024 15:52:32 12/27/19 24 01/01/2024 THINP REP TIS PAP comment: normal This Pap test has been evalu ated with compu ter jose ramiro techn ology . Not Available [facility] [address], [place], [address], 01/01/2024 15:52:32 12/27/19 24 01/01/2024 THINP REP TIS PAP cytotechnolo gist: normal ESW, CT( CP) CT Scree alayna Locat ion: [facility] [place] [address] [place] [address] Not Available [address], [place], [address], 01/01/2024 15:52:32 12/27/19 24 01/01/2024 THINP REP [...] clini darren infor matio n. Not Available [facility] [address], [place], [address], 01/01/2024 15:52:32 12/27/19 24 01/03/2024 HPV HIGH [...] l cervi darren cytol ogy. Not Available [facility] [address] [place], [address], 01/04/2024 09:20:56 02/17/20 23 02/15/2023 MAMMO , scree alanya, digit al, bilat eral No observ ation record ed. [address] [facility] [address] [facility], [place], [address], 02/16/2023 09:26:03 02/20/20 24 02/20/2024 MAMMO , scree alayna, digit al, bilat eral No observ ation record ed. [address], [address], 02/20/2024 22:37:33 Result Notes None recorded. Problems Name Problem SNOMED Code Status Onset Date Resolution Date Notes Provider Name and Address Organization Details Recorded Time Breast neoplasm screenin g NOS Completed 201610/01/2016 Screenin g for breast cancer, unspecif ied; Location : None Severity : Moderate Progress : Stable Added By: Samaria Ocampo Add to Current Problems : YES ProblemS tatus: Resolve Not Available [facility] 1 20:40:09 Finding of menstrua l bleeding Completed 201509/29/2015 Oligomen orrhea, unspecif ied; Progress : Stable Added By: Samaria Ocampo Add to Current Problems : NO ProblemS tatus: Resolve Not Available [facility] 2 21:40:[address] Concept Completed 201607/17/2017 Encounte r for follow-u p examinat ion after complete d treatmen t for conditio ns other than malignan t neoplasm ; Progress : Stable Added By: Cris Lin Add to Current Problems : NO ProblemS tatus: Resolve Not Available [facility] 2 21:40:06 Surgical follow-u p - normal 191683858 Completed 201607/17/2017 Follow-u p exam followin g surgery; Location : None Severity : Moderate Progress : Stable Added By: Cris Lin Add to Current Problems : YES ProblemS tatus: Resolve Not Available [facility] 1 20:40:09 Breast neoplasm screenin g status 577641223 Completed 201610/01/2016 Encounte r for other screenin g for malignan t neoplasm of breast; Progress : Stable Added By: Samaria Ocampo Add to Current Problems : NO ProblemS tatus: Resolve Screenin g for breast cancer, unspecif ied; Location : None Progress : Stable Added By: Samaria Ocampo Add to Current Problems : YES ProblemS tatus: Resolve Not Available [facility] 2 21:40:06 Menometr orrhagia 574149260 Completed 201610/02/2017 Menometr orrhagia ; Location : None Progress : Stable Added By: Jackeline Soto Add to Current Problems : YES ProblemS tatus: Resolve Not Available [facility] 2 21:40:05 Oligomen orrhea 32600082 Completed 201509/29/2015 Oligomen orrhea; Location : None Progress : Stable Added By: Samaria Ocampo Add to Current Problems : YES ProblemS tatus: Resolve Not Available [facility] 2 21:40:05 Finding of menstrua l bleeding Completed 201610/02/2017 Excessiv e and frequent menstrua tion with regular cycle; Progress : Stable Added By: Jackeline Soto Add to Current Problems : NO ProblemS tatus: Resolve Not Available [facility] 2 21:40:05 Family planning educatio n done [id number] 9104 Completed 201409/20/2014 Family planning advice; Location : None Severity : Moderate Progress : Stable Added By: Fang Huizar Add to Current Problems : YES ProblemS tatus: Resolve Not Available [facility] 1 20:40:10 Herpes simplex 98267631 Completed 201409/20/2014 Herpes simplex, without complica tion; Location : None Progress : Stable Added By: Meckfess el, Fang A Add to Current Problems : YES ProblemS tatus: Resolve Not Available [facility] 21:40:05 Postoper ative follow-u p visit Completed 201607/17/2017 Follow-u p exam followin g surgery; Location : None Progress : Stable Added By: Cris Lin Add to Current Problems : YES ProblemS tatus: Resolve Not Available [facility] 21:40:05 Problem Notes None recorded. Procedures Surgical History Date Name Laterality Status Provider Name and Address Organization Details Recorded Time 02/16/20 23 Most Recent Mammogram completed Safia Romano MD [address] [facility], [place], [address], [facility] 02/16/2023 09:25:43 03/18/20 22 Date of [facility] 10/25/2023 15:15:31 05/09/19 14 Date of Last Colonoscopy completed [facility] 03/18/2022 13:40:01 tonsillectomy completed Isabel [facility] [employer] [facility] IV 03/18/2022 13:41:08 hernia repair completed [facility] 03/18/2022 13:41:19 total replacement of right hip joint completed Isabel [facility] [employer] [facility] IV 03/18/2022 13:41:45 total replacement of left hip joint completed Pipp[facility] [employer] [facility] IV 11/21/2023 15:11:07 Imaging Results Imaging Date Name Status LastModified by Organiz ation Details LastModified Time 02/15/2023 MAMMO, screening, digital, bilateral completed [address] [facility] [address] [facility], [place], [address], 02/16/2023 09:26:03 02/20/2024 MAMMO, screening, digital, bilateral completed [address], [address], 02/20/2024 22:37:33 Procedure Notes None recorded. Medical [...] metFORMI N 500 mg oral tablet RxNorm: 026412 Allow Substitu tion: True Refill Denied: No [...] completed Prozac 40 mg oral capsule RxNorm: 766761 Allow Substitu tion: True Refill Denied: No [...] active Xanax 2 mg oral tablet RxNorm: 671606 Allow Substitu tion: True Refill Denied: No [...] succinat e 50 mg oral tablet RxNorm: 336711 Allow Substitu tion: True Refill Denied: No [...] 08/15 completed Acyclovi r 400mg Tablet RxNorm: 438773 Allow Substitu tion: True Refill Denied: No [...] oral Tablet, Extended Release 12 hr RxNorm: 214946 Refill Denied: No Refill DateOccu rred: 02/18/20 [...] completed Metformi n HCl 500mg Tablet RxNorm: 150549 Allow Substitu tion: True Refill Denied: No Refill DateOccu rred: 07/23/19 15 Not Available Not Available Not Available sumatript an PRN 03/18 completed Sumatrip freeman 50mg Tablet RxNorm: 147233 Allow Substitu tion: True Refill Denied: No Refill DateOccu rred: 07/31/19 16 Not Available Not Available Not Available acyclovir 1 p.o. qd 07/22 completed Acyclovi r 400mg Tablet RxNorm: 429858 Allow Substitu tion: True Refill Denied: No Not Available Not Available Not Available Zyprexa Take 1 tablet(s ) by mouth daily 2014 active Zyprexa 20mg Tablet RxNorm: 878991 Allow Substitu tion: True Refill Denied: No Refill DateOccu rred: 07/23/19 15 Not Available Not Available Not Available Prozac Take 2 capsule( s) by mouth qam 2014 active Prozac 40mg Capsules RxNorm: 404429 Allow Substitu tion: True Refill Denied: No Refill DateOccu rred: 07/23/19 15 Not Available Not Available Not Available Lamictal Take 1 tablet(s ) by mouth daily 2014 active Lamictal 200mg Tablet RxNorm: 756436 Allow Substitu tion: True Refill Denied: No Refill DateOccu rred: 07/23/19 15 Not Available Not Available Not Available Xanax Take 1 tablet(s ) by mouth tid prn 12/26 completed Xanax 2mg Tablet RxNorm: 145618 Allow Substitu tion: True Refill Denied: No Refill DateOccu rred: 07/23/19 15 Edited by: Migdalia Nix) on 07/31/19 16 Stopped by: cr pedraza(Migdalia Lopez) on Not Available Not Available Not Available Cedric 07/08 completed Sarah Beth e 0.35mg Tablet Allow Substitu tion: True Refill Denied: No Not Available Not Available Not Available Xarelto 10 mg tablet TAKE 1 TABLET BY MOUTH EVERY DAY 11/20 completed Not Available Not Available Not Available Vitals Date Recorded Body height Body mass index (BMI) Body weight Provider Name and Address Organization Details Last Updated DateTime 03/18/2022 175.26 cm 28.2 kg/m2 46725.86 g Isabel Lemons [facility] [employer] IV 03/18/2022 13:38:52 Date Recorded Body height Body mass index (BMI) Body weight Body temperature Systolic blood pressure Diastolic blood pressure Provider Name and Address Organization Details Last Updated DateTime 4 172.72 cm 24.3 kg/m2 64355.7 8 g 94.9 [degF] 104 mm[Hg] 64 mm[Hg] Pippa Cliff [facility] [employer] [facility] 4 15:12:30 Date Recorded Body height Body mass index (BMI) Body weight Systolic blood pressure Diastolic blood pressure Provider Name and Address Organization Details Last Updated DateTime 12/27/2023 172.72 cm 24.8 kg/m2 49737.84 g 110 mm[Hg] 70 mm[Hg] Isabel Lemons [employer] [facility] 13:34:43 Social History Question Answer Notes LastModified by Organizat ion Details LastModified Time Tobacco Smoking Status Never Smoker Isabel Lemons null, [employer] [facility] 03/18/2022 13:40:50 What Is Your Level Of Alcohol Consumption? Occasional [email or web address] Information not available 03/18/2022 How Many Times Per Week Do You Consume Alcohol? 1-2 Times Per Week [email or web address] Information not available 11/21/2023 Are You Blind Or Do You Have Difficulty Seeing? No [email or web address] Information not available 03/18/2022 Are You Deaf Or Do You Have Serious Difficulty Hearing? No [email or web address] Information not available 03/18/2022 What Type Of Diet Are You Following? REGULAR [email or web address] Information not available 03/18/2022 How Many Children Do You Have? 0 [email or web address] Information not available 11/21/2023 What Is Your Relationship Status? 30 Years [email or web address] Information not available 11/21/2023 Are You Sexually Active? Yes [email or web address] Information not available 03/18/2022 Do You Use Any Illicit Or Recreational Drugs? No Information not available 03/18/2022 Do You Or Have You Ever Used Any Other Forms Of Tobacco Or Nicotine? No [email or web address] Information not available 03/18/2022 Sex: Unknown Functional Status Question Answer Note LastModified by Organization D etails LastModified Time What is your exercise level? None [email or web address] Information not available 11/21/2023 Mental Status None recorded. Family History Relationship Description Onset Age of this Age Resolved Age Notes LastModified by Organization Details LastModified Time Father No current problems or disability [email or web address] Not available 03/09 13:40:19 Mother No current problems or disability [email or web address] Not available 03/09 13:40:19 Medical History Condition Response High Blood Pressure N Cytomegalovirus N Hyperthyroidism N MRSA N Blood Transfusion N Depression N Incontinence N Anxiety Disorder N Autoimmune disease N Arthritis N Polycystic Ovarian Syndrome N Hematuria N Varicosities N Stroke N Seasonal allergies N Crohn's Disease N Alzheimer's/Dementia N COPD/Emphysema N History of Abnormal Pap N Fibromyalgia N Kidney Infection N Kidney Disease N Gallbladder disease N Von Willebrand disease N Eating Disorder N Diabetes Mellitus (non-insulin dependent ) N Ovarian Problems N Frequent Urinary Tract infections N Osteopenia N GERD (reflux) N Diabetes (insulin dependent) N Heart Attack N Asthma N Endometrial Cancer N Hepatitis N Pulmonary Embolism N RPR N Chicken Pox N Other Cancer N Colon Cancer N Herpes (HSV) N Breast Cancer N Lung Cancer N Hypothyroidism N Panic Attacks N Neurological Disorder N Deep Vein Thrombosis N Shingles N Tuberculosis/Positive PPD N Cervical Cancer N Chlamydia N Endometriosis N HPV/Genital Warts N IBS (Irritable Bowel Syndrome) N High Cholesterol N Liver Disease N Ulcer N HIV N Sickle Cell Disease/Trait N ADD/ADHD N Anemia N Multiple Sclerosis N Gonorrhea N Headaches/migraines N Ovarian Cancer N Seizures/Epilepsy N Fibroids N Lupus N Rubella N Blood Clotting Disorder N Bipolar Disorder N Diabetes Mellitus (during ) N Ulcerative Colitis N Heart Disease N Osteoporosis N Gynecological History Statement/Question Response [...] SNOMED-CT Code Diagnosis ICD10 Code Diagnosis Note [id number] Safia Romano MD [facility] [address] [place] [address] 03/18/2022 13:22:21 03/18/2022 14:06:05 Gynecologic examination 46955521 Z01.419 Screening for malignant neoplasm of cervix 114333486 Z12.4 Screening for malignant neoplasm of breast 571242847 Z12.39 [id number] Jesús Fagan MD [address] [place] [address] 11/21/2023 14:07:05 11/21/2023 15:52:07 Menopausal symptom 60258830 N95.1 discussed any form of transderma l estrogen and prometrium 100mg daily orally or proogester one 50mg transderma lly daily or prometrium 200mg days 1-10 q 1 to 4th month or no progestron e and us in 6 months x 2 then yearly after unoppsed HRT aswell as possibly osphena and vagifem... .can do any combinatio n and will call [facility] pharmacy for any hormone regimen if desires to [facility] in [facility] for estrogen cream vaginally or E,P,and or Testostero ne cream combinatio n and we would use estriol only as a form of estrogen for least amt of stimulatio n to the breast if desiresFOL LOW-UP: Schedule follow-up appointmen ts on a p.r.n. basis. .Additiona l diagnosis detail: Menopausal symptoms Atrophic vaginitis 95231 000 N95.2 [id number] Safia Romano MD [facility] [address] [place] [address] 12/27/2023 13:12:53 12/27/2023 13:59:29 Gynecologic examination 76333915 Z01.419 Screening for malignant neoplasm of cervix 890961026 Z12.4 Screening for malignant neoplasm of breast 668102078 Z12.31 Depression screening 171 821823 Z13.31 refer to intake screening Health Concerns Section Related Observation LastModified by Organization Detai ls LastModified Time None Recorded Concern Status LastModified by Organization Details LastModified Time None Recorded Advance Directives Directive None Recorded Payers Encounter Date Sequence Insurance Name Policy Number Policy Dobson Covered Member ID Dobson Member ID Guarantor Name 03/18/2022 2 [place] Abby E Mert [id number] Abby Rudd Mert 03/18/2022 2 [facility] [employer] [id number] Abby Rudd Mert 11/21/2023 2 [place] Abby E Mert [id number] Abby Rudd Mert 12/27/2023 2 [place] Abby E Mert [id number] Abby Rudd Mert Notes Date Note Type Note Provider Name and Address Organization Details Recorded Time 03/18/2022 text/html Annual Electorate Officer Post-MenopausalRep orted bypatient.Menopaus al Symptoms:no menopausal symptoms [...] annual well women visit Safia Romano MD [address] [place] [address], [phone], [facility] [employer] [facility] 03/18/2022 13:55:06 11/21/2023 text/html Annual GYNReport ed [...] had been on HRT Jesús Fagan MD [address] [place] [address], [phone], [facility] 11/21/2023 15:50:37 12/27/2023 text/html Annual Electorate Officer Post-MenopausalRep orted bypatient.Menopaus al Symptoms:hot flashes Vaginal [...] 02/15/2023, Last colonoscopy 2013 Safia Romano MD [address] [place] [address], [phone], [facility] [facility] 12/27/2023 13:58:56 OBGyn Episode No OBEpisode recorded.
--- OUTSIDE RECORDS SUMMARY | 2024-06-29 12:32 | XMS_ITS | Clinical Summary ---
Author Organization [facility] Address [address] [place] [id number] Care Team Providers Care Restaurant Hospitality Manager Name Role Phone Safia Romano MD Unavailable [phone] Aleshia Winston MD Primary Care Provider [phone] Allergies Active Allergy Reactions Criticality Noted Date [...] 1 tablet (2,000 Units total) by mouth dental laboratory technology teacher before breakfast 9 Active lamoTRIgine (LaMICtal) 200 mg tabletIndicatio ns:Depression associated with Bipolar Disorder Take 1 tablet (200 mg total) by mouth nightly at bedtime. 1 9 Active FLUoxetine (PROzac) 20 mg capsule Take 1 capsule (20 mg total) by mouth dental laboratory technology teacher before breakfast Active atorvastatin (LIPITOR) 40 mg [...] (05/26/2021): Added automatically from request for surgery [id number] Acute glaucoma of right eye 02/09/2021 Acute kidney injury 02/09/2021 Depression 02/09/2021 Borderline type 2 diabetes mellitus 02/09/2021 Closed dislocation of left hip 02/09/2021 Controlled restless legs syndrome 02/09/2021 Diabetes mellitus with stage 1 chronic kidney disease ([facility]/HCC) 02/09/2021 Fall injury while running 02/09/2021 History of total right hip replacement Hyperleukocytosis 02/09/2021 Increasing frequency of seizure activity 021 Migraine without status migrainosus, not intract able 02/09/2021 Neuropathy of left hand 02/09/2021 Normocytic anemia 02/09/2021 Opioid use 02/09/2021 Well child examination 02/09/2021 Hip joint instability, left 10/27/2020 Overview (10/27/2020): Added automatically from request for surgery [id number] Osteoarthritis of left hip 06/08/2018 Bilateral groin [...] 11/30/2010 Malignant melanoma of skin 11/30/2010 Immunizations Immunization Administration Dates Next Due Influenza, Quadrivalent, Spl [...] on file Legal Sex Female 2:28 AM ROLL HAND Gender Identity Female 05/27/2021 1:46 PM ROLL HAND Sexual Orientation Not on file Occupation Industry Job Start Date Job End Date disabled Not on file Not on file Not on file Obstetrics History Para Term AB IAB SAB Ectopic Multiple Livin g Live Births 0 0 0 0 0 0 0 0 0 0 0 Last Filed Vital Signs Vital Sign Reading Time Taken Comments Blood Pressure 127/79 06/18/2021 4:56 PM ROLL HAND Pulse 90 06/18/2021 4:56 PM ROLL HAND Temperature 36.4 C (97.5 F) 06/18/2021 4:56 PM ROLL HAND Respiratory Rate 16 06/18/2021 4:56 PM ROLL HAND Oxygen Saturation 94% 06/18/2021 4:56 PM ROLL HAND Inhaled Oxygen Concentration - - Weight 85.8 kg (189 lb 3.2 oz) 06/17/2021 8:08 A M ROLL HAND Height 175.3 cm (5' 9 ) 06/17/2021 8:08 AM ROLL HAND Body Mass Index 27.94 06/17/2021 8:08 AM ROLL HAND Plan of Treatment Health Maintenance Due Date Last Done Comments Albumin Creatinine Ratio, Urine 1965 Cervical Cancer Screening 1965 Colon Cancer Screening-Colonoscopy 1965 Depression Screening 1965 Hepatitis C Screening 1965 Dilated Eye Exam 1964 Foot Exam 1965 DTaP/Tdap/Td Vaccine (1 - Tdap) 01/21/1975 Hepatitis B Screening 01/21/1982 Regular Well Visit/Exam 18-64 01/21/1982 Pneumococcal vaccine <65 (1 of 2 - PCV) 01/21/1983 Zoster Vaccine (1 of 2) 01/21/2014 Hemoglobin A1C 04/03/2021 10/01/2020, 020 10/2019, 09/07/2015 Lipid Panel 10/01/2021 10/01/2020, 02/08, 09/07/2015 eGFR 06/18/2022 06/18/2021, 06/04/2021 Covid-19 Vaccine (2023-2 5 season) 2024 05/19/2021, 09/01/2020, 08/11/2020 Influenza Vaccine (#1) 2024 01/08/2021, 2019 Breast Cancer Screening-Mammogram 02/19/2025 02/20/2024, 02/15/2023, 10/06/2021, Additional history exists Medical Devices Implanted Type Area Fabric Inspector Device Identifier Shelf Expiration Date Model / Serial / Lot Hip Bilateral : Hip Wrist Left: Wrist Description:Screws [employer]/ Ortho [id number] 40mm 22mm 2 Mobility Insert Acetabular Xlpe - [id number] Implanted:Qty: 1 on 06/17/2021 by Nate Little MD at [facility] Left: Hip [employer]/Or tho [id number] 09/30/2030 [id number] / / [id number] [employer]/ Ortho [id number] Or3o 40mm 2 Mobility Liner Acetabular - [id number] Implanted:Qty: 1 on 06/17/2021 by Nate Little MD at [facility] Left: Hip [employer]/Or tho [id number] 10/06/2030 [id number] / / [id number] [employer]/ Ortho [id number] 22mm Hip +8mm 12/14 Head Femoral Oxinium - [id number] Implanted:Qty: 1 on 06/17/2021 by Nate Little MD at [facility] Left: Hip [employer]Or tho [id number] 01/03/2031 [id number] / / [id number] Procedures Procedure Name Priority Date/Time Associated Diagnosis Comments SCREENING MAMMOGRAM BILATERAL W KP Schedule Routine, Read Routine (OP Routine) 02/20/2024 2:55 PM CDT Encounter for screening mammogram for malignant neoplasm of breast EGFR Routine 06/18/2021 3:01 AM ROLL HAND HEMOGLOBIN A1C Routine 10/01/2020 7:34 AM CDT LIPID PANEL Routine 10/01/2020 7:34 AM CDT from Last 3 Months or Most Recently Relevant to Health Maintenance Results * Screening Mammogram Bilateral W Kp (02/20/2024 2:55 PM CDT) Anatomical Region Laterality Modality Breast Bilateral Mammography Impressions 02/20/2024 3:06 PM CDT BI-RADS ATLAS category (overall): 1 - Negative There is no mammographic evidence of malignancy. A 1 year screening mammogram is recommended. The patient has been or will be contacted. We recommend annual screening mammography for women at average risk of breast cancer beginning at age 40, based on guidelines of the [place] [employer] (ACR Practice Parameter for the Performance of Screening and Diagnostic Mammography) and [place] [employer]. For women [...] in the CC and MLO projections. CLINICAL: Encounter for screening mammogram for malignant neoplasm of breast. No relevant medical history has been documented for [...] breast. There has been no suspicious change. Aleshia Winston MD IMG MAMMO PROCEDURES Final Res ult * eGFR (06/18/2021 3:01 AM ROLL HAND) eGFR 75 mL/min/1. 73 m2 [facility] Comment: Interpretive Data Reference Interval Normal >/= 90 mL/min/1.73m2 Mildly decreased* 60 - 89 mL/min/1.73m2 Mildly to moderately decreased 45 - 59 mL/min/1.73m2 Moderately to severely decreased 30 - 44 mL/min/1.73m2 Severely decreased 15 - 29 mL/min/1.73m2 Kidney Failure < 15 mL/min/1.73m2 *Relative to young adult level Estimated glomerular [...] last reviewed 2021. Blood 06/18/2021 3:01 AM ROLL HAND 06/18/2021 3:03 AM ROLL HAND us Rik San MD LAB BLOOD ORDERABLES Final Result [facility] [address] [facility] Department [place] [address] * (ABNORMAL) Hemoglobin A1c (10/01/2020 7:34 AM CDT) Hemoglobin A1c % 5.7(H) 4.0 - 5.6 % [facility] Comment: ADA 2016 GUIDELINES: Initial Diagnostic Criteria HbA1c Result: Interpretation: <5.7% Normal 5.7-6.4% At risk for diabetes mellitus >=6.5% Consistent with diabetes mellitus Diabetes monitoring Target value (ADA Recommended) <7% 10/01/2020 7:34 AM CDT 10/01/2020 7:44 AM CDT Narrative Resulting Agency Comment IN Jaun Evangelista MD LAB BLOOD ORDERABLES Final Result [place] [id number] [address] [phone] * Lipid panel (10/01/2020 7:34 AM CDT) Triglycerides 106 0 - 149 mg/dL [facility] Comment: National Lipid Association/NCEP Guidelines: Normal < 150 mg/dL Borderline high 150-199 mg/dL High 200-499 mg/dL Very High >=500 mg/dL Cholesterol 133 0 - 199 mg/dL [facility] Comment: National Lipid Association/NCEP Guidelines: Desirable < 200 mg/dL Borderline high: 200-239 mg/dL High Risk: >=240 mg/dL HDL Cholesterol 44 mg/dL [facility] Comment: Reference Ranges: Males: >=40 mg/dL Females: >=50 mg/dL LDL Cholesterol, Calc 68 0 - 129 mg/dL [facility] Comment: National Lipid Association/NCEP Guidelines: Optimal < 100 mg/dL Near Optimal 100-129 mg/dL Borderline high 130-159 mg/dL High >=160 mg/dL Cholesterol/HDL Ratio 3.[address] [facility] Comment: Optimal < 3.5:1 High > 5:1 10/01/2020 7:34 AM CDT 10/01/2020 7:44 AM CDT Narrative Resulting Agency Comment IN us Jaun Evangelista MD LAB BLOOD ORDERABLES Final Result [facility] [address] [place] [address], [facility] [phone] from Last 3 Months or Most Recently Relevant to Health Maintenance Insurance MEDICARE [facility] H[facility]/PPO Address: [address] [address] [place] [address] MEDICARE [facility] H[facility]/PPO Address: [address] [address] [place] [address] MEDICARE [facility] H[facility]/PPO Address: [facility] [address] [place] [address] Advance Directives For more information, please contact: [phone] * Full Code (Latest Code Status on File) Date Activated Date Inactivated Comments 06/17/2021 12:53 PM 06/18/2021 9:57 PM Care Teams Restaurant Hospitality Manager Relationship Specialty Start Date End Date Aleshia Winston MD [address] [address] PCP - General Family Medicine 06/14/24 Safia Romano MD Consulting Physician Obstetrics and Gynecology 10/06/21
--- OUTSIDE RECORDS SUMMARY | 2024-06-29 12:32 | XMS_ITS | Clinical Summary ---
Author Organization [facility] Address [address] [place] [address] Care Team Providers Care Mechanical Technologist Name Role Phone Aleshia Winston MD Primary Care Provider [phone] Allergies Active Allergy Reactions Criticality Noted Date [...] kidney disease) stage 3, GFR 30-59 ml/min ([facility]) 02/27/2018 Hip pain, right 11/30/2017 Serum creatinine raised 09/21/2017 Cellulitis, gluteal, left 09/12/2017 Costochondritis 10/09/2015 Dysuria 10/09/2015 Bipolar disorder ([facility]) 10/03/2014 Contact dermatitis 10/03/2014 Hyperlipidemia 01/11/2012 Encounters Date Type Department Care Team Description 04/13/2024 9:51 PM FOOTWEAR SALES LEADER - 04/14/2024 1:49 AM [facility] Emergency [facility] [place] [address] Demetrius Todd MD,PHD Flank Pain Discharge Disposition: Home or Self Care (Routine Discharge) 04/13/2024 Travel from Last 3 Months Immunizations Name [...] Comments Blood Pressure 139/98 04/14/2024 1:46 AM FOOTWEAR SALES LEADER Pulse 89 04/14/2024 1:46 AM FOOTWEAR SALES LEADER Temperature 36.8 C (98.2 F) 04/13/2024 9:27 PM FOOTWEAR SALES LEADER Respiratory Rate 16 04/13/2024 9:27 PM FOOTWEAR SALES LEADER Oxygen Saturation 94% 04/14/2024 1:46 AM FOOTWEAR SALES LEADER Inhaled Oxygen Concentration - - Weight 74.4 kg (164 lb) 04/13/2024 9:27 PM FOOTWEAR SALES LEADER Height 172.7 cm (5' 8 ) 04/13/2024 9:27 PM FOOTWEAR SALES LEADER Body Mass Index 24.94 04/13/2024 9:27 PM FOOTWEAR SALES LEADER Plan of Treatment Health Maintenance Due Date Last Done Comments Cervical Cancer Screening Pap Smear (Age 30 to 64) Every 3 Years 1964 Annual Physical 01/21/1967 Hepatitis C 01/21/1982 Cervical Cancer Screening Pap with HPV Testing (Age 30 to 64) Every 5 Years 01/21/1994 Cervical Cancer Screening with HPV 01/21/1994 Zoster Vaccines (1 of 2) 01/21/2014 COVID-19 Vaccine ( season) 2024 Influenza Adult (#1) 2024 01/08/2021, 01/18/2020, 01/29/2018, Additional history exists Mammogram Screening 02/19/2026 02/20/2024, 02/15/2023, 11/13/2021, Additional history exists DTaP, Tdap and Td Vaccines (2 - Td or Tdap) 12/12/2026 12/12/2016 Colorectal Cancer Screening Colonoscopy (10 Years) 10/18/2027 10/17/2017, RSV Immunization or 60+ Years (1 - 1-dose 75+ series) 01/21/2039 Meningococcal B Vaccine Aged Out No l onger eligible based on patient's age to complete this topic Meningococcal Vaccine Aged Out No terry abelino [...] COMPREHENSIVE METABOLIC PANEL STAT 04/13/2024 10:24 PM FOOTWEAR SALES LEADER CBC W/DIFF AUTOMATED STAT 04/13/2024 10:24 [address]AR SALES LE[address]ER [address] ABD+PEL KIDNEY STONE STAT 04/13/2024 10:23 PM FOOTWEAR SALES LEADER HC URINALYSIS AUTO W/O MICRO STAT 04/13/2024 10:23 PM FOOTWEAR SALES LEADER COLONOSCOPY GENERIC (SCAN ORDER) Routine 10/17/2017 MAMMOGRAM GENERIC (SCAN ORDER) Routine 08/17/2017 from Last 3 Months or Most Recently Relevant to Health Maintenance Results * (ABNORMAL) COMPREHENSIVE METABOLIC PANEL (04/13/2024 10:24 PM FOOTWEAR SALES LEADER) GLUCOSE 97 70 - 99 MG/DL 04/13/2024 11:02 PM FOOTWEAR SALES LEADER [facility] BUN 15 7 - 18 MG/DL 04/13/2024 11:02 PM FOOTWEAR SALES LEADER [facility] CREATININE S/P/B 0.92 0.55 - 1.02 MG/DL 04/13/2024 11:02 PM [facility] SODIUM S/P/B 138 136 - 145 MMOL/L 04/13/2024 11:02 PM [facility] POTASSIUM S/P/B 3.7 3.5 - 5.1 MMOL/L 04/13/2024 11:02 PM [facility] CHLORIDE S/P/B 106 97 - 115 MMOL/L 04/13/2024 11:02 PM [facility] CO2 28.4 21 - 32 MMOL/L 04/13/2024 11:02 PM [facility] CALCIUM S/P/B 9.4 8.5 - 10.1 MG/DL 04/13/2024 11:02 PM [facility] BILIRUBIN TOTAL S/P/B 1.3(H) 0.2 - 1.2 MG/DL 04/13/2024 11:02 PM [facility] Comment: THIS ASSAY IS NOT RECOMMENDED FOR PATIENTS UNDERGOING TREATMENT WITH ELTROMBOPAG DUE TO THE POTENTIAL FOR FALSELY ELEVATED RESULTS. TOTAL PROTEIN S/P/B 7.4 6.4 - 8.2 G/DL 04/13/2024 11:02 PM [facility] ALBUMIN S/P/B 4.1 3.4 - 5.0 G/DL 04/13/2024 11:02 PM [facility] AST 20 15 - 37 U/L 04/13/2024 11:02 PM [facility] ALT 23 14 - 55 U/L 04/13/2024 11:02 PM [facility] ALKALINE PHOSPHATASE S/P/B 66 50 - 136 U/L 04/13/2024 11:02 PM [facility] ANION GAP 3.6 2 - 10 MMOL/L 04/13/2024 11:02 PM FOOTWEAR SALES LEADER [facility] BUN CREATININE RATIO 16.3 6 - 26 04/13/2024 11:02 PM [facility] A/G RATIO 1.2 1.0 - 2.0 RATIO 04/13/2024 11:02 PM [facility] GFR ESTIMATE 71(L) >90 ML/MIN/1.7 3 M2 04/13/2024 11:02 PM [facility] Comment: NOTE: eGFR is not calculated for patients <18 years of age or gender unknown. This is an estimated GFR calculation using the new CKD EPI creatinine equation without race and so does not require a correction factor for race. This estimated GFR should not be used for calculating drug doses. 04/13/2024 10:2 4 PM FOOTWEAR SALES LEADER us Demetrius Todd MD,PHD LABORATORY Final Resu lt [facility] [address] [place] [address], [place] [phone] * (ABNORMAL) CBC W/DIFF AUTOMATED (04/13/2024 10:24 PM FOOTWEAR SALES LEADER) WBC 14.64(H) 4.5 - 11.0 x10'3/uL 04/13/2024 10:46 PM FOOTWEAR SALES LEADER [facility] RBC 4.64 4.20 - 5.40 x10'6/uL 04/13/2024 10:46 PM [facility] HGB 14.3 12.0 - 16.0 G/DL 04/13/2024 10:46 PM [facility] HCT 43.7 38.0 - 48.0 % 04/13/2024 10:46 PM [facility] MCV 94.2 81.0 - 99.0 FL 04/13/2024 10:46 PM [facility] MCH 30.8 27.0 - 31.0 PG 04/13/2024 10:46 PM [facility] MCHC 32.7 32.0 - 36.0 G/DL 04/13/2024 10:46 PM [facility] RDW 13.2 11.5 - 14.5 % 04/13/2024 10:46 PM [facility] PLT 284 130 - 400 x10'3/uL 04/13/2024 10:46 PM [facility] MPV 10.6 9.3 - 12.2 FL 04/13/2024 10:46 PM [facility] DIFFERENTIAL TYPE AUTOMATED DIFFERENTIAL 04/13/2024 10:46 PM [facility] NEUTROPHILS % 72.3 % 04/13/2024 10:46 PM [facility] LYMPHOCYTES % 19.8 % 04/13/2024 10:46 PM [facility] MONOCYTES % 5.9 % 04/13/2024 10:46 PM [facility] EOSINOPHILS 1.0 % 04/13/2024 10:46 PM [facility] BASOPHILS 0.6 % 04/13/2024 10:46 PM [facility] IMMATURE GRANS % 0.4 % 04/13/20 10:46 PM [facility] ABS. NEUTROPHILS 10.58(H) 1.80 - 7.70 x10'3/uL 04/13/2024 10:46 PM [facility] ABS. LYMPHOCYTES 2.90 1.00 - 4.80 x10'3/uL 04/13/2024 10:46 PM [facility] ABS. MONOCYTES 0.87(H) 0.24 - 0.86 x10'3/uL 04/13/2024 10:46 PM FOOTWEAR SALES LEADER [facility] ABS. EOSINOPHILS 0.14 0.04 - 0.36 x10'3/uL 04/13/2024 10:46 PM FOOTWEAR SALES LEADER [facility] ABS. BASOPHILS 0.09(H) 0.01 - 0.08 x10'3/uL 04/13/2024 10:46 PM FOOTWEAR SALES LEADER [facility] ABS. IMMATURE GRANULOCYTES 0.06 0.00 - 0.49 x10'3/uL 04/13/2024 10:46 PM FOOTWEAR SALES LEADER [facility] 04/13/2024 10:2 4 PM FOOTWEAR SALES LEADER us Demetrius Todd MD,PHD LABORATORY Final Resu lt [facility] [address] [place] [address], [place] [phone] * CT ABD+PEL KIDNEY STONE (04/13/2024 10:23 PM FOOTWEAR SALES LEADER) Anatomical Region Laterality Modality Abdomen Computed Tomogra phy 04/13/2024 11:1 4 PM FOOTWEAR SALES LEADER Impressions 04/13/2024 11:23 PM FOOTWEAR SALES LEADER IMPRESSION: Obstructing 6 mm calculus at the right renal pelvis resulting in mild calyectasis, no interval transit when compared to prior exam of 03/19/2024. Additional bilateral sub-9 mm nonobstructing renal calculi. Referred By: Interpreted By: Inge Guzman MD, 04/13/2024 11:14 PM Narrative 04/13/2024 11:23 PM FOOTWEAR SALES LEADER [facility] [address] [place], [place] [address] EXAMINATION: CT Abdomen/Pelvis without INDICATION: Patient complains [...] right renal pelvis resulting in mild calyectasis. Additional bilateral sub-9 mm nonobstructing renal calculi. Abdominal Wall: Normal. Stomach: Normal. Large and Small Bowel: No abnormally distended loops of bowel to suggest bowel obstruction. Overall mild-moderate stool burden. Appendix: Normal. Mesentery: Normal. Free Fluid: None. Lymph Nodes: No adenopathy by imaging size criteria. Vasculature: Aortobiiliac atherosclerosis without aneurysmal dilatation. Urinary Bladder: Normal. Uterus and Adnexa: Beam hardening artifact from hip prostheses limits evaluation. No gross abnormality. Visualized Osseous Structures: Prior bilateral total hip arthroplasties with hardware producing beam hardening artifact limiting evaluation of adjacent structures. Vertebral body hemangiomas at T10 and T12. Procedure Note Inge Guzman MD - 04/13/[address] [address] EXAMINATION: CT Abdomen/Pelvis without INDICATION: Patient complains [...] lt * (ABNORMAL) URINALYSIS (04/13/2024 10:23 PM FOOTWEAR SALES LEADER) SPECIMEN TYPE URINE CLEAN CATCH 04/13/2024 10:23 PM FOOTWEAR SALES LEADER [facility] COLOR (U) LIGHT YELLOW 04/13/2024 10:48 PM [facility] TRANSPARENCY CLEAR 04/13/2024 10:48 PM [facility] SPECIFIC GRAVITY (U) 1.013 1.001 - 1.030 04/13/2024 10:48 PM [facility] U PH 7.0 5.0 - 9.0 04/13/2024 10:48 PM [facility] LEUKOCYTES (U) 250(A) NEGATIVE 04/13/2024 10:48 PM [facility] NITRITES NEGATIVE NEGATIVE 04/13/2024 10:48 PM [facility] PROTEIN RANDOM (U) NEGATIVE <30 MG/DL 04/13/2024 10:48 PM [facility] GLUCOSE (U) NORMAL NORMAL MG/DL 04/13/2024 10:48 PM [facility] KETONES MG/DL (U) NEGATIVE NEGATIVE MG/DL 04/13/2024 10:48 PM [facility] UROBILINOGEN NORMAL NORMAL MG/DL 04/13/2024 10:48 PM [facility] BILIRUBIN (U) NEGATIVE NEGATIVE MG/DL 04/13/2024 10:48 PM [facility] BLOOD (U) TRACE(A) NEGATIVE 04/13/2024 10:48 PM [facility] MUCUS RARE /LPF 04/13/2024 10:48 PM [facility] WBC/HPF 19(H) <6 /HPF 04/13/2024 10:48 PM [facility] RBC/HPF 10(H) <6 /HPF 04/13/2024 10:48 PM [facility] SQUAMOUS EPITHELIALS RARE /HPF 04/13/2024 10:48 PM FOOTWEAR SALES LEADER [facility] URINE SPECIMEN OBTAINED BY CLEAN CATCH PROCEDURE / Unknown 04/13/2024 10:23 PM FOOTWEAR SALES LEADER us Demetrius Todd MD,PHD URINE ORDERABLES Final Res ult [facility] [address] [place] [address], * COLONOSCOPY (10/17/2017) us Documents Scanned SCANNING Final Result * MAMMOGRAM (08/17/2017) Anatomical Region Laterality Modality Other us Documents Scanned SCANNING Final Result from Last 3 Months or Most Recently Relevant to Health Maintenance Insurance MEDICARE [facility] Care Teams Mechanical Technologist Relationship Specialty Start Date End Date Aleshia Winston MD [address] [address] PCP - General FAMILY PRACTICE 03/19/24
--- OUTSIDE RECORDS SUMMARY | 2024-06-29 12:32 | XMS_ITS | Referral Summary ---
Author Organization [facility] Address [address] [place] [address] Care Team Providers Care Estate Agent Name Role Phone Safia Romano MD Unavailable [phone] Aleshia Winston MD Primary Care Provider [phone] Allergies Active Allergy Reactions Criticality Noted Date [...] 1 tablet (2,000 Units total) by mouth early childhood specialist before breakfast 9 Active lamoTRIgine (LaMICtal) 200 mg tabletIndicatio ns:Depression associated with Bipolar Disorder Take 1 tablet (200 mg total) by mouth nightly at bedtime. 1 9 Active FLUoxetine (PROzac) 20 mg capsule Take 1 capsule (20 mg total) by mouth early childhood specialist before breakfast Active atorvastatin (LIPITOR) 40 mg [...] (05/26/2021): Added automatically from request for surgery [id number] Acute glaucoma of right eye 02/09/2021 Acute kidney injury 02/09/2021 Depression 02/09/2021 Borderline type 2 diabetes mellitus 02/09/2021 Closed dislocation of left hip 02/09/2021 Controlled restless legs syndrome 02/09/2021 Diabetes mellitus with stage 1 chronic kidney disease ([facility]/HCC) 02/09/2021 Fall injury while running 02/09/2021 History of total right hip replacement Hyperleukocytosis 02/09/2021 Increasing frequency of seizure activity 021 Migraine without status migrainosus, not intract able 02/09/2021 Neuropathy of left hand 02/09/2021 Normocytic anemia 02/09/2021 Opioid use 02/09/2021 Well child examination 02/09/2021 Hip joint instability, left 10/27/2020 Overview (10/27/2020): Added automatically from request for surgery [id number] Osteoarthritis of left hip 06/08/2018 Bilateral groin [...] on file Legal Sex Female 2:28 AM EVP AND CHIEF OPERATING OFFICER Gender Identity Female 05/27/2021 1:46 PM EVP AND CHIEF OPERATING OFFICER Sexual Orientation Not on file Occupation Industry Job Start Date Job End Date disabled Not on file Not on file Not on file Last Filed Vital Signs Vital Sign Reading Time Taken Comments Blood Pressure 127/79 06/18/2021 4:56 PM EVP AND CHIEF OPERATING OFFICER Pulse 90 06/18/2021 4:56 PM EVP AND CHIEF OPERATING OFFICER Temperature 36.4 C (97.5 F) 06/18/2021 4:56 PM EVP AND CHIEF OPERATING OFFICER Respiratory Rate 16 06/18/2021 4:56 PM EVP AND CHIEF OPERATING OFFICER Oxygen Saturation 94% 06/18/2021 4:56 PM EVP AND CHIEF OPERATING OFFICER Inhaled Oxygen Concentration - - Weight 85.8 kg (189 lb 3.2 oz) 06/17/2021 8:08 A M EVP AND CHIEF OPERATING OFFICER Height 175.3 cm (5' 9 ) 06/17/2021 8:08 AM EVP AND CHIEF OPERATING OFFICER Body Mass Index 27.94 06/17/2021 8:08 AM EVP AND CHIEF OPERATING OFFICER Plan of Treatment Not on file Medical Devices Implanted Type Area Rn Iv Therapy Device Identifier Shelf Expiration Date Model / Serial / Lot Hip Bilateral : Hip Wrist Left: Wrist Description:Screws [employer]/ Ortho [id number] Or3o 40mm 22mm 2 Mobility Insert Acetabular Xlpe - [id number] Implanted:Qty: 1 on 06/17/2021 by Nate Little MD at [facility] Left: Hip [employer]/Or tho [id number] 09/30/2030 [id number] / / [id number] [employer]/ Ortho [id number] Or3o 40mm 2 Mobility Liner Acetabular - [id number] Implanted:Qty: 1 on 06/17/2021 by Nate Little MD at [facility] Left: Hip [employer]/Or tho [id number] 10/06/2030 [id number] / / [id number] [employer]/ Ortho [id number] 22mm Hip +8mm 12/14 Head Femoral Oxinium - [id number] Implanted:Qty: 1 on 06/17/2021 by Nate Little MD at [facility] Left: Hip [employer]/Or tho [id number] 01/03/2031 [id number] / / [id number] Procedures Procedure Name Priority Date/Time Associated Diagnosis Comments SCREENING MAMMOGRAM BILATERAL W KP Schedule Routine, Read Routine (OP Routine) 02/20/2024 2:55 PM CDT Encounter for screening mammogram for malignant neoplasm of breast EGFR Routine 06/18/2021 3:01 AM EVP AND CHIEF OPERATING OFFICER HEMOGLOBIN A1C Routine 10/01/2020 7:34 AM [...] age 40, based on guidelines of the [place] [employer] (ACR Practice Parameter for the Performance of Screening and Diagnostic Mammography) and [place] [employer]. For women [...] Res ult * eGFR (06/18/2021 3:01 AM EVP AND CHIEF OPERATING OFFICER) eGFR 75 mL/min/1. 73 m2 [facility] Comment: Interpretive Data Reference Interval Normal >/= [...] last reviewed 2021. Blood 06/18/2021 3:01 AM EVP AND CHIEF OPERATING OFFICER 06/18/2021 3:03 AM EVP AND CHIEF OPERATING OFFICER us Rik San MD LAB BLOOD ORDERABLES Final Result [facility] [address] [facility]. Department [place] [address] * (ABNORMAL) Hemoglobin A1c (10/01/2020 7:34 AM CDT) Hemoglobin A1c % 5.7(H) 4.0 - 5.6 % [facility] Comment: ADA 2016 GUIDELINES: Initial Diagnostic Criteria HbA1c Result: Interpretation: <5.7% Normal 5.7-6.4% At risk for diabetes mellitus >=6.5% Consistent with diabetes mellitus Diabetes monitoring Target value (ADA Recommended) <7% 10/01/2020 7:34 AM CDT 10/01/2020 7:44 AM CDT Narrative Resulting Agency Comment IN us Jaun Evangelista MD LAB BLOOD ORDERABLES Final Result Performing Organization Address City/[facility]/ZIP Co de Phone Number [facility] [address] [phone] * Lipid panel (10/01/2020 7:34 AM CDT) Triglycerides 106 0 - 149 mg/dL [facility] Comment: National Lipid Association/NCEP Guidelines: Normal < 150 mg/dL Borderline high 150-199 mg/dL High 200-499 mg/dL Very High >=500 mg/dL Cholesterol 133 0 - 199 mg/dL [facility] Comment: National Lipid Association/NCEP Guidelines: Desirable < 200 mg/dL Borderline high: 200-239 mg/dL High Risk: >=240 mg/dL HDL Cholesterol 44 mg/dL [facility] Comment: Reference Ranges: Males: >=40 mg/dL Females: >=50 mg/dL LDL Cholesterol, Calc 68 0 - 129 mg/dL [facility] Comment: National Lipid Association/NCEP Guidelines: Optimal < 100 mg/dL Near Optimal 100-129 mg/dL Borderline high 130-159 mg/dL High >=160 mg/dL Cholesterol/HDL Ratio 3.0 [facility] Comment: Optimal < 3.5:1 High > 5:1 10/01/2020 7:34 AM CDT 10/01/2020 7:44 AM CDT Narrative Resulting Agency Comment IN us Jaun Evangelista MD LAB BLOOD ORDERABLES Final Result [facility] [address] [place] [address], [facility] [phone] from Last 3 Months or Most Recently Relevant to Health Maintenance Insurance MEDICARE [facility] PLUS [facility] H[facility]/PPO Address: [address] [address] [place] [address] MEDICARE [facility] CHO[facility] PL[facility] H[facility]/PPO Address: [address] [address] [place] [address] MEDICARE [facility] CHOICE PLUS [facility] H[facility]/PPO Address: [facility] [address] [place] [address] Advance Directives For more information, please contact: [phone] * Full Code (Latest Code Status on File) Date Activated Date Inactivated Comments 06/17/2021 12:53 PM 06/18/2021 9:57 PM Care Teams Estate Agent Relationship Specialty Start Date End Date Aleshia Winston MD [address] [address] PCP - General Family Medicine 06/14/24 Safia Romano MD Consulting Physician Obstetrics and Gynecology 10/06/21
--- OUTSIDE RECORDS SUMMARY | 2024-06-29 12:32 | XMS_ITS | Clinical Summary ---
Author Organization [facility] Care Team Providers Care Temporary Administrative Assistant Name Role Phone Unavailable Primary Care Provider [...]
[2024-06-29 13:10] LABS: INR 0.9; Prothrombin Time 12.6 Seconds (11.1-14.7)
[2024-06-29 13:11] LABS: Partial Thromboplastin Time 26.6 Seconds (22.3-36.8)
== END 2024-06-29 12:26 | disposition home or self-care (01) ==
LOC: ANHSURGERY 12:29
PROVIDERS: PCP Family Medicine; Visit Provider Urology
DX: N20.0 Calculus of kidney (principal)
CPT/HCPCS: 36415; 85610; 85730; 87086; 87181

== ENCOUNTER 2024-07-06 00:09 | Day surgery (SDC) | payer OTHER, MEDICARE, SELFPAY ==
[2024-06-27 17:10] VITALS: BMI 26.1
--- NOTE | 2024-06-27 17:21 | PC.NURSE ---
Report to the Outpatient Waiting Room, entrance under the green pavilion located off [facility], at time _0630_ on date 07/06/24_. Planned Procedure Time: _0830.? Time changes happen often and if your time is changed the preop area will call you the afternoon before. - You and your visitor will be asked to self-screen and do not enter if you have any COVID symptoms. Please call surgeon if you need to reschedule. - A mask is optional within the hospital at this time. Patients may have clear liquids (water, carbonated beverages, clear teas, apple juice) until 3 hours prior to surgery with a maximum of 20 ounces. - No food from midnight until time of surgery and no smoking, or chewing tobacco (or any form of nicotine). No chewing gum, candy or mints. - Infants may have breast milk until 4 hours before surgery, formula 6 hours prior to surgery. - Children will be allowed to drink immediately following surgery.? If applicable, please bring a bottle or sippy cup to assist with drinking. Juice, water, soda, and popsicles are readily available.? For infants on formula, please bring formula the day of surgery.? Pacifiers are allowed. Take only the following medications with a SIP of water on the morning of surgery: ___FLUOXETINE, ALPRAZOLAM DO NOT STOP ANY OF YOUR OTHER PRESCRIPTION MEDICATIONS PRIOR TO SURGERY EXCEPT THE FOLLOWING Hold all vitamins and supplements for 3 days per anesthesiologist. Please no make-up, nail yi, hairspray, perfume, deodorant, or body powder the day of surgery.? No jewelry (including any body piercings) or valuables the day of surgery, leave them at home.? Please take a shower or bath the night before, or the morning of, surgery with an antibacterial soap.? Wear comfortable, loose fitting clothing.? Children are encouraged to wear pajamas. - Jewelry must be removed prior to entering the operating room.? Rings and piercings that are not removed may be cut off. - The hospital will not accept responsibility for valuables.? - Please leave all valuables, including medications, at home the day of surgery. If you are going home after surgery, a licensed company truck driver must drive you home.? - NO public transportation without another adult if you receive anesthesia. - We recommend that an adult stay with you for 24 hours following discharge. - We also recommend that you do not drive, make important decision, drink alcoholic beverages, or take any drugs that were not prescribed by your health care provider for at least 24 hours after your discharge time. For Pediatric surgeries, we recommend two adults accompany the child home. Follow any additional instructions given to you from your surgeon. Telephone instructions given to PATIENT_and asked if any additional questions and then verbalized understanding. Patient advised to call surgeon office or pre surgery nurse liaison [phone] if any additional questions.
[2024-07-06] VITALS (8 sets, daily range): BP systolic 124–164; BP diastolic 78–95; PULSE 66–78; RESP 14–18; TEMP 36.2–36.6; O2SAT 92–99; BMI 26.8
[2024-07-06] MEDS: LACTATED RINGERS 1,000 ML 30 ML IV CONT ×2 (07:15→08:35)
--- NOTE | 2024-07-06 07:25 | PM.IMHP ---
H&P: HPI History of Present Illness Date/Time: 07/06/24 07:25 Chief Complaint: left renal calculus Narrative: 59 yr old female with left renal calculus Review of Systems Review of Systems: All systems reviewed & are unremarkable except as noted in HPI and below [facility] Social History Social History Smoking status: Never smoker Alcohol intake: current Alcohol use details: RARE USE Living arrangements: with family Spiritual care concerns: No Meds Home Medications and Allergies Home Medications ?Medication ?Instructions ?Recorded ?Confirmed ?Type alprazolam 1 mg tablet 1 mg PO TID 04/16/24 06/27/24 History atorvastatin 40 mg tablet 40 mg PO QPM 04/16/24 06/27/24 History calcium 600 mg capsule 600 mg PO DAILY 04/16/24 06/27/24 History cholecalciferol (vitamin D3) 25 25 mcg PO DAILY 04/16/24 06/27/24 History mcg (1,000 unit) capsule (Vitamin D3) estradiol 0.05 mg/24 hr semiweekly 0.05 mg topical 2XW 04/16/24 06/27/24 History transdermal patch fluoxetine 20 mg capsule 20 mg PO DAILY 04/16/24 06/27/24 History lamotrigine 200 mg tablet 200 mg PO HS 04/16/24 06/27/24 History knoclbdk-tyck-yal-folic acid 18 1 tablet PO DAILY 04/16/24 06/27/24 History mg-0.4 mg tablet (One Daily For Women) olanzapine 20 mg tablet 20 mg PO HS 04/16/24 06/27/24 History progesterone micronized 100 mg 100 mg PO HS 04/16/24 06/27/24 History capsule sumatriptan succinate 100 mg tablet 100 mg PO DAILY PRN Migraine 04/16/24 06/27/24 History Headache Allergies Allergy/AdvReac Type Severity Reaction Status Date / Time No Known Allergies Allergy Verified 07/06/24 07:24 Exam Const: General: cooperative and comfortable Resp: Effort & Inspection: normal respiratory effort Cardio: Rate: regular rate Rhythm: regular rhythm Assessment and Plan Assessment and plan (1) Left renal stone: Code(s): N20.0 - Calculus of kidney Status: Acute Assessment and Plan: Proceed with left renal eswl, cystoscopy with left retrograde, left stent placement.
--- NOTE | 2024-07-06 07:27 | WPDHPUPDATE1 ---
History and Physical Update Update Date/Time: 07/06/24 07:27 History and Physical has been reviewed, including an updated exam of the patient. There are NO changes in the patient's condition. Risks, benefits, and alternatives have been discussed and questions answered. Patient agrees to proceed with procedure.
--- NOTE | 2024-07-06 07:29 | WPDANESEPPF ---
Anes - Initial Pre Proc Eval Procedure: Operation Date: 07/06/24 08:30 Proposed Procedures p Left Extracorporeal Shock Wave Lithotripsy - Kali Mcgee MD s Cystoscopy with Left Retrograde Pyelogram, Left Stent Placement - Kali Mcgee MD Date/Time: 07/06/24 07:29 Surgeon: Kali Mcgee MD Pre Op Diagnosis: Left Renal Stone Patient Data Age: 59 Gender: F Height: 1.73 m Weight: 78 kg Allergies Allergy/AdvReac Type Severity Reaction Status Date / Time No Known Allergies Allergy Verified 07/06/24 07:24 Home Medications ?Medication ?Instructions ?Recorded ?Confirmed ?Type alprazolam 1 mg tablet 1 mg PO TID 04/16/24 07/06/24 History atorvastatin 40 mg tablet 40 mg PO QPM 04/16/24 07/06/24 History calcium 600 mg capsule 600 mg PO DAILY 04/16/24 07/06/24 History cholecalciferol (vitamin D3) 25 25 mcg PO DAILY 04/16/24 07/06/24 History mcg (1,000 unit) capsule (Vitamin D3) estradiol 0.05 mg/24 hr semiweekly 0.05 mg topical 2XW 04/16/24 06/27/24 History transdermal patch fluoxetine 20 mg capsule 20 mg PO DAILY 04/16/24 07/06/24 History lamotrigine 200 mg tablet 200 mg PO HS 04/16/24 07/06/24 History oejokhha-tfgc-ruh-folic acid 18 1 tablet PO DAILY 04/16/24 07/06/24 History mg-0.4 mg tablet (One Daily For Women) olanzapine 20 mg tablet 20 mg PO HS 04/16/24 07/06/24 History progesterone micronized 100 mg 100 mg PO HS 04/16/24 07/06/24 History capsule sumatriptan succinate 100 mg tablet 100 mg PO DAILY PRN Migraine 04/16/24 06/27/24 History Headache Patient hx anesthesia problems: none Family hx anesthesia problems: none Results Review: All pre-operative results and documents have been reviewed as part of the pre-operative evaluation. [facility] Social History Social History Smoking status: Never smoker Alcohol intake: current Alcohol use details: RARE USE Living arrangements: with family Spiritual care concerns: No Anes - Eval Final PreProcedure Day of Procedure 07/06/24 07:29 Patient weight: overweight Lungs: normal air movement Airway: Mallampati scale class II Neurological: alert and oriented Last oral intake: >/= 8 hours ASA classification: II Emergent: no Anesthetic plan: proceed Anesthesia type and monitoring: general LMA and standard monitoring Results Review: All pre-operative results and documents have been reviewed as part of the pre-operative evaluation. Hyperlipidemia. Informed Consent: The patient's anesthetic plan and its attendant risks and benefits were discussed with the patient/family/POA. Questions were solicited and answers provided to the satisfaction of the patient/family/POA.
[2024-07-06] MEDS: ceFAZolin 2 GM/D5W 50 ML 2 GM/50 ML BAG IVPB (07:45)
--- NOTE | 2024-07-06 08:27 | W.PM.PROC2 ---
Procedure Note - Detailed Date of Procedure 07/06/24 Pre-op Diagnosis Left Renal Stone Post-op Diagnosis Same Procedure Performed Cystoscopy, left retrograde pyelogram, left ureteral stent placement 4.8 Hong [place]er contour stent, left renal lithotripsy Surgeon Kali Mcgee MD Anesthesia General Description of Procedure Patient was taken the operative suite correctly identified. Once anesthesia was obtained she was frog-legged prepped and draped usual sterile fashion. Sixteen Hong Konger scope was inserted into the urethra. No tumors were noted. Left ureteral orifice was cannulated with a guidewire. Ureteral catheter was then passed over the wire. Pyelogram was performed. The stones are in calices that have very narrow long infundibulum I. They appeared to be in separate calyces. I then placed a 4.8 [place]er contour stent with the proximal end coiled in the renal pelvis and the distal in the bladder. Two thousand five hundred shocks were given to the 1 stone. It took all 2500 shocks. We will have to see what she is able to pass. If this is unsuccessful and she is asymptomatic we may just simply recommend conservative management as it will be quite a challenge to deal with these stones. Patient was taken recovery stable condition. This completes dictation. Please send a copy of op note to my office Estimated Blood Loss 0 Drains Yes Packing No Pathology None sent Complications No immediate complications Condition Stable Disposition PACU
[2024-07-06] MEDS: oxyCODONE HCL (*CRX) 5 MG TAB IR PO (09:40)
[2024-07-06] MEDS: ONDANSETRON INJ 4 MG/2 ML VIAL IV PUSH (09:40)
== END 2024-07-06 10:30 | disposition home or self-care (01) ==
PROVIDERS: PCP Family Medicine; Visit Provider Urology
PROC: (CPT 50590; principal; 2024-07-06 08:30)
PROC: (CPT 52352; 2024-07-06 08:30)
DX: N20.0 Calculus of kidney (principal)
CPT/HCPCS: 52356; 74018; A9270; C1758; C1769; C2617; J0690; J1100; J2003; J2250; J2405; J2704; J3010; J7120; Q9966

== ENCOUNTER 2024-07-18 12:45 | Outpatient (CLI) | payer MEDICARE, OTHER, SELFPAY ==
--- NOTE | ~2024-07-18 | XR_ITS ---
XR abdomen/kub 1V Ordering provider: Kali Mcgee MD History: . Calcium kidney stone . Comparison: July 06, 2024 FINDINGS: BOWEL: Nonobstructive bowel gas pattern. ORGANOMEGALY: None. SIGNIFICANT PATHOLOGIC CALCIFICATIONS: Left kidney stones with left double-J stent. OTHER: No free air is seen under the diaphragm. Bilateral hip arthroplasty. IMPRESSION: NO ACUTE ABDOMINAL FINDINGS. Left kidney stones. Left double-J stent. Reviewed, dictated and finalized at location A.
--- OUTSIDE RECORDS SUMMARY | 2024-07-18 14:01 | XMS_ITS | Referral Summary ---
Author Organization [facility] Address [address] [place] [address] Care Team Providers Care Grain Oilseed Or Pasture Grower Name Role Phone Safia Romano MD Unavailable [phone] Aleshia Winston MD Primary Care Provider [phone] Allergies Active Allergy Reactions Criticality Noted Date [...] 1 tablet (2,000 Units total) by mouth camp housekeeper before breakfast 9 Active lamoTRIgine (LaMICtal) 200 mg tabletIndicatio ns:Depression associated with Bipolar Disorder Take 1 tablet (200 mg total) by mouth nightly at bedtime. 1 9 Active FLUoxetine (PROzac) 20 mg capsule Take 1 capsule (20 mg total) by mouth camp housekeeper before breakfast Active atorvastatin (LIPITOR) 40 mg [...] (05/26/2021): Added automatically from request for surgery [id number] Acute glaucoma of right eye 02/09/2021 Acute kidney injury 02/09/2021 Depression 02/09/2021 Borderline type 2 diabetes mellitus 02/09/2021 Closed dislocation of left hip 02/09/2021 Controlled restless legs syndrome 02/09/2021 Diabetes mellitus with stage 1 chronic kidney di sease 02/09/2021 Fall injury while running 02/09/2021 History of total right hip replacement Hyperleukocytosis 02/09/2021 Increasing frequency of seizure activity 021 Migraine without status migrainosus, not intract able 02/09/2021 Neuropathy of left hand 02/09/2021 Normocytic anemia 02/09/2021 Opioid use 02/09/2021 Well child examination 02/09/2021 Hip joint instability, left 10/27/2020 Overview (10/27/2020): Added automatically from request for surgery [id number] Osteoarthritis of left hip 06/08/2018 Bilateral groin [...] on file Legal Sex Female 2:28 AM DELIVERY DRIVER/CUSTOMER SERVICE Gender Identity Female 05/27/2021 1:46 PM DELIVERY DRIVER/CUSTOMER SERVICE Sexual Orientation Not on file Occupation Industry Job Start Date Job End Date disabled Not on file Not on file Not on file Last Filed Vital Signs Vital Sign Reading Time Taken Comments Blood Pressure 127/79 06/18/2021 4:56 PM DELIVERY DRIVER/CUSTOMER SERVICE Pulse 90 06/18/2021 4:56 PM DELIVERY DRIVER/CUSTOMER SERVICE Temperature 36.4 C (97.5 F) 06/18/2021 4:56 PM DELIVERY DRIVER/CUSTOMER SERVICE Respiratory Rate 16 06/18/2021 4:56 PM DELIVERY DRIVER/CUSTOMER SERVICE Oxygen Saturation 94% 06/18/2021 4:56 PM DELIVERY DRIVER/CUSTOMER SERVICE Inhaled Oxygen Concentration - - Weight 85.8 kg (189 lb 3.2 oz) 06/17/2021 8:08 A M DELIVERY DRIVER/CUSTOMER SERVICE Height 175.3 cm (5' 9 ) 06/17/2021 8:08 AM DELIVERY DRIVER/CUSTOMER SERVICE Body Mass Index 27.94 06/17/2021 8:08 AM DELIVERY DRIVER/CUSTOMER SERVICE Plan of Treatment Not on file Medical Devices Implanted Type Area Gang Hemstitching Machine Operator Device Identifier Shelf Expiration Date Model / Serial / Lot Hip Bilateral : Hip Wrist Left: Wrist Description:Screws [employer]/ Ortho [id number] Or3o 40mm 22mm 2 Mobility Insert Acetabular Xlpe - [id number] Implanted:Qty: 1 on 06/17/2021 by Nate Little MD at [facility] Left: Hip [employer]/Or tho [id number] 09/30/2030 [id number] / / [id number] [employer]/ Ortho [id number] Or3o 40mm 2 Mobility Liner Acetabular - [id number] Implanted:Qty: 1 on 06/17/2021 by Ntae Little MD at [facility] Left: Hip [employer]/Or tho [id number] 10/06/2030 [id number] / / [id number] [employer]/ Ortho [id number] 22mm Hip +8mm 12/14 Head Femoral Oxinium - [id number] Implanted:Qty: 1 on 06/17/2021 by Nate Little MD at [facility] Left: Hip [employer]/Or tho [id number] 01/03/2031 [id number] / / [id number] Procedures Procedure Name Priority Date/Time Associated Diagnosis Comments SCREENING MAMMOGRAM BILATERAL W KP Schedule Routine, Read Routine (OP Routine) 02/20/2024 2:55 PM CDT Encounter for screening mammogram for malignant neoplasm of breast EGFR Routine 06/18/2021 3:01 AM DELIVERY DRIVER/CUSTOMER SERVICE HEMOGLOBIN A1C Routine 10/01/2020 7:34 AM CDT [...] age 40, based on guidelines of the [place] [employer] (ACR Practice Parameter for the Performance of Screening and Diagnostic Mammography) and [place] [employer]. For women [...] Res ult * eGFR (06/18/2021 3:01 AM DELIVERY DRIVER/CUSTOMER SERVICE) eGFR 75 mL/min/1. 73 m2 [facility] [...] last reviewed 2021. Blood 06/18/2021 3:01 AM DELIVERY DRIVER/CUSTOMER SERVICE 06/18/2021 3:03 AM DELIVERY DRIVER/CUSTOMER SERVICE us Rik San MD LAB BLOOD ORDERABLES Final Result [facility] [address] [facility]. [place] [address] * (ABNORMAL) Hemoglobin A1c (10/01/2020 7:34 AM CDT) Hemoglobin A1c % 5.7(H) 4.0 - 5.6 % [facility] Comment: ADA 2016 GUIDELINES: Initial Diagnostic Criteria HbA1c Result: Interpretation: <5.7% Normal 5.7-6.4% At risk for diabetes mellitus >=6.5% Consistent with diabetes mellitus Diabetes monitoring Target value (ADA Recommended) <7% 10/01/2020 7:34 AM CDT 10/01/2020 7:44 AM CDT Narrative Resulting Agency Comment IN us Jaun Evangelista MD LAB BLOOD ORDERABLES Final Result [place] [id number] [phone] * Lipid panel (10/01/2020 7:34 AM CDT) Triglycerides 106 0 - 149 mg/dL [facility] Comment: National Lipid Association/NCEP Guidelines: Normal < 150 mg/dL Borderline high 150-199 mg/dL High 200-499 mg/dL Very High >=500 mg/dL Cholesterol 133 0 - 199 mg/dL [facility] Comment: National Lipid Association/NCEP Guidelines: Desirable < 200 mg/dL Borderline high: 200-239 mg/dL High Risk: >=240 mg/dL HDL Cholesterol 44 mg/dL [facility] Comment: Reference Ranges: Males: >=40 mg/dL Females: >=50 mg/dL LDL Cholesterol, Calc 68 0 - 129 mg/dL [facility] Comment: National Lipid Association/NCEP Guidelines: Optimal < 100 mg/dL Near Optimal 100-129 mg/dL Borderline high 130-159 mg/dL High >=160 mg/dL Cholesterol/HDL Ratio 3.0 [facility] Comment: Optimal < 3.5:1 High > 5:1 10/01/2020 7:34 AM CDT 10/01/2020 7:44 AM CDT Narrative Resulting Agency Comment IN us Jaun Evangelista MD LAB BLOOD ORDERABLES Final Result [facility] [address] [place] [address], [facility] [phone] from Last 3 Months or Most Recently Relevant to Health Maintenance Insurance MEDIC[facility] CHOICE PL[facility] H[facility]/PPO Address: [address] [address] [place] [address] MEDICARE [facility] CHOICE PLUS [facility] H[facility]/PPO Address: [address] [address] [place] [address] MEDICARE [facility] CHOICE PLUS [facility] H[facility]/PPO Address: [facility] [address] [place] [address] Advance Directives For more information, please contact: [phone] * Full Code (Latest Code Status on File) Date Activated Date Inactivated Comments 06/17/2021 12:53 PM 06/18/2021 9:57 PM Care Teams Grain Oilseed Or Pasture Grower Relationship Specialty Start Date End Date Aleshia Winston MD [address] [address] PCP - General Family Medicine 06/14/24 Safia Romano MD Consulting Physician Obstetrics and Gynecology 10/06/21
--- OUTSIDE RECORDS SUMMARY | 2024-07-18 14:01 | XMS_ITS | Clinical Summary ---
Author Organization [facility] Address [address] [place] [address] Care Team Providers Care Teacher Early Childhood Development Name Role Phone Aleshia Winston MD Primary Care Provider [phone] Allergies Active Allergy Reactions Criticality Noted Date [...] disease) stage 3, GFR 30-59 ml/min 02/27/2018 Hip pain, right 11/30/2017 Serum creatinine raised 09/21/2017 Cellulitis, gluteal, left 09/12/2017 Costochondritis 10/09/2015 Dysuria 10/09/2015 Bipolar disorder ([facility]) 10/03/2014 Contact dermatitis 10/03/2014 Hyperlipidemia 01/11/2012 Immunizations Name Administration Dates Next Due Flucelvax [...] Comments Blood Pressure 139/98 04/14/2024 1:46 AM [facility] Pulse 89 04/14/2024 1:46 AM [employer] Temperature 36.8 C (98.2 F) 04/13/2024 9:27 PM [employer] Respiratory Rate 16 04/13/2024 9:27 PM [employer] Oxygen Saturation 94% 04/14/2024 1:46 AM [employer] Inhaled Oxygen Concentration - - Weight 74.4 kg (164 lb) 04/13/2024 9:27 PM [employer] Height 172.7 cm (5' 8 ) 04/13/2024 9:27 PM [employer] Body Mass Index 24.94 04/13/2024 9:27 PM [employer] Plan of Treatment Health Maintenance Due Date [...] Procedure Name Priority Date/Time Associated Diagnosis Comments COLONOSCOPY GENERIC (SCAN ORDER) Routine 10/17/2017 MAMMOGRAM GENERIC (SCAN ORDER) Routine 08/17/2017 from Last 3 Months or Most Recently Relevant to Health Maintenance Results * COLONOSCOPY (10/17/2017) us Documents Scanned SCANNING Final Result * MAMMOGRAM (08/17/2017) Anatomical Region Laterality Modality Other us Documents Scanned SCANNING Final Result from Last 3 Months or Most Recently Relevant to Health Maintenance Insurance [facility]ARE [facility] Care Teams Teacher Early Childhood Development Relationship Specialty Start Date End Date Aleshia Winston MD [address] [id number] PCP - General FAMILY PRACTICE 03/19/24
--- OUTSIDE RECORDS SUMMARY | 2024-07-18 14:01 | XMS_ITS | Clinical Summary ---
Author Organization [facility] Address [address] [place] [id number] Care Team Providers Care Foreign Food Cook Specialty Name Role Phone Safia Romano MD Unavailable [phone] Aleshia Winston MD Primary Care Provider Allergies [...] (2,000 Units total) by mouth early childhood education coordinator before breakfast 9 Active lamoTRIgine (LaMICtal) 200 mg tabletIndicatio ns:Depression associated with Bipolar Disorder Take 1 tablet (200 mg total) by mouth nightly at bedtime. 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 Acute [...] (10/27/2020): Added automatically from request for surgery [id number] Osteoarthritis of left hip 06/08/2018 Bilateral groin [...] - (Added by TW Conv) Asthma Cancer (HCC) Depression Hypercholesteremia Hypertension Migraines Osteoarthritis Closed [...] on file Legal Sex Female 2:28 AM COST COORDINATOR Gender Identity Female 05/27/2021 1:46 PM COST COORDINATOR Sexual Orientation Not on file Occupation Industry Job Start Date Job End Date disabled Not on file Not on file Not on file Obstetrics History Para Term AB IAB SAB Ectopic Multiple Livin g Live Births 0 0 0 0 0 0 0 0 0 0 0 Last Filed Vital Signs Vital Sign Reading Time Taken Comments Blood Pressure 127/79 06/18/2021 4:56 PM COST COORDINATOR Pulse 90 06/18/2021 4:56 PM COST COORDINATOR Temperature 36.4 C (97.5 F) 06/18/2021 4:56 PM COST COORDINATOR Respiratory Rate 16 06/18/2021 4:56 PM COST COORDINATOR Oxygen Saturation 94% 06/18/2021 4:56 PM COST COORDINATOR Inhaled Oxygen Concentration - - Weight 85.8 kg (189 lb 3.2 oz) 06/17/2021 8:08 A M COST COORDINATOR Height 175.3 cm (5' 9 ) 06/17/2021 8:08 AM COST COORDINATOR Body Mass Index 27.94 06/17/2021 8:08 AM COST COORDINATOR Plan of Treatment Health Maintenance Due Date [...] of 2) 01/21/2014 Hemoglobin A1C 04/03/2021 10/01/2020, 0210/2019, 09/07/2015 Lipid Panel 10/01/2021 10/01/2020, 02/08, 09/07/2015 eGFR 06/18/2022 06/18/2021, 06/04/2021 Covid-19 Vaccine (4 - 2023-2 5 season) 2024 05/19/2021, 09/01/2020, 08/11/2020 Influenza Vaccine (#1) 2024 01/08/2021, 2019 Breast Cancer Screening-Mammogram 02/19/2025 02/20/2024, 02/15/2023, 10/06/2021, Additional history exists Medical Devices Implanted Type Area Bellman Captain Device Identifier Shelf Expiration Date Model / Serial / Lot Hip Bilateral : Hip Wrist Left: Wrist Description:Screws [employer]/ Ortho [id number] 40mm 22mm 2 Mobility Insert Acetabular Xlpe - [id number] Implanted:Qty: 1 on 06/17/2021 by Nate Little MD at [facility] Left: Hip [employer]Or tho [id number] 09/30/2030 [id number] / / [id number] [employer]/ Ortho [id number] Or3o 40mm 2 Mobility Liner Acetabular - [id number] Implanted:Qty: 1 on 06/17/2021 by Nate Little MD at [facility] Left: Hip [employer]Or tho [id number] 10/06/2030 [id number] / / [id number] [employer]/ Ortho [id number] 22mm Hip +8mm 12/14 Head Femoral Oxinium - [id number] Implanted:Qty: 1 on 06/17/2021 by Nate Little MD at [facility] Left: Hip [employer]Or tho [id number] 01/03/2031 [id number] / / [id number] Procedures Procedure Name Priority Date/Time Associated Diagnosis Comments SCREENING MAMMOGRAM BILATERAL W KP Schedule Routine, Read Routine (OP Routine) 02/20/2024 2:55 PM CDT Encounter for screening mammogram for malignant neoplasm of breast EGFR Routine 06/18/2021 3:01 AM COST COORDINATOR HEMOGLOBIN A1C Routine 10/01/2020 7:34 AM CDT [...] age 40, based on guidelines of the [place] [employer] (ACR Practice Parameter for the Performance of Screening and Diagnostic Mammography) and [place] [employer]. For women [...] Res ult * eGFR (06/18/2021 3:01 AM COST COORDINATOR) eGFR 75 mL/min/1. 73 m2 [facility] Comment: Interpretive Data Reference Interval Normal >/= [...] last reviewed 2021. Blood 06/18/2021 3:01 AM COST COORDINATOR 06/18/2021 3:03 AM COST COORDINATOR Rik San MD LAB BLOOD ORDERABLES Final Result [facility] [address] [facility] Department [place] [address] * (ABNORMAL) Hemoglobin A1c (10/01/2020 7:34 AM CDT) Hemoglobin A1c % 5.7(H) 4.0 - 5.6 % [facility] Comment: ADA 2016 GUIDELINES: Initial Diagnostic Criteria HbA1c Result: Interpretation: <5.7% Normal 5.7-6.4% At risk for diabetes mellitus >=6.5% Consistent with diabetes mellitus Diabetes monitoring Target value (ADA Recommended) <7% 10/01/2020 7:34 AM CDT 10/01/2020 7:44 AM CDT Narrative Resulting Agency Comment IN us Jaun Evangelista MD LAB BLOOD ORDERABLES Final Result [facility] [address] [phone] * Lipid panel (10/01/2020 7:34 AM CDT) Triglycerides 106 0 - 149 mg/dL [facility] Comment: National Lipid Association/NCEP Guidelines: Normal < 150 mg/dL Borderline high 150-199 mg/dL High 200-499 mg/dL Very High >=500 mg/dL Cholesterol 133 0 - 199 mg/dL [facility] Comment: National Lipid Association/NCEP Guidelines: Desirable < 200 mg/dL Borderline high: 200-239 mg/dL High Risk: >=240 mg/dL HDL Cholesterol 44 mg/dL [facility] Comment: Reference Ranges: Males: >=40 mg/dL Females: >=50 mg/dL LDL Cholesterol, Calc 68 0 - 129 mg/dL [facility] Comment: National Lipid Association/NCEP Guidelines: Optimal < 100 mg/dL Near Optimal 100-129 mg/dL Borderline high 130-159 mg/dL High >=160 mg/dL Cholesterol/HDL Ratio 3.0 [facility] Comment: Optimal < 3.5:1 High > 5:1 10/01/2020 7:34 AM CDT 10/01/2020 7:44 AM CDT Narrative Resulting Agency Comment IN us Jaun Evangelista MD LAB BLOOD ORDERABLES Final Result [facility] [address] [place] [address], [facility] [phone] from Last 3 Months or Most Recently Relevant to Health Maintenance Insurance MEDICARE [facility] CHOICE PLUS MEDICARE [facility] CHOICE PLUS MEDICARE [facility] CHOICE PLUS Advance Directives For more information, please contact: [phone] * Full Code (Latest Code Status on File) Date Activated Date Inactivated Comments 06/17/2021 12:53 PM 06/18/2021 9:57 PM Care Teams Foreign Food Cook Specialty Relationship Specialty Start Date End Date Aleshia Winston MD [address] [address] PCP - General Family Medicine 06/14/24 Safia Romano MD Consulting Physician Obstetrics and Gynecology 10/06/21
--- OUTSIDE RECORDS SUMMARY | 2024-07-18 14:01 | XMS_ITS | Clinical Summary ---
Author Organization [facility] Care Team Providers Care Intensive Care Unit Nurse Name Role Phone Unavailable Primary Care Provider [...]
--- OUTSIDE RECORDS SUMMARY | 2024-07-18 14:01 | XMS_ITS | Data Portability ---
Author Organization [employer] , [facility] Address [address] [place] [address] Assessment No assessment recorded. Plan of Treatment Reminders Order Date Submit Date Provider Last Modified By Organization Details Last Modified Time Details Appointments None recorded. Lab pap, LB 2023 024 [employer], [address] [place], [address], 4 15:52:32 HPV E6+E7 mRNA, qualitative PCR, cervix 2023 024 [facility], [address] [place], [address], 4 09:20:56 HPV E6+E7 mRNA, qualitative PCR, cervix 2021 022 [employer] [facility], [address] [place], [address], 2 15:47:18 pap, LB 2021 022 [employer], [address] [place], [address], 2 17:53:52 Referral None recorded. Procedures None recorded. Surgeries None recorded. Imaging MAMMO, screening, digital, bilateral 2023 024 [facility], [address] [place], [address], 4 16:10:06 MAMMO, screening, digital, bilateral 2021 022 [facility], [address] , [place], [address], 13:43:56 Medication Orders Estrace 0.01% (0.1 mg/gram) vaginal cream 2023 024 [id number], [address], [place], [address], 4 15:43:42 Prometrium 100 mg capsule 2023 024 [id number], [address], [place], [address], 4 15:43:41 Vivelle-Dot 0.05 mg/24 hr transdermal patch 2023 024 [id number], [address], [place], [address], 4 15:43:43 Patient TargetsNo targets recorded. Patient Instructions Encounter Date Encounter Id Patient Instructions Last Modified By Organization Details Last Modified Time 03/18/2022 [id number] A healthy lifestyle: care instructions Not available 03/18/2022 13:54:44 substance use disorder: care instructions Not available 03/18/2022 13:54:44 tobacco cessation Not availabl e 03/18/2022 13:54:44 calcium and vitamin D combination Not available 03/18/2022 13:54:44 depression (wome n only) Not available 03/18/2022 13:54:44 eating healthy foods: care instructions Not available 03/18/2022 13:54:44 exercise program : getting started Not available 03/18/2022 13:54:44 12/27/2023 [id number] body mass index: care instructions Not available [...] l cervi darren cytol ogy. Not Available [facility] [address] [place], [address], 03/19/2022 15:47:18 03/18/2003/23/2022 THINP REP TIS PAP clinical information: normal None given Not Available [employer] [address] [place], [address], 03/23/2022 17:53:52 03/18/20 22 03/23/2022 THINP REP TIS PAP LMP: normal NONE GIVEN Not Available [employer] [address], [address], 03/23/2022 17:53:52 03/18/20 22 03/23/2022 THINP REP TIS PAP prev. Pap: normal NONE GIVEN Not Available [employer] [address] [place], [address], 03/23/2022 17:53:52 03/18/20 22 03/23/2022 THINP REP TIS PAP prev. BX: normal NONE GIVEN Not Available [employer] [address] [place], [address], 03/23/2022 17:53:52 03/18/20 22 03/23/2022 THINP REP TIS PAP source: normal Cervi x Not Available [employer] [facility] [address] [place], [address], 03/23/2022 17:53:52 03/18/20 22 03/23/2022 THINP REP TIS PAP statement of adequacy: normal SATIS FACTO RY FOR EVALU ATION Not Available [address] [address] [place], [address], 03/23/2022 17:53:52 03/18/20 22 03/23/2022 THINP REP TIS PAP interpretati on/result: Negat blue for intra epith elial lesio n or malbelen sernacy . Atrop [place] boss rn; predo amina galan parab ronda cells Not Available [address] [address] [place], [address], 03/23/2022 17:53:52 03/18/20 22 03/23/2022 THINP REP TIS PAP comment: normal This Pap test has been evalu ated with compu ter jose ramiro techn ology . Not Available [address] [address] [place], [address], 03/23/2022 17:53:52 03/18/20 22 03/23/2022 THINP REP TIS PAP cytotechnolo gist: normal XUAN, CT( CP) CT scree alayna locat ion: [place] [address] [place] [address] Not Available [address] [address] [place], [address], 03/23/2022 17:53:52 03/18/20 22 03/23/2022 THINP REP [...] clini darren infor dilcia n. Not Available [address] [place], [address], 03/23/2022 17:53:52 12/27/19 24 01/01/2024 THINP REP TIS PAP clinical information: normal None given Not Available [address], [address], 01/01/2024 15:52:32 12/27/19 24 01/01/2024 THINP REP TIS PAP LMP: normal NONE GIVEN Not Available [address], [address], 01/01/2024 15:52:32 12/27/19 24 01/01/2024 THINP REP TIS PAP prev. Pap: normal NONE GIVEN Not Available [address], [address], 01/01/2024 15:52:32 12/27/19 24 01/01/2024 THINP REP TIS PAP prev. BX: normal NONE GIVEN Not Available [address], [address], 01/01/2024 15:52:32 12/27/19 24 01/01/2024 THINP REP TIS PAP source: normal None given Not Available [address], [address], 01/01/2024 15:52:32 12/27/19 24 01/01/2024 THINP REP TIS PAP statement of adequacy: normal Satis facto ry for evalu ation . Endoc ervic al/tr ansfo rmati on zone compo nent absen t. Not Available [address] [place], [address], 01/01/2024 15:52:32 12/27/19 24 01/01/2024 THINP REP TIS PAP interpretati on/result: normal Cytol ogy Resul ts: Negat blue for intra epith elial lesio n or malbelen beltran . Not Available [facility] [address] [place], [address], 01/01/2024 15:52:32 12/27/19 24 01/01/2024 THINP REP TIS PAP comment: normal This Pap test has been evalu ated with compu ter jose ramiro techn ology . Not Available [facility] [address], [place], [address], 01/01/2024 15:52:32 12/27/19 24 01/01/2024 THINP REP TIS PAP cytotechnolo gist: normal ESW, CT( CP) CT Scree alayna Locat ion: [facility] [place] [address] [place] [address] Not Available [address], [place], [address], 01/01/2024 15:52:32 12/27/19 24 01/01/2024 THINP REP [...] clini darren infor matio n. Not Available [facility] [address], [place], [address], 01/01/2024 15:52:32 12/27/19 24 01/03/2024 HPV HIGH [...] l cervi darren cytol ogy. Not Available [facility] [address] [place], [address], 01/04/2024 09:20:56 02/17/20 23 02/15/2023 MAMMO , scree alayna, digit al, bilat eral No observ ation record ed. [address] [facility] [address] [facility], [place], [address], 02/16/2023 09:26:03 02/20/20 24 02/20/2024 MAMMO , scree alayna, digit al, bilat eral No observ ation record ed. [address], [address], 02/20/2024 22:37:33 Result Notes None recorded. Problems Name Problem SNOMED Code Status Onset Date Resolution Date Notes Provider Name and Address Organization Details Recorded Time Breast neoplasm screenin g NOS Completed 201610/01/2016 Screenin g for breast cancer, unspecif ied; Location : None Severity : Moderate Progress : Stable Added By: Samaria Ocampo Add to Current Problems : YES ProblemS tatus: Resolve Not Available [facility] 1 20:40:09 Finding of menstrua l bleeding Completed 201509/29/2015 Oligomen orrhea, unspecif ied; Progress : Stable Added By: Samaria Ocampo Add to Current Problems : NO ProblemS tatus: Resolve Not Available [facility] 2 21:40:[address] Concept Completed 201607/17/2017 Encounte r for follow-u p examinat ion after complete d treatmen t for conditio ns other than malignan t neoplasm ; Progress : Stable Added By: Cris Lin Add to Current Problems : NO ProblemS tatus: Resolve Not Available [facility] 2 21:40:06 Surgical follow-u p - normal 558337997 Completed 201607/17/2017 Follow-u p exam followin g surgery; Location : None Severity : Moderate Progress : Stable Added By: Cris Lin Add to Current Problems : YES ProblemS tatus: Resolve Not Available [facility] 1 20:40:09 Breast neoplasm screenin g status 976963271 Completed 201610/01/2016 Encounte r for other screenin g for malignan t neoplasm of breast; Progress : Stable Added By: Samaria Ocampo Add to Current Problems : NO ProblemS tatus: Resolve Screenin g for breast cancer, unspecif ied; Location : None Progress : Stable Added By: Samaria Ocampo Add to Current Problems : YES ProblemS tatus: Resolve Not Available [facility] 2 21:40:06 Menometr orrhagia 203478074 Completed 201610/02/2017 Menometr orrhagia ; Location : None Progress : Stable Added By: Jackeline Soto Add to Current Problems : YES ProblemS tatus: Resolve Not Available [facility] 2 21:40:05 Oligomen orrhea 40891595 Completed 201509/29/2015 Oligomen orrhea; Location : None Progress : Stable Added By: Samaria Ocampo Add to Current Problems : YES ProblemS tatus: Resolve Not Available [facility] 2 21:40:05 Finding of menstrua l bleeding Completed 201610/02/2017 Excessiv e and frequent menstrua tion with regular cycle; Progress : Stable Added By: Jackeline Soto Add to Current Problems : NO ProblemS tatus: Resolve Not Available [facility] 2 21:40:05 Family planning educatio n done [id number] 9104 Completed 201409/20/2014 Family planning advice; Location : None Severity : Moderate Progress : Stable Added By: Fang Huizar Add to Current Problems : YES ProblemS tatus: Resolve Not Available [facility] 1 20:40:10 Herpes simplex 47950002 Completed 201409/20/2014 Herpes simplex, without complica tion; Location : None Progress : Stable Added By: Meckfess el, Fang A Add to Current Problems : YES ProblemS tatus: Resolve Not Available [facility] 21:40:05 Postoper ative follow-u p visit Completed 201607/17/2017 Follow-u p exam followin g surgery; Location : None Progress : Stable Added By: Cris Lin Add to Current Problems : YES ProblemS tatus: Resolve Not Available [facility] 21:40:05 Problem Notes None recorded. Procedures Surgical History Date Name Laterality Status Provider Name and Address Organization Details Recorded Time 02/16/20 23 Most Recent Mammogram completed Safia Romano MD [address] [facility], [place], [address], [facility] [employer] IV 02/16/2023 09:25:43 03/18/20 22 Date of Last [facility] Smear [facility] [employer] IV 10/25/2023 15:15:31 05/09/19 14 Date of Last Colonoscopy completed [facility] [employer] IV 03/18/2022 13:40:01 tonsillectomy completed Isabel [facility] [employer] [facility] IV 03/18/2022 13:41:08 hernia repair completed [facility] [employer] IV 03/18/2022 13:41:19 total replacement of right hip joint completed Isabel [facility] [employer] [facility] IV 03/18/2022 13:41:45 total replacement of left hip joint completed [facility] [employer] [facility] IV 11/21/2023 15:11:07 Imaging Results Imaging Date Name Status LastModified by Organiz ation Details LastModified Time 02/15/2023 MAMMO, screening, digital, bilateral completed [address] [address] [facility], [place], [address], 02/16/2023 09:26:03 02/20/2024 MAMMO, screening, digital, bilateral completed [address], [address], 02/20/2024 22:37:33 Procedure Notes None recorded. Medical [...] metFORMI N 500 mg oral tablet RxNorm: 716443 Allow Substitu tion: True Refill Denied: No [...] completed Prozac 40 mg oral capsule RxNorm: 337199 Allow Substitu tion: True Refill Denied: No [...] active Xanax 2 mg oral tablet RxNorm: 536431 Allow Substitu tion: True Refill Denied: No [...] succinat e 50 mg oral tablet RxNorm: 710134 Allow Substitu tion: True Refill Denied: No [...] 08/15 completed Acyclovi r 400mg Tablet RxNorm: 696201 Allow Substitu tion: True Refill Denied: No [...] oral Tablet, Extended Release 12 hr RxNorm: 525070 Refill Denied: No Refill DateOccu rred: 02/18/20 [...] completed Metformi n HCl 500mg Tablet RxNorm: 596759 Allow Substitu tion: True Refill Denied: No Refill DateOccu rred: 07/23/19 15 Not Available Not Available Not Available sumatript an PRN 03/18 completed Sumatrip freeman 50mg Tablet RxNorm: 019866 Allow Substitu tion: True Refill Denied: No Refill DateOccu rred: 07/31/19 16 Not Available Not Available Not Available acyclovir 1 p.o. qd 07/22 completed Acyclovi r 400mg Tablet RxNorm: 693888 Allow Substitu tion: True Refill Denied: No Not Available Not Available Not Available Zyprexa Take 1 tablet(s ) by mouth daily 2014 active Zyprexa 20mg Tablet RxNorm: 489301 Allow Substitu tion: True Refill Denied: No Refill DateOccu rred: 07/23/19 15 Not Available Not Available Not Available Prozac Take 2 capsule( s) by mouth qam 2014 active Prozac 40mg Capsules RxNorm: 698935 Allow Substitu tion: True Refill Denied: No Refill DateOccu rred: 07/23/19 15 Not Available Not Available Not Available Lamictal Take 1 tablet(s ) by mouth daily 2014 active Lamictal 200mg Tablet RxNorm: 482989 Allow Substitu tion: True Refill Denied: No Refill DateOccu rred: 07/23/19 15 Not Available Not Available Not Available Xanax Take 1 tablet(s ) by mouth tid prn 12/26 completed Xanax 2mg Tablet RxNorm: 253592 Allow Substitu tion: True Refill Denied: No [...] Updated DateTime 03/18/2022 175.26 cm 28.2 kg/m2 65796.86 g Isabel Lemons [facility] [employer] IV 03/18/2022 13:38:52 Date Recorded Body height Body mass index (BMI) Body weight Body temperature Systolic blood pressure Diastolic blood pressure Provider Name and Address Organization Details Last Updated DateTime 4 172.72 cm 24.3 kg/m2 52933.7 8 g 94.9 [degF] 104 mm[Hg] 64 mm[Hg] Pippa Cliff [facility] [employer] IV 4 15:12:30 Date Recorded Body height Body mass index (BMI) Body weight Systolic blood pressure Diastolic blood pressure Provider Name and Address Organization Details Last Updated DateTime 12/27/2023 172.72 cm 24.8 kg/m2 55972.84 g 110 mm[Hg] 70 mm[Hg] Isabel Lemons [employer] [facility] 13:34:43 Social History Question Answer Notes LastModified by Organizat ion Details LastModified Time Tobacco Smoking Status Never Smoker Isabel Lemons null, [employer] [facility] 03/18/2022 13:40:50 What Is Your Level Of Alcohol Consumption? Occasional [email or web address] Information not available 03/18/2022 How Many Times Per Week Do You Consume Alcohol? 1-2 Times Per Week [email or web address] Information not available 11/21/2023 Are You Blind Or Do You Have Difficulty Seeing? No Information not available 03/18/2022 Are You Deaf Or Do You Have Serious Difficulty Hearing? No [email or web address] Information not available 03/18/2022 What Type Of Diet Are You Following? REGULAR [email or web address] Information not available 03/18/2022 How Many Children Do You Have? 0 [email or web address] Information not available 11/21/2023 What Is Your Relationship Status? 30 Years [email or web address] Information not available 11/21/2023 Are You Sexually Active? Yes [email or web address] Information not available 03/18/2022 Do You Use Any Illicit Or Recreational Drugs? No Information not available 03/18/2022 Do You Or Have You Ever Used Any Other Forms Of Tobacco Or Nicotine? No [email or web address] Information not available 03/18/2022 Sex: Unknown Functional Status Question Answer Note LastModified by Organization D etails LastModified Time What is your exercise level? None [email or web address] Information not available 11/21/2023 Mental Status None recorded. Family History Relationship Description Onset Age of this Age Resolved Age Notes LastModified by Organization Details LastModified Time Father No current problems or disability [email or web address] Not available 03/09 13:40:19 Mother No current problems or disability [email or web address] Not available 03/09 13:40:19 Medical History Condition Response Other Cancer N High Blood Pressure N Colon Cancer N Cytomegalovirus N Hyperthyroidism N Herpes (HSV) N Breast Cancer N Blood Transfusion N MRSA N Lung Cancer N Hypothyroidism N Depression N Incontinence N Panic Attacks N Neurological Disorder N Deep Vein Thrombosis N Anxiety Disorder N Autoimmune disease N Arthritis N Tuberculosis/Positive PPD N Shingles N Polycystic Ovarian Syndrome N Cervical Cancer N Chlamydia N Hematuria N Stroke N Varicosities N Crohn's Disease N Seasonal allergies N Alzheimer's/Dementia N COPD/Emphysema N HPV/Genital Warts N Endometriosis N IBS (Irritable Bowel Syndrome) N History of Abnormal Pap N High Cholesterol N Liver Disease N Kidney Infection N Fibromyalgia N Ulcer N Kidney Disease N HIV N Gallbladder disease N Sickle Cell Disease/Trait N Von Willebrand disease N ADD/ADHD N Eating Disorder N Anemia N Diabetes Mellitus (non-insulin dependent ) N Ovarian Problems N Multiple Sclerosis N Gonorrhea N Frequent Urinary Tract infections N Osteopenia N Headaches/migraines N GERD (reflux) N Ovarian Cancer N Diabetes (insulin dependent) N Seizures/Epilepsy N Fibroids N Heart Attack N Asthma N Lupus N Endometrial Cancer N Rubella [...] SNOMED-CT Code Diagnosis ICD10 Code Diagnosis Note [id number] Safia Romano MD [facility] [address] [place] [address] 03/18/2022 13:22:21 03/18/2022 14:06:05 Gynecologic examination 89540374 Z01.419 Screening for malignant neoplasm of cervix 735506619 Z12.4 Screening for malignant neoplasm of breast 614479233 Z12.39 [id number] Jesús Fagan MD [address] [place] [address] 11/21/2023 14:07:05 11/21/2023 15:52:07 Menopausal symptom 29958872 N95.1 discussed any form of transderma l estrogen and prometrium 100mg daily orally or proogester one 50mg transderma lly daily or prometrium 200mg days 1-10 q 1 to 4th month or no progestron e and us in 6 months x 2 then yearly after unoppsed HRT aswell as possibly osphena and vagifem... .can do any combinatio n and will call [facility] pharmacy for any hormone regimen if desires to [facility] in [facility] for estrogen cream vaginally or E,P,and or Testostero ne cream combinatio n and we would use estriol only as a form of estrogen for least amt of stimulatio n to the breast if desiresFOL LOW-UP: Schedule follow-up appointmen ts on a p.r.n. basis. .Additiona l diagnosis detail: Menopausal symptoms Atrophic vaginitis 81743 000 N95.2 [id number] Safia Romano MD [facility] [address] [place] [address] 12/27/2023 13:12:53 12/27/2023 13:59:29 Gynecologic examination 07218529 Z01.419 Screening for malignant neoplasm of cervix 876982677 Z12.4 Screening for malignant neoplasm of breast 247249336 Z12.31 Depression screening 171 273139 Z13.31 refer to intake screening Health Concerns Section Related Observation LastModified by Organization Detai ls LastModified Time None Recorded Concern Status LastModified by Organization Details LastModified Time None Recorded Advance Directives Directive None Recorded Payers Encounter Date Sequence Insurance Name Policy Number Policy Dobson Covered Member ID Dobson Member ID Guarantor Name 03/18/2022 2 [place] Abby E Mert [id number] Abby Rudd Mert 03/18/2022 2 [facility] [employer] [id number] Abby Rudd Mert 11/21/2023 2 [place] Abby E Mert [id number] Abby Rudd Mert 12/27/2023 2 [place] Abby E Mert [id number] Abby Rudd Mert Notes Date Note Type Note Provider Name and Address Organization Details Recorded Time 03/18/2022 text/html Annual [employer] Post-MenopausalRep orted bypatient.Menopaus al Symptoms:no menopausal symptoms [...] annual well women visit Safia Romano MD [address] [place] [address], [phone], [facility] [employer] IV 03/18/2022 13:55:06 11/21/2023 text/html Annual GYNReport [...] had been on HRT Jesús Fagan MD [address] [place] [address], [phone], [facility] [employer] IV 11/21/2023 15:50:37 12/27/2023 text/html Annual [employer] Post-MenopausalRep orted bypatient.Menopaus al Symptoms:hot flashes Vaginal [...] 02/15/2023, Last colonoscopy 2013 Safia Romano MD [address] [place] [address], [phone], [facility] [employer] IV 12/27/2023 13:58:56 OBGyn Episode No OBEpisode recorded.
== END 2024-07-18 12:46 | disposition home or self-care (01) ==
PROVIDERS: PCP Family Medicine; Visit Provider Urology
DX: N20.0 Calculus of kidney (principal); Z96.0 Presence of urogenital implants
CPT/HCPCS: 74018